=== PATIENT | male | born 1955 | race Caucasian/White ===

== ENCOUNTER 2017-03-05 07:42 | Inpatient (IN) | payer MEDICAID ==
[2017-03-05] MEDS ORDERED: CLINDAMYCIN 600 MG/D5W RTU 50 ML IV ONE (08:15)
[2017-03-05] MEDS ORDERED: LEVOFLOXACIN 750 MG/D5W RTU 150 ML IV ONE (08:15)
--- NOTE | 2017-03-05 08:20 | ER Document Report ---
ED Wound - General Chief Complaint: Wound Infection Stated Complaint: WOUND ON RIGHT FOOT Time Seen by Provider: 03/05/17 08:00 Mode of Arrival: Ambulatory Information source: Patient Notes: Patient is a 61-year-old male with diabetes who presents to the ER today for ulcer to the right foot. Patient states that he has had a chronic ulcer to the bottom of the right foot for a year, however over the past 3 days he has developed a blister that turned into an ulcer to the top of the right foot and then the entire foot became red overnight. He denies any fever, chills. He has peripheral neuropathy from his diabetes that he does not actually feel any pain to the foot. He has been going to wound care for the chronic ulcer. He denies any drainage from the area. TRAVEL OUTSIDE OF THE [place] IN LAST 30 DAYS: No - Related Data Allergies/Adverse Reactions: No Known Allergies Allergy (Verified 03/05/17 08:20) Past Medical History - General Information source: Patient - Social History Smoking Status: Unknown if Ever Smoked Family History: DM Patient has suicidal ideation: No Patient has homicidal ideation: Yes - Past Medical History Cardiac Medical History: Reports: Hx Hypertension Pulmonary Medical History: Reports: Hx Pneumonia Endocrine Medical History: Reports: Hx Diabetes Mellitus Type 2 Renal/ Medical History: Denies: Hx Peritoneal Dialysis Musculoskeltal Medical History: Reports Hx Arthritis - Immunizations Hx Diphtheria, Pertussis, Tetanus Vaccination: Yes Review of Systems - Review of Systems Constitutional: No symptoms reported EENT: No symptoms reported Cardiovascular: No symptoms reported Respiratory: No symptoms reported Gastrointestinal: No symptoms reported Genitourinary: No symptoms reported Male Genitourinary: No symptoms reported Musculoskeletal: No symptoms reported Skin: See HPI Hematologic/Lymphatic: No symptoms reported Neurological/Psychological: No symptoms reported Physical Exam - Vital signs Vitals: Temp Pulse Resp BP Pulse Ox 98.4 F 80 18 97/59 L 95 03/05/17 07:45 03/05/17 07:45 03/05/17 07:45 03/05/17 07:45 03/05/17 07:45 - Notes Notes: PHYSICAL EXAMINATION: GENERAL: Well-appearing and in no acute distress. HEAD: Atraumatic, normocephalic. EYES: Pupils equal round and reactive to light, extraocular movements intact, sclera anicteric, conjunctiva are normal. ENT: ear canals without erythema or foreign body, TMs pearly godwin with good bony landmarks, nares patent, oropharynx clear without exudates. Moist mucous membranes. NECK: Normal range of motion, supple without lymphadenopathy LUNGS: CTAB and equal. No wheezes rales or rhonchi. HEART: Regular rate and rhythm without murmurs EXTREMITIES: Normal range of motion,1+ pitting edema to right lower extremity. No cyanosis. NEUROLOGICAL: Cranial nerves grossly intact. Normal sensory/motor exams. PSYCH: Normal mood, normal affect. SKIN: Warm, Dry, normal turgor, 2cm in diameter diabetic ulcer to the right foot , plantar surface, no drainage, chronic, 4cm in diameter ulcer to the dorsal/ lateral surface of the right foot with large purulent fluid, erythema over entire dorsum of foot, nontender due to neuropathy. Course - Re-evaluation Re-evalutation: 03/05/17 10:40 A fly flew out of the right foot ulcer when unwrapped, pt afebrile with normal white blood cell count. However patient's wound looks like it needs to be debrided, it does appear like the 2 ulcers are probably connected, I have high suspicion for osteomyelitis although x-ray reports no evidence. I did have surgeon environmental manager Dr. Walden, take a look at the wound as well as my attending Dr. Love, who agreed that it probably needs debridement. Surgeon recommends MRI. Dr. Disla, hospitalist on-call agrees to admit at this time for IV antibiotics, possible debridement if surgical consult and MRI. - Vital Signs Vital signs: Temp Pulse Resp BP Pulse Ox 97.5 F 62 18 127/75 H 96 03/05/17 10:39 03/05/17 10:39 03/05/17 08:05 03/05/17 10:39 03/05/17 10:39 - Laboratory Result Diagrams: 03/05/17 08:31 03/05/17 08:31 Laboratory results interpreted by me: 03/05/17 03/05/17 08:31 08:31 RBC 3.89 L Hgb 9.8 L Hct 30.6 L MCV 79 L MCH 25.1 L MCHC 31.9 L RDW 14.6 H Eosinophils % 6.3 H Glucose 190 H Discharge - Discharge Clinical Impression: Diabetic foot infection Condition: Stable Disposition: ADMITTED INPATIENT Admitting Provider: Hospitalist Unit Admitted: Medical Floor
[2017-03-05 08:54] LABS: ABSOLUTE BASOPHILS # (AUTO) 0.1 10^3/uL (0.0-0.2); ABSOLUTE EOSINOPHILS # (AUTO) 0.6 10^3/uL (0.0-0.6); ABSOLUTE MONOCYTES (AUTO) 0.6 10^3/uL (0.1-1.4); ABSOLUTE NEUT (AUTO) 6.2 10^3/uL (1.7-8.2); BASOPHILS % (AUTO) 1.1 % (0-2); EOSINOPHILS % (AUTO) 6.3 % (0-6); HEMATOCRIT 30.6 % (37.9-51.0); HEMOGLOBIN 9.8 g/dL (13.5-17.0); HGB HCT DIFFERENCE -1.2; LYMPHOCYTES % (AUTO) 20.9 % (13-45); MEAN CORPUSCULAR HEMOGLOBIN 25.1 pg (27.0-33.4); MEAN CORPUSCULAR HGB CONC 31.9 g/dL (32.0-36.0); MEAN CORPUSCULAR VOLUME 79 fl (80-97); MONOCYTES % (AUTO) 6.1 % (3-13); RED BLOOD COUNT 3.89 10^6/uL (4.35-5.55); RED CELL DISTRIBUTION WIDTH 14.6 % (11.5-14.0); SEGMENTED NEUTROPHILS % (AUTO) 65.6 % (42-78); WHITE BLOOD COUNT 9.4 10^3/uL (4.0-10.5)
[2017-03-05 09:09] LABS: ALANINE AMINOTRANSFERASE 25 U/L (21-72); ALBUMIN 3.5 g/dL (3.5-5.0); ALKALINE PHOSPHATASE 58 U/L (38-126); ANION GAP 11 (5-19); ASPARTATE AMINO TRANSFERASE 20 U/L (17-59); BILIRUBIN,DIRECT 0.3 mg/dL (0.0-0.4); BILIRUBIN,TOTAL 0.6 mg/dL (0.2-1.3); BLOOD UREA NITROGEN 18 mg/dL (7-20); CALCIUM 9.3 mg/dL (8.4-10.2); CARBON DIOXIDE 26 mmol/L (22-30); CHLORIDE 102 mmol/L (98-107); CREATININE RESULT 1.07 mg/dL (0.52-1.25); GLUCOSE 190 mg/dL (75-110); POTASSIUM 4.8 mmol/L (3.6-5.0); SODIUM 139.1 mmol/L (137-145); TOTAL PROTEIN 7.1 g/dL (6.3-8.2)
--- NOTE | 2017-03-05 10:13 | RADIOLOGY REPORT (SQ) ---
EXAM DESCRIPTION: FOOT RIGHT COMPLETE COMPLETED DATE/TIME: 03/05/2017 9:40 am REASON FOR STUDY: diabetic foot infection COMPARISON: None. NUMBER OF VIEWS: Three views. TECHNIQUE: AP, lateral and oblique radiographic images acquired of the right foot. LIMITATIONS: None. FINDINGS: MINERALIZATION: Normal. BONES: No fracture or dislocation. No evidence of osteomyelitis. JOINTS: No effusions. SOFT TISSUES: There is a prominent wound on the lateral aspect of the foot near the head of 5th metat arsal. OTHER: No other significant finding. IMPRESSION: Soft tissue wound with no evidence of osteomyelitis. TECHNICAL DOCUMENTATION: JOB ID: [id number] [employer]- All Rights Reserved
[2017-03-05] MEDS ORDERED: DEXTROSE 50%-WATER 25 GM/50 ML DISP.SYRIN IV PRN ×2 (10:38)
[2017-03-05] MEDS ORDERED: DEXTROSE 40% GEL 15 GM TUBE PO PRN ×2 (10:38)
[2017-03-05] MEDS ORDERED: GLUCAGON,HUMAN RECOMB 1 MG INJ IM PRN (10:38)
[2017-03-05] MEDS ORDERED: ACETAMINOPHEN 325 MG TABLET PO PRN (10:41)
[2017-03-05] MEDS ORDERED: ONDANSETRON HCL INJ/PF 4 MG/2 ML SDV IV PRN (10:41)
[2017-03-05 10:59] LABS: PROTHROMBIN TIME 14.4 SEC (11.4-15.4)
[2017-03-05 11:00] LABS: PARTIAL THROMBOPLASTIN TIME 45.7 SEC (23.5-35.8)
--- NOTE | 2017-03-05 11:20 | RADIOLOGY REPORT (SQ) ---
EXAM DESCRIPTION: CHEST SINGLE VIEW COMPLETED DATE/TIME: 03/05/2017 11:08 am REASON FOR STUDY: preop COMPARISON: CT angio chest 10/27/2013 Chest films 10/26/2013, 04/05/2016, 09/27/2016 EXAM PARAMETERS: NUMBER OF VIEWS: One view. TECHNIQUE: Single frontal radiographic view of the chest acquired. RADIATION DOSE: NA LIMITATIONS: Lordotic AP portable film FINDINGS: LUNGS AND PLEURA: No opacities, masses or pneumothorax. No pleural effusion. MEDIASTINUM AND HILAR STRUCTURES: No masses. Contour normal. HEART AND VASCULAR STRUCTURES: Cardiac silhouette size accentuated by lordotic portable technique. M ild cardiomegaly. Sternotomy for CABG. BONES: No acute findings. HARDWARE: None in the chest. OTHER: No other significant finding. IMPRESSION: No acute findings TECHNICAL DOCUMENTATION: JOB ID: [id number]
[2017-03-05] MEDS ORDERED: ENOXAPARIN SODIUM INJ 40 MG/0.4 ML DISP.SYRIN SUBCUT ONE (11:30)
--- NOTE | 2017-03-05 14:02 | PDOC H&P ---
History of Present Illness Admission Date/PCP: 03/05/17 10:41 [facility] Patient complains of: Right foot drainage History of Present Illness: RICARDO WELLS is a 61 year old male with past medical history of diabetes mellitus, coronary artery disease status post coronary artery bypass graft, peripheral vascular disease status post left first toe amputation presents with 4 day history of increasing right foot swelling and now a new wound on dorsal aspect of lateral right foot with drainage. Patient has had a one-year history of diabetic foot ulcer on the lateral plantar aspect of the right first foot that he has provided local wound care to. He states that he is on oral hypoglycemics for diabetes however he does not recall the names of them top of his head. I do not see a record of medications being filled in the electronic medical record, however some pharmacies do not SYNC with our computer. Past Medical History Cardiac Medical History: Reports: Coronary Artery Disease, Hypertension, Peripheral Vascular Disease Pulmonary Medical History: Reports: Pneumonia Endocrine Medical History: Reports: Diabetes Mellitus Type 2 Musculoskeltal Medical History: Reports: Arthritis Past Surgical History Past Surgical History: Reports: Coronary Artery Bypass Graft, Orthopedic Surgery - left 2nd toe amputated Social History Information Source: Patient Lives with: Alone Smoking Status: Never Smoker Frequency of Alcohol Use: None Hx Recreational Drug Use: No Hx Prescription Drug Abuse: No - Advance Directive Resuscitation Status: Full Code Family History Family History: DM Parental Family History Reviewed: Yes Children Family History Reviewed: Yes Sibling(s) Family History Reviewed.: Yes Medication/Allergy Home Medications: Gabapentin [Neurontin 300 mg Capsule] 300 mg PO QHS #30 capsule 11/01/13 Glimepiride [Amaryl 1 mg Tablet] 2 mg PO QAM #30 tablet 11/01/13 Metformin HCl [Glucophage 500 mg Tablet] 1,000 mg PO BIDACBS #60 tablet Allergies/Adverse Reactions: No Known Allergies Allergy (Verified 03/05/17 08:20) Review of Systems Constitutional: ABSENT: chills, fever(s), headache(s), weight gain, weight loss Eyes: ABSENT: visual disturbances Ears: ABSENT: hearing changes Cardiovascular: ABSENT: chest pain, dyspnea on exertion, edema, orthropnea, palpitations Respiratory: ABSENT: cough, hemoptysis Gastrointestinal: ABSENT: abdominal pain, constipation, diarrhea, hematemesis, hematochezia, nausea, vomiting Genitourinary: ABSENT: dysuria, hematuria Musculoskeletal: ABSENT: joint swelling Integumentary: PRESENT: erythema, wounds, other - Drainage from right foot wound. ABSENT: rash Neurological: ABSENT: abnormal gait, abnormal speech, confusion, dizziness, focal weakness, syncope Psychiatric: ABSENT: anxiety, depression, homidical ideation, suicidal ideation Endocrine: ABSENT: cold intolerance, heat intolerance, polydipsia, polyuria Hematologic/Lymphatic: ABSENT: easy bleeding, easy bruising Physical Exam Vital Signs: Temp Pulse Resp BP Pulse Ox 97.5 F 63 20 126/79 H 96 03/05/17 12:46 03/05/17 12:46 03/05/17 12:46 03/05/17 12:46 03/05/17 12:46 PHYSICAL EXAM: GENERAL: Appears well, no acute distress HEENT: Normocephalic, no scleral icterus, conjunctiva clear, EOEM intact, PERRLA , moist mucous membranes NECK: trachea midline, no thyromegally RESPIRATORY: Clear to auscultation, no wheezes/rhonchi CARDIAC: Regular rate and rhythm, no murmur/susan/rub ABDOMEN: Soft, no distension, no tenderness, no guarding, normal bowel sounds, negative Gomez sign RECTAL: deferred : deferred EXTREMITIES: No edema, cyanosis, clubbing MUSCULOSKELETAL: No joint swelling or deformity VASCULAR: Diminished dorsalis pedis pulse in right foot, right foot is warm to touch, hair loss pattern in right lower extremity consistent with peripheral vascular disease NEUROLOGIC: Alert, oriented to person/place/time, normal speech, cranial nerves grossly intact, 5/5 strength in all extremities, tactile sensation intact in all extremities SKIN: 1 cm open wound to dorsal aspect of right lateral foot with purulent drainage and surrounding erythema, 1 cm open ulceration to plantar aspect of lateral right foot PSYCHIATRIC: Normal mood, normal affect Results Laboratory Results: Labs- All tests 24 hr 03/05/17 03/05/17 03/05/17 08:31 08:31 08:31 WBC 9.4 RBC 3.89 L Hgb 9.8 L Hct 30.6 L MCV 79 L MCH 25.1 L MCHC 31.9 L RDW 14.6 H Plt Count 377 Seg Neutrophils % 65.6 Lymphocytes % 20.9 Monocytes % 6.1 Eosinophils % 6.3 H Basophils % 1.1 Absolute Neutrophils 6.2 Absolute Lymphocytes 2.0 Absolute Monocytes 0.6 Absolute Eosinophils 0.6 Absolute Basophils 0.1 PT 14.4 INR 1.05 APTT 45.7 H Sodium 139.1 Potassium 4.8 Chloride 102 Carbon Dioxide 26 Anion Gap 11 BUN 18 Creatinine 1.07 Est GFR ( Amer) > 60 Est GFR (Non-Af Amer) > 60 Glucose 190 H POC Glucose Calcium 9.3 Total Bilirubin 0.6 Direct Bilirubin 0.3 Indirect Bilirubin Not Reportable Neonat Total Bilirubin Not Reportable AST 20 ALT 25 Alkaline Phosphatase 58 Total Protein 7.1 Albumin 3.5 03/05/17 11:27 WBC RBC Hgb Hct MCV MCH MCHC RDW Plt Count Seg Neutrophils % Lymphocytes % Monocytes % Eosinophils % Basophils % Absolute Neutrophils Absolute Lymphocytes Absolute Monocytes Absolute Eosinophils Absolute Basophils PT INR APTT Sodium Potassium Chloride Carbon Dioxide Anion Gap BUN Creatinine Est GFR ( Amer) Est GFR (Non-Af Amer) Glucose POC Glucose 141 H Calcium Total Bilirubin Direct Bilirubin Indirect Bilirubin Neonat Total Bilirubin AST ALT Alkaline Phosphatase Total Protein Albumin Impressions: Foot X-Ray 03/05/17 08:15 IMPRESSION: Soft tissue wound with no evidence of osteomyelitis. Chest X-Ray 03/05/17 10:43 IMPRESSION: No acute findings Assessment & Plan - Diagnosis (1) Diabetic foot infection Is this a current diagnosis for this admission?: YesPlan: Start patient on IV antibiotics. Consult surgery for recommendations. Check MRI of the foot. (2) Diabetic foot ulcer Qualifiers: Diabetic foot ulcer location: midfoot Diabetes mellitus type: type 2 Laterality: right Non-pressure ulcer stage: unspecified non-pressure ulcer stage Qualified Code(s): E11.621 - Type 2 diabetes mellitus with foot ulcer; L97.419 - Non-pressure chronic ulcer of right heel and midfoot with unspecified severity Is this a current diagnosis for this admission?: Yes (3) Diabetes Is this a current diagnosis for this admission?: YesPlan: Hold oral hypoglycemics for now to see if patient will need surgery. Sliding scale insulin. Check hemoglobin A1c. (4) Coronary artery disease Is this a current diagnosis for this admission?: Yes (5) Peripheral vascular disease Is this a current diagnosis for this admission?: YesPlan: Status post remote left first toe amputation. Check lipid panel. Consider addition of aspirin if patient does not require surgery given history of coronary artery disease. - Time Time Spent: Greater than 70 Minutes
--- NOTE | 2017-03-05 14:47 | RADIOLOGY REPORT (SQ) ---
EXAM DESCRIPTION: MRI RT LOWER EXTREMITY WITHOUT COMPLETED DATE/TIME: 03/05/2017 2:03 pm REASON FOR STUDY: right foot infection COMPARISON: None. TECHNIQUE: T1-weighted, T2-weighted, and gradient echo noncontrast multiplanar imaging of the right foot. LIMITATIONS: None. FINDINGS: Patient has a soft tissue ulcer along the plantar aspect of the right 5th metatarsophalang eal joint. This is best shown on coronal image 16 and sagittal image 3. No adjacent marrow signal a bnormalities of the 5th metatarsal head or base proximal 5th toe proximal phalanx. However, there is some cortical thinning of the 5th metatarsal diaphysis on axial image 19 worrisome for early involve ment with osteomyelitis. About 2 cm dorsal to the ulceration, there is a 2 x 2 x 1 cm fluid collection along the dorsal latera l aspect of the right foot, at the level of the distal diaphysis 5th metatarsal. This finding is wor risome for abscess. This wraps around from the dorsal aspect of the foot, along the lateral subcutan eous fat, and into the plantar aspect of the right foot subcutaneous fat. Along the plantar aspect o f the foot, a 2 x 1 x 1.3 cm fluid collection is evident on axial STIR image 19, coronal image 27, an d sagittal image 8. This plantar fluid collection is superficial to the flexor digitorum tendons and muscle. Diffuse surrounding skin thickening and edema from cellulitis. MARROW SIGNAL: No marrow signal abnormalities worrisome for occult fracture. Cortical thinning, 5th metatarsal proximal diaphysis worrisome for early involvement with osteomyelitis JOINT EFFUSION: No significant effusions. PLANTAR FASCIA: Normal as visualized. TARSOMETATARSAL AND TOE ARTICULATIONS: Anatomic. Mild degenerative changes first metatarsal phalange al joint. INTERMETATARSAL SPACES AND PLANTAR PLATES: Intact. No soft tissue mass to suggest a neuroma. SOFT TISSUES: As above OTHER: No other significant finding. IMPRESSION: Right foot plantar ulcer at the 5th metatarsophalangeal region with surrounding cellulit is and soft tissue abscess as above. Early demineralization of the lateral edge 5th metatarsal distal metaphysis worrisome for early invol vement with osteomyelitis TECHNICAL DOCUMENTATION: JOB ID: [id number] [employer]- All Rights Reserved
[2017-03-05] MEDS: CLINDAMYCIN 600 MG/D5W RTU 50 ML IV SCH ×2 (14:50→22:12)
[2017-03-05 15:35] LABS: FOLATE 9.49 ng/mL (>2.76)
--- NOTE | 2017-03-05 21:22 | EKG REPORT ---
SEVERITY:- ABNORMAL ECG - SINUS RHYTHM BORDERLINE LEFT AXIS DEVIATION CONSIDER ANTEROSEPTAL INFARCT : Confirmed by: Rafaela Treviño 05-Mar-2017 21:21:49
--- NOTE | 2017-03-05 21:36 | PDOC CONSULTATION ---
Consultation Consult Date: 03/05/17 Attending physician:: RICARDO CHESTER Consult reason:: Ulcer dorsum of right foot History of Present Illness Admission Date/PCP: 03/05/17 10:41 Patient complains of: Draining ulcer on his right foot 3 days duration History of Present Illness: RICARDO WELLS is a 61 year old male with past medical history of diabetes mellitus, coronary artery disease status post coronary artery bypass graft, peripheral vascular disease status post left first toe amputation presents with 4 day history of increasing right foot swelling and now a new wound on dorsal aspect of lateral right foot with drainage. Patient has had a one-year history of diabetic foot ulcer on the lateral plantar aspect of the right first foot that he has provided local wound care to. He states that he is on oral hypoglycemics for diabetes however he does not recall the names of them top of his head. I do not see a record of medications being filled in the electronic medical record, however some pharmacies do not SYNC with our computer. The patient also admits to a history of an ulcer on the plantar surface of the right foot that he noticed approximately 1 year ago. He is seeing physicians for that in the past and they told him to continue to "take care of it with Neosporin and gauze dressings. He states he has been doing that but at times when he walks on it for prolonged period of time it begins to open again and drained. He denies any fever, chills, sweats associated with the new ulcer that was noted approximately 3 days ago. He denies any pain in the right foot. Past Medical History Cardiac Medical History: Reports: Coronary Artery Disease, Hypertension, Peripheral Vascular Disease Pulmonary Medical History: Reports: Pneumonia Endocrine Medical History: Reports: Diabetes Mellitus Type 2 Musculoskeltal Medical History: Reports: Arthritis Past Surgical History Past Surgical History: Reports: Coronary Artery Bypass Graft, Orthopedic Surgery - left 2nd toe amputated Social History Lives with: Alone Smoking Status: Former Smoker Frequency of Alcohol Use: None Hx Recreational Drug Use: No Hx Prescription Drug Abuse: No - Advance Directive Resuscitation Status: Full Code Family History Family History: DM Parental Family History Reviewed: Yes - dm Children Family History Reviewed: Unknown Sibling(s) Family History Reviewed.: Unknown Medication/Allergy Home Medications: Furosemide [Lasix] 40 mg PO DAILY 03/05/17 Gabapentin [Neurontin 300 mg Capsule] 300 mg PO Q8 03/05/17 Metformin HCl [Glucophage] 850 mg PO DAILY 03/05/17 Potassium Chloride [K-Tab ER] 20 meq PO DAILY 03/05/17 Allergies/Adverse Reactions: No Known Allergies Allergy (Verified 03/05/17 08:20) Review of Systems Constitutional: PRESENT: as per HPI Eyes: PRESENT: as per HPI, other - Diabetic retinopathy Ears: ABSENT: hearing changes Cardiovascular: PRESENT: as per HPI Respiratory: PRESENT: as per HPI Gastrointestinal: PRESENT: other - Positive large hernia near his umbilicus Genitourinary: PRESENT: as per HPI Musculoskeletal: PRESENT: as per HPI Integumentary: PRESENT: wounds - Right foot plantar surface overlying the fifth metatarsal head Right foot anterior lateral surface overlying the fifth metatarsal head Neurological: PRESENT: as per HPI, other - Positive for diabetic neuropathy lower extremities bilaterally nearly to the level of the knee Psychiatric: PRESENT: as per HPI Endocrine: PRESENT: as per HPI, polydipsia, polyphagia, polyuria Hematologic/Lymphatic: PRESENT: as per HPI Allergic/Immunologic: PRESENT: as per HPI Physical Exam Vital Signs: Temp Pulse Resp BP Pulse Ox 97.8 F 68 18 121/80 97 03/05/17 14:41 03/05/17 14:41 03/05/17 14:41 03/05/17 14:41 03/05/17 14:41 Intake & Output 03/04/17 03/05/17 03/06/17 06:59 06:59 06:59 Intake Total 930 Balance 930 Weight 120.3 kg General appearance: PRESENT: no acute distress, obese, well-developed, well- nourished Head exam: PRESENT: atraumatic, normocephalic Eye exam: PRESENT: conjunctiva pink, EOMI, PERRLA. ABSENT: scleral icterus Ear exam: PRESENT: normal external ear exam Mouth exam: PRESENT: moist, tongue midline Neck exam: ABSENT: carotid bruit, JVD, lymphadenopathy, thyromegaly Respiratory exam: PRESENT: clear to auscultation angie. ABSENT: rales, rhonchi, wheezes Cardiovascular exam: PRESENT: RRR. ABSENT: diastolic murmur, rubs, systolic murmur Pulses: PRESENT: normal dorsalis pedis pul, +1 pedal pulses bilateral Vascular exam: PRESENT: normal capillary refill GI/Abdominal exam: PRESENT: hernia - Umbilical hernia, incarcerated with associated diastases recti cephalad to the incarcerated umbilical hernia Rectal exam: PRESENT: deferred Extremities exam: PRESENT: full ROM. ABSENT: calf tenderness, clubbing, pedal edema Musculoskeletal exam: PRESENT: ambulatory Neurological exam: PRESENT: alert, awake, oriented to person, oriented to place , oriented to time, oriented to situation, CN II-XII grossly intact. ABSENT: motor sensory deficit Psychiatric exam: PRESENT: appropriate affect, normal mood. ABSENT: homicidal ideation, suicidal ideation Skin exam: PRESENT: other - Positive for the above-noted ulcers right foot Results Laboratory Results: Labs- Entire Visit 03/05/17 03/05/17 03/05/17 08:31 08:31 08:31 WBC 9.4 RBC 3.89 L Hgb 9.8 L Hct 30.6 L MCV 79 L MCH 25.1 L MCHC 31.9 L RDW 14.6 H Plt Count 377 Seg Neutrophils % 65.6 Lymphocytes % 20.9 Monocytes % 6.1 Eosinophils % 6.3 H Basophils % 1.1 Absolute Neutrophils 6.2 Absolute Lymphocytes 2.0 Absolute Monocytes 0.6 Absolute Eosinophils 0.6 Absolute Basophils 0.1 Retic Count (auto) Absolute Retic PT 14.4 INR 1.05 APTT 45.7 H Sodium 139.1 Potassium 4.8 Chloride 102 Carbon Dioxide 26 Anion Gap 11 BUN 18 Creatinine 1.07 Est GFR ( Amer) > 60 Est GFR (Non-Af Amer) > 60 Glucose 190 H POC Glucose Hemoglobin A1c % Calcium 9.3 Iron TIBC % Saturation Ferritin Total Bilirubin 0.6 Direct Bilirubin 0.3 Indirect Bilirubin Not Reportable Neonat Total Bilirubin Not Reportable AST 20 ALT 25 Alkaline Phosphatase 58 Total Protein 7.1 Albumin 3.5 Vitamin B12 Folate 03/05/17 03/05/17 03/05/17 08:31 08:31 08:31 WBC RBC Hgb Hct MCV MCH MCHC RDW Plt Count Seg Neutrophils % Lymphocytes % Monocytes % Eosinophils % Basophils % Absolute Neutrophils Absolute Lymphocytes Absolute Monocytes Absolute Eosinophils Absolute Basophils Retic Count (auto) 1.36 Absolute Retic 0.052 PT INR APTT Sodium Potassium Chloride Carbon Dioxide Anion Gap BUN Creatinine Est GFR ( Amer) Est GFR (Non-Af Amer) Glucose POC Glucose Hemoglobin A1c % 7.5 H Calcium Iron 36.0 L TIBC 273 % Saturation 13 Ferritin 110.00 Total Bilirubin Direct Bilirubin Indirect Bilirubin Neonat Total Bilirubin AST ALT Alkaline Phosphatase Total Protein Albumin Vitamin B12 291.0 Folate 9.49 03/05/17 03/05/17 11:27 16:10 WBC RBC Hgb Hct MCV MCH MCHC RDW Plt Count Seg Neutrophils % Lymphocytes % Monocytes % Eosinophils % Basophils % Absolute Neutrophils Absolute Lymphocytes Absolute Monocytes Absolute Eosinophils Absolute Basophils Retic Count (auto) Absolute Retic PT INR APTT Sodium Potassium Chloride Carbon Dioxide Anion Gap BUN Creatinine Est GFR ( Amer) Est GFR (Non-Af Amer) Glucose POC Glucose 141 H 130 H Hemoglobin A1c % Calcium Iron TIBC % Saturation Ferritin Total Bilirubin Direct Bilirubin Indirect Bilirubin Neonat Total Bilirubin AST ALT Alkaline Phosphatase Total Protein Albumin Vitamin B12 Folate Impressions: Lower Extremity MRI 03/05/17 00:00 IMPRESSION: Right foot plantar ulcer at the 5th metatarsophalangeal region with surrounding cellulitis and soft tissue abscess as above. Early demineralization of the lateral edge 5th metatarsal distal metaphysis worrisome for early involvement with osteomyelitis Foot X-Ray 03/05/17 08:15 IMPRESSION: Soft tissue wound with no evidence of osteomyelitis. Chest X-Ray 03/05/17 10:43 IMPRESSION: No acute findings Status: Image reviewed by me Assessment & Plan - Diagnosis (1) Diabetic foot infection Is this a current diagnosis for this admission?: YesPlan: 1. Will do provide the foot at the bedside this evening to remove the necrotic debris within the ulcer. Will begin wet-to-dry Dakin solution for the next 24 hours. (2) Peripheral vascular disease Is this a current diagnosis for this admission?: Yes (3) Osteomyelitis of right foot Qualifiers: Osteomyelitis type: other acute Qualified Code(s): M86.171 - Other acute osteomyelitis, right ankle and foot Is this a current diagnosis for this admission?: YesPlan: Patient will need long-term antibiotics with possible debridement of bone if the osteomyelitis does not resolve on 6 weeks of IV antibiotics and repeat MRI of the foot - Time Time Spent: Greater than 70 Minutes - Debridement anterior lateral foot at bedside - Inpatient Certification Medical Necessity: Need for IV Antibiotics
--- NOTE | 2017-03-05 21:55 | Operative Report ---
Operative Report DATE OF SURGERY: 03/05/17 Operative Report: Incision and alignment of diabetic ulcer with osteomyelitis right anterior foot PREOPERATIVE DIAGNOSIS: Diabetic foot ulcer right lateral anterior foot overlying the fifth metatarsal head POSTOPERATIVE DIAGNOSIS: Same with communication with ulcer plantar surface right foot overlying fifth metatarsal head OPERATION: Debridement of diabetic ulcer right anterior lateral foot SURGEON: MARIELENA SMITH ANESTHESIA: Other - None TISSUE REMOVED OR ALTERED: Necrotic debris, skin and subcutaneous fat COMPLICATIONS: None ESTIMATED BLOOD LOSS: 1 cc INTRAOPERATIVE FINDINGS: 2.5 cm x 1.5 cm x 1 cm ulcer right anterior lateral foot overlying the fifth metatarsal head anteriorly with undermining communication with a ulcer on the posterior plantar surface overlying the fifth metatarsal head PROCEDURE: The right foot overlying the ulcer was prepped with Betadine solution draped in sterile fashion. Utilizing a scalpel blade the skin and subcutaneous tissue was divided sharply. Once active bleeding was noted along the skin and subcutaneous tissue the circumferential dissection was discontinued however the dissection in the subcutaneous space along the depth of the wound was divided sharply utilizing the same scalpel blade. With no evidence of active bleeding noted in this area the wound was probed and found to course along the lateral aspect of the foot onto the plantar surface laterally and communicated with an ulcer on the plantar surface of the foot overlying the fifth metatarsal head. The wound was irrigated with saline solution and Betadine solution followed by packing with iodoform gauze and a bulky sterile dressing was placed over the wound patient tolerated the procedure well.
[2017-03-06 04:35] LABS: ABSOLUTE BASOPHILS # (AUTO) 0.1 10^3/uL (0.0-0.2); ABSOLUTE EOSINOPHILS # (AUTO) 0.6 10^3/uL (0.0-0.6); ABSOLUTE MONOCYTES (AUTO) 0.6 10^3/uL (0.1-1.4); ABSOLUTE NEUT (AUTO) 5.4 10^3/uL (1.7-8.2); BASOPHILS % (AUTO) 0.9 % (0-2); HEMATOCRIT 28.6 % (37.9-51.0); HEMOGLOBIN 9.4 g/dL (13.5-17.0); HGB HCT DIFFERENCE -0.4; LYMPHOCYTES % (AUTO) 23.1 % (13-45); MEAN CORPUSCULAR HEMOGLOBIN 25.6 pg (27.0-33.4); MEAN CORPUSCULAR HGB CONC 32.9 g/dL (32.0-36.0); MEAN CORPUSCULAR VOLUME 78 fl (80-97); RED BLOOD COUNT 3.68 10^6/uL (4.35-5.55); RED CELL DISTRIBUTION WIDTH 14.3 % (11.5-14.0); WHITE BLOOD COUNT 8.8 10^3/uL (4.0-10.5)
[2017-03-06 04:42] LABS: ANION GAP 11 (5-19); BLOOD UREA NITROGEN 15 mg/dL (7-20); CALCIUM 9.1 mg/dL (8.4-10.2); CARBON DIOXIDE 25 mmol/L (22-30); CHLORIDE 104 mmol/L (98-107); CHOLESTEROL 152.86 mg/dL (0-200); CREATININE RESULT 0.93 mg/dL (0.52-1.25); Direct HDL 21 mg/dL (>40); GLUCOSE 118 mg/dL (75-110); POTASSIUM 4.6 mmol/L (3.6-5.0); SODIUM 139.7 mmol/L (137-145); TRIGLYCERIDES 116 mg/dL (<150)
[2017-03-06 04:53] LABS: DIRECT LDL 102 mg/dL (<100)
[2017-03-06] MEDS: CLINDAMYCIN 600 MG/D5W RTU 50 ML IV SCH ×2 (06:08→13:37)
[2017-03-06] MEDS: LEVOFLOXACIN 750 MG/D5W RTU 150 ML IV SCH (09:35)
[2017-03-06] MEDS: ENOXAPARIN SODIUM INJ 40 MG/0.4 ML DISP.SYRIN SUBCUT SCH (09:45)
--- NOTE | 2017-03-06 09:53 | PDOC PROGRESS REPORT ---
Subjective Progress Note for:: 03/06/17 Subjective:: Right lateral dorsal foot with debrided open wound that appears clean with no purulent drainage. Ulcer at the plantar surface of the right lateral foot at the region of the fifth metatarsal head that also appears clean with no purulent drainage. Subtle erythema at the lateral aspect of his right foot with no fluctuance no crepitus no skin discoloration. Physical Exam Vital Signs: Temp Pulse Resp BP Pulse Ox 97.8 F 67 20 109/53 L 93 03/05/17 23:34 03/05/17 23:34 03/05/17 23:34 03/05/17 23:34 03/05/17 23:34 Intake & Output 03/05/17 03/06/17 03/07/17 06:59 06:59 06:59 Intake Total 1610 Balance 1610 Weight 120.3 kg Results Laboratory Results: 03/06/17 03:49 03/06/17 03:49 03/06/17 03/06/17 03:49 03:49 WBC 8.8 RBC 3.68 L Hgb 9.4 L Hct 28.6 L MCV 78 L MCH 25.6 L MCHC 32.9 RDW 14.3 H Plt Count 337 Seg Neutrophils % 62.0 Lymphocytes % 23.1 Monocytes % 7.0 Eosinophils % 7.0 H Basophils % 0.9 Absolute Neutrophils 5.4 Absolute Lymphocytes 2.0 Absolute Monocytes 0.6 Absolute Eosinophils 0.6 Absolute Basophils 0.1 Sodium 139.7 Potassium 4.6 Chloride 104 Carbon Dioxide 25 Anion Gap 11 BUN 15 Creatinine 0.93 Est GFR ( Amer) > 60 Est GFR (Non-Af Amer) > 60 Glucose 118 H Calcium 9.1 Triglycerides 116 Cholesterol 152.86 LDL Cholesterol Direct 102 H VLDL Cholesterol 23.0 HDL Cholesterol 21 L Impressions: Lower Extremity MRI 03/05/17 00:00 IMPRESSION: Right foot plantar ulcer at the 5th metatarsophalangeal region with surrounding cellulitis and soft tissue abscess as above. Early demineralization of the lateral edge 5th metatarsal distal metaphysis worrisome for early involvement with osteomyelitis Foot X-Ray 03/05/17 08:15 IMPRESSION: Soft tissue wound with no evidence of osteomyelitis. Chest X-Ray 03/05/17 10:43 IMPRESSION: No acute findings Assessment & Plan - Diagnosis (1) Diabetic foot infection Is this a current diagnosis for this admission?: YesPlan: Status post debridement. Improved with debridement and antibiotics. I have had a long discussion with the patient concerning the possibility of needing a right fifth toe amputation with fifth metatarsal resection. Patient is very reluctant to undergo this surgery. He wants to see his response with initial debridement. It appears reasonable since he has had improvement in the wounds look pretty good today. However if he has any worsening or failure to improve, will need the more radical debridement with fifth metatarsal resection
[2017-03-06] MEDS ORDERED: ONDANSETRON HCL INJ/PF 4 MG/2 ML SDV IV PRN (12:19)
--- NOTE | 2017-03-06 12:26 | PDOC PROGRESS REPORT ---
Subjective Progress Note for:: 03/06/17 Subjective:: Patient feels much better today in general. He states that the swelling in his right foot has improved significantly since incision and drainage today. He is concerned about his blood sugars and the fact that his metformin is being held. Patient denies fever, chills, headache, new focal weakness, chest pain, shortness of breath, abdominal pain, nausea, vomiting, diarrhea, constipation. Physical Exam Vital Signs: Temp Pulse Resp BP Pulse Ox 98.1 F 70 20 142/78 H 97 03/06/17 11:03 03/06/17 11:03 03/06/17 11:03 03/06/17 11:03 03/06/17 11:03 Intake & Output 03/05/17 03/06/17 03/07/17 06:59 06:59 06:59 Intake Total 1610 Balance 1610 Weight 120.3 kg GENERAL: No acute distress HEENT: Conjunctiva clear, nonicteric, moist mucous membranes, no JVD, midline trachea RESPIRATORY: Clear to auscultation bilaterally, no wheezes, no rhonchi CARDIAC: Regular rate and rhythm, no murmurs/gallops/rubs ABDOMEN: Soft, nondistended, nontender, positive bowel sounds, no rebound, no guarding EXTREMETIES: No edema, cyanosis, clubbing NEUROLOGIC: Alert, oriented to person/place/time, CN's grossly intact, no focal deficits SKIN: Bandage to right foot clean/dry/intact PSYCH: Normal mood, normal affect Results Laboratory Results: 03/06/17 03:49 03/06/17 03:49 03/06/17 03/06/17 03:49 03:49 WBC 8.8 RBC 3.68 L Hgb 9.4 L Hct 28.6 L MCV 78 L MCH 25.6 L MCHC 32.9 RDW 14.3 H Plt Count 337 Seg Neutrophils % 62.0 Lymphocytes % 23.1 Monocytes % 7.0 Eosinophils % 7.0 H Basophils % 0.9 Absolute Neutrophils 5.4 Absolute Lymphocytes 2.0 Absolute Monocytes 0.6 Absolute Eosinophils 0.6 Absolute Basophils 0.1 Sodium 139.7 Potassium 4.6 Chloride 104 Carbon Dioxide 25 Anion Gap 11 BUN 15 Creatinine 0.93 Est GFR ( Amer) > 60 Est GFR (Non-Af Amer) > 60 Glucose 118 H Calcium 9.1 Triglycerides 116 Cholesterol 152.86 LDL Cholesterol Direct 102 H VLDL Cholesterol 23.0 HDL Cholesterol 21 L Impressions: Lower Extremity MRI 03/05/17 00:00 IMPRESSION: Right foot plantar ulcer at the 5th metatarsophalangeal region with surrounding cellulitis and soft tissue abscess as above. Early demineralization of the lateral edge 5th metatarsal distal metaphysis worrisome for early involvement with osteomyelitis Foot X-Ray 03/05/17 08:15 IMPRESSION: Soft tissue wound with no evidence of osteomyelitis. Chest X-Ray 03/05/17 10:43 IMPRESSION: No acute findings Assessment & Plan - Diagnosis (1) Diabetic foot infection Is this a current diagnosis for this admission?: YesPlan: Status post incision and drainage of right foot on 03/05/2017. Wound culture tentatively growing gram-negative rods. Continue the Levaquin and IV clindamycin until further identification and susceptibility. (2) Diabetic foot ulcer Qualifiers: Diabetic foot ulcer location: midfoot Diabetes mellitus type: type 2 Laterality: right Non-pressure ulcer stage: unspecified non-pressure ulcer stage Qualified Code(s): E11.621 - Type 2 diabetes mellitus with foot ulcer; L97.509 - Non-pressure chronic ulcer of other part of unspecified foot with unspecified severity Is this a current diagnosis for this admission?: Yes (3) Diabetes Is this a current diagnosis for this admission?: YesPlan: Resume metformin in a.m. Continue sliding scale insulin for now. Hemoglobin A1c 7.5. (4) Coronary artery disease Is this a current diagnosis for this admission?: YesPlan: Start aspirin 81 mg daily. Start Lipitor 20 mg daily. (5) Peripheral vascular disease Is this a current diagnosis for this admission?: YesPlan: Status post remote left first toe amputation. Aspirin, Lipitor. - Time Time Spent with patient: 25-34 minutes
[2017-03-06] MEDS: INSULIN LISPRO 100 UNIT/ML 3 ML VIAL SUBCUT PRN ×2 (13:37→21:27)
[2017-03-06] MEDS: GABAPENTIN 300 MG CAPSULE PO SCH ×2 (13:37→21:27)
[2017-03-06] MEDS: ATORVASTATIN CALCIUM 20 MG TABLET PO SCH (21:27)
[2017-03-07] MEDS: CLINDAMYCIN 600 MG/D5W RTU 50 ML IV SCH ×4 (00:19→21:37)
[2017-03-07] MEDS: GABAPENTIN 300 MG CAPSULE PO SCH ×3 (05:23→21:37)
[2017-03-07 06:08] LABS: ABSOLUTE BASOPHILS # (AUTO) 0.1 10^3/uL (0.0-0.2); ABSOLUTE EOSINOPHILS # (AUTO) 0.5 10^3/uL (0.0-0.6); ABSOLUTE MONOCYTES (AUTO) 0.6 10^3/uL (0.1-1.4); ABSOLUTE NEUT (AUTO) 4.2 10^3/uL (1.7-8.2); BASOPHILS % (AUTO) 1.1 % (0-2); EOSINOPHILS % (AUTO) 7.4 % (0-6); HEMATOCRIT 29.2 % (37.9-51.0); HEMOGLOBIN 9.6 g/dL (13.5-17.0); HGB HCT DIFFERENCE -0.4; LYMPHOCYTES % (AUTO) 27.2 % (13-45); MEAN CORPUSCULAR HEMOGLOBIN 25.6 pg (27.0-33.4); MEAN CORPUSCULAR VOLUME 78 fl (80-97); MONOCYTES % (AUTO) 7.6 % (3-13); RED BLOOD COUNT 3.76 10^6/uL (4.35-5.55); RED CELL DISTRIBUTION WIDTH 14.2 % (11.5-14.0); SEGMENTED NEUTROPHILS % (AUTO) 56.7 % (42-78); WHITE BLOOD COUNT 7.4 10^3/uL (4.0-10.5)
[2017-03-07 06:29] LABS: ANION GAP 8 (5-19); BLOOD UREA NITROGEN 15 mg/dL (7-20); CALCIUM 9.1 mg/dL (8.4-10.2); CARBON DIOXIDE 27 mmol/L (22-30); CHLORIDE 105 mmol/L (98-107); CREATININE RESULT 0.89 mg/dL (0.52-1.25); GLUCOSE 147 mg/dL (75-110); SODIUM 140.2 mmol/L (137-145)
[2017-03-07 06:30] LABS: POTASSIUM 5.4 mmol/L (3.6-5.0)
[2017-03-07] MEDS ORDERED: (PENDING PHARMACY ID) (Potassium Chloride [K-Tab Er] 20 MEQ) PO SCH (10:00)
[2017-03-07] MEDS ORDERED: METFORMIN HCL 850 MG TABLET PO SCH (10:00)
[2017-03-07] MEDS ORDERED: POTASSIUM CHLORIDE 10 MEQ TABLET.SA PO SCH (10:00)
[2017-03-07] MEDS: ASPIRIN 81 MG TABLET, ENT COATED PO SCH (10:18)
[2017-03-07] MEDS: LEVOFLOXACIN 750 MG/D5W RTU 150 ML IV SCH (10:18)
[2017-03-07] MEDS: FUROSEMIDE 40 MG TABLET PO SCH (10:19)
[2017-03-07] MEDS: ENOXAPARIN SODIUM INJ 40 MG/0.4 ML DISP.SYRIN SUBCUT SCH (10:20)
[2017-03-07] MEDS: INSULIN LISPRO 100 UNIT/ML 3 ML VIAL SUBCUT PRN (11:54)
--- NOTE | 2017-03-07 15:02 | RADIOLOGY REPORT (SQ) ---
EXAM DESCRIPTION: PICC INSERTION; FLUORO/CV PLACEMENT; U/S GUIDE FOR VASCULAR ACCESS COMPLETED DATE/TIME: 03/07/2017 2:51 pm REASON FOR STUDY: HOME IV ANTIBIOTICS; HOME IV ABX; IV ACCESS COMPARISON: AP chest 03/05/2017, two-view chest 09/27/2016 FLUOROSCOPY TIME: 8 seconds 1 digital chest and 1 ultrasound images saved to PACS. TECHNIQUE: Fluoroscopic and ultrasound guided PICC placement. LIMITATIONS: None. PROCEDURE: After written consent and assessment were obtained, the patient was brought into the fluo roscopy room and place supine on the table. Ultrasound was used on the patient's right arm for PICC access. The right arm was prepped and draped in a sterile fashion along with the ultrasound probe. Th e entry site was anesthetized with 3.5 mL of 1% lidocaine. A 21 gauge 7 cm needle was advanced throug h the skin and into the right basilic vein under live ultrasound guidance. An ultrasound image was s aved to PACS confirming access site. A .018 guide wire was then inserted through the needle and into the venous system. The needle was the removed and an 11 blade scalpel was used to make a 1cm skin in cision. A 5 fr peel-away sheath was advanced over the wire and into the venous system. A measurement was then made using the existing wire and live fluoroscopic guidance. The wire was then removed and the trimmed. The PICC was advanced through the peel-away sheath and into the venous system. The peel- away sheath was removed and the catheter was adhered to the patients arm with a stat lock. The cathet er was then aspirated and flushed and a sterile bandage was placed over the access site. A fluorosco pic spot image was saved to PACS confirming the catheter tip within the superior vena cava. IMPRESSION: SUCCESSFUL PLACEMENT OF A 5 FR DUAL LUMEN 37 CM PICC IN THE right basilic VEIN. COMMENT: Patient medication list reviewed: Yes- Quality ID# [id number]:Eligible professional attests to doc umenting in the medical record they obtained, updated, or reviewed the patient's current medications. . Quality ID 145: Final reports for procedures using fluoroscopy that document radiation exposure joselyn judith, or exposure time and number of fluorographic images (if radiation exposure indices are not avail able) Quality ID #76: The patient was prepped and draped using maximum sterile barrier technique including cap, mask, sterile gown, sterile gloves, a large sterile sheet, hand hygiene, and 2% Chlorhexidine fo r cutaneous antisepsis. When ultrasound is used, sterile ultrasound techniques are followed requiring sterile gel and sterile probes. TECHNICAL DOCUMENTATION: JOB ID: [id number] 1881 [employer]- All Rights Reserved
[2017-03-07] MEDS ORDERED: BISACODYL 10 MG SUPP.RECT PR PRN (15:46)
[2017-03-07] MEDS ORDERED: MAGNESIUM HYDROXIDE SUSP 30 ML UDCUP PO PRN (15:46)
--- NOTE | 2017-03-07 15:47 | PDOC PROGRESS REPORT ---
Subjective Progress Note for:: 03/07/17 Subjective:: Patient feels much better today in general. He has constipation. Patient denies fever, chills, headache, new focal weakness, chest pain, shortness of breath, abdominal pain, nausea, vomiting. Physical Exam Vital Signs: Temp Pulse Resp BP Pulse Ox 97.4 F 64 18 122/59 L 97 03/07/17 12:09 03/07/17 12:09 03/07/17 12:09 03/07/17 12:09 03/07/17 12:09 Intake & Output 03/06/17 03/07/17 03/08/17 06:59 06:59 06:59 Intake Total 1610 1430 200 Balance 1610 1430 200 Weight 120.3 kg 120.3 kg GENERAL: No acute distress HEENT: Conjunctiva clear, nonicteric, moist mucous membranes, no JVD, midline trachea RESPIRATORY: Clear to auscultation bilaterally, no wheezes, no rhonchi CARDIAC: Regular rate and rhythm, no murmurs/gallops/rubs ABDOMEN: Soft, nondistended, nontender, positive bowel sounds, no rebound, no guarding EXTREMETIES: No edema, cyanosis, clubbing NEUROLOGIC: Alert, oriented to person/place/time, CN's grossly intact, no focal deficits SKIN: Bandage to right foot clean/dry/intact PSYCH: Normal mood, normal affect Results Laboratory Results: 03/07/17 05:23 03/07/17 05:23 03/07/17 03/07/17 05:23 05:23 WBC 7.4 RBC 3.76 L Hgb 9.6 L Hct 29.2 L MCV 78 L MCH 25.6 L MCHC 33.0 RDW 14.2 H Plt Count 357 Seg Neutrophils % 56.7 Lymphocytes % 27.2 Monocytes % 7.6 Eosinophils % 7.4 H Basophils % 1.1 Absolute Neutrophils 4.2 Absolute Lymphocytes 2.0 Absolute Monocytes 0.6 Absolute Eosinophils 0.5 Absolute Basophils 0.1 Sodium 140.2 Potassium 5.4 H Chloride 105 Carbon Dioxide 27 Anion Gap 8 BUN 15 Creatinine 0.89 Est GFR ( Amer) > 60 Est GFR (Non-Af Amer) > 60 Glucose 147 H Calcium 9.1 Impressions: Lower Extremity MRI 03/05/17 00:00 IMPRESSION: Right foot plantar ulcer at the 5th metatarsophalangeal region with surrounding cellulitis and soft tissue abscess as above. Early demineralization of the lateral edge 5th metatarsal distal metaphysis worrisome for early involvement with osteomyelitis Foot X-Ray 03/05/17 08:15 IMPRESSION: Soft tissue wound with no evidence of osteomyelitis. Chest X-Ray 03/05/17 10:43 IMPRESSION: No acute findings Guidance Fluoroscopy 03/07/17 00:00 IMPRESSION: SUCCESSFUL PLACEMENT OF A 5 FR DUAL LUMEN 37 CM PICC IN THE right basilic VEIN. Interventional Vascular Procedure 03/07/17 00:00 IMPRESSION: SUCCESSFUL PLACEMENT OF A 5 FR DUAL LUMEN 37 CM PICC IN THE right basilic VEIN. PICC Line Insertion 03/07/17 00:00 IMPRESSION: SUCCESSFUL PLACEMENT OF A 5 FR DUAL LUMEN 37 CM PICC IN THE right basilic VEIN. Assessment & Plan - Diagnosis (1) Diabetic foot infection Is this a current diagnosis for this admission?: YesPlan: Status post incision and drainage of right foot on 03/05/2017. Wound culture tentatively growing gram-negative rods. Continue the Levaquin and IV clindamycin until further identification and susceptibility. PICC line placed by surgery for possible prolonged IV Abx. (2) Diabetic foot ulcer Qualifiers: Diabetic foot ulcer location: midfoot Diabetes mellitus type: type 2 Laterality: right Non-pressure ulcer stage: unspecified non-pressure ulcer stage Qualified Code(s): E11.621 - Type 2 diabetes mellitus with foot ulcer; L97.509 - Non-pressure chronic ulcer of other part of unspecified foot with unspecified severity Is this a current diagnosis for this admission?: YesPlan: Wound care per surgery. (3) Diabetes Is this a current diagnosis for this admission?: YesPlan: Increase metformin to 750mg twice daily. Continue sliding scale insulin. Hemoglobin A1c 7.5. (4) Coronary artery disease Is this a current diagnosis for this admission?: YesPlan: Aspirin 81 mg daily, Lipitor 20 mg daily. (5) Peripheral vascular disease Is this a current diagnosis for this admission?: YesPlan: Status post remote left first toe amputation. Aspirin, Lipitor. (6) Hyperkalemia Is this a current diagnosis for this admission?: YesPlan: Discontinue KCL. Continue Lasix. - Time Time Spent with patient: 25-34 minutes
--- NOTE | 2017-03-07 16:24 | OPERATIVE REPORT E ---
Operative Report NAME: RICARDO WELLS : 1955 AGE: 61Y DATE OF SURGERY: 03/07/2017 ROOM: 528 PREOPERATIVE DIAGNOSES: 1. POSTDEBRIDEMENT OF RIGHT FOOT ULCER. 2. SOME NECROTIC TISSUE AROUND THE WOUND. POSTOPERATIVE DIAGNOSES: 1. POSTDEBRIDEMENT OF RIGHT FOOT ULCER. 2. SOME NECROTIC TISSUE AROUND THE WOUND. OPERATION: Sharp debridement of necrotic tissue on the surface of the wound and on the lateral aspects. SURGEON: VEENA WILLIAMSON M.D. ANESTHESIA: None. INDICATIONS: This is a 61-year-old diabetic male who underwent debridement and evacuation of pus of the right foot about 2 days ago. Today on examining the wound, there is some necrotic tissue, primarily on the surface and on the sides of the wound. The wound itself roughly measured about 2 cm in diameter. There are still some areas of erythema around the wound, but not as tender as 2 to 3 days ago. There is no fluctuance or crepitus around the wound. DESCRIPTION OF PROCEDURE: With the use of sharp scissors, necrotic tissue on the surface of the wound and the lateral aspect was then debrided. There was no purulent material noted, just some necrotic tissue that were mostly sharply debrided. Following the procedure, saline soaked dressing was used as a wet-to-dry dressing on the wound. The patient also can be transferred out after placement of a PIC line and arrangements for IV antibiotic therapy are made. The patient will also be followed in the wound care center. DICTATING PHYSICIAN: VEENA WILLIAMSON M.D. [id number] PHY#: [id number] ID: [id number] JOB#: [id number] ACCT: [id number] cc:VEENA WILLIAMSON M.D. >
[2017-03-07] MEDS: METFORMIN HCL 500 MG TABLET PO SCH (16:38)
[2017-03-07] MEDS: NORMAL SALINE 10 ML SDV (AFTER EACH USE) IV PRN (16:39)
[2017-03-07] MEDS: DOCUSATE SODIUM 100 MG CAPSULE PO SCH (17:18)
[2017-03-07] MEDS: ATORVASTATIN CALCIUM 20 MG TABLET PO SCH (21:37)
[2017-03-07] MEDS: NORMAL SALINE 10 ML SDV (SCHEDULED) IV SCH (21:37)
[2017-03-08] MEDS: GABAPENTIN 300 MG CAPSULE PO SCH ×3 (05:29→21:40)
[2017-03-08] MEDS: CLINDAMYCIN 600 MG/D5W RTU 50 ML IV SCH (05:29)
[2017-03-08 06:09] LABS: ABSOLUTE BASOPHILS # (AUTO) 0.1 10^3/uL (0.0-0.2); ABSOLUTE EOSINOPHILS # (AUTO) 0.5 10^3/uL (0.0-0.6); ABSOLUTE LYMPHOCYTES (AUTO) 1.8 10^3/uL (0.5-4.7); ABSOLUTE MONOCYTES (AUTO) 0.4 10^3/uL (0.1-1.4); ABSOLUTE NEUT (AUTO) 4.5 10^3/uL (1.7-8.2); BASOPHILS % (AUTO) 1.1 % (0-2); EOSINOPHILS % (AUTO) 7.1 % (0-6); HEMATOCRIT 30.4 % (37.9-51.0); HEMOGLOBIN 9.9 g/dL (13.5-17.0); HGB HCT DIFFERENCE -0.7; LYMPHOCYTES % (AUTO) 24.1 % (13-45); MEAN CORPUSCULAR HEMOGLOBIN 25.7 pg (27.0-33.4); MEAN CORPUSCULAR HGB CONC 32.6 g/dL (32.0-36.0); MEAN CORPUSCULAR VOLUME 79 fl (80-97); MONOCYTES % (AUTO) 5.8 % (3-13); RED BLOOD COUNT 3.86 10^6/uL (4.35-5.55); RED CELL DISTRIBUTION WIDTH 14.3 % (11.5-14.0); SEGMENTED NEUTROPHILS % (AUTO) 61.9 % (42-78); WHITE BLOOD COUNT 7.3 10^3/uL (4.0-10.5)
[2017-03-08 06:27] LABS: ANION GAP 9 (5-19); BLOOD UREA NITROGEN 13 mg/dL (7-20); CALCIUM 9.1 mg/dL (8.4-10.2); CARBON DIOXIDE 26 mmol/L (22-30); CHLORIDE 104 mmol/L (98-107); CREATININE RESULT 0.84 mg/dL (0.52-1.25); GLUCOSE 179 mg/dL (75-110); POTASSIUM 4.7 mmol/L (3.6-5.0); SODIUM 138.9 mmol/L (137-145)
[2017-03-08] MEDS: METFORMIN HCL 500 MG TABLET PO SCH ×2 (07:33→16:08)
[2017-03-08] MEDS: INSULIN LISPRO 100 UNIT/ML 3 ML VIAL SUBCUT PRN ×3 (07:33→17:05)
[2017-03-08] MEDS ORDERED: VANCOMYCIN HCL 0 MG in DEXTROSE 5%-WATER 250 ML IV NR (08:15)
[2017-03-08] MEDS ORDERED: ERTAPENEM SODIUM 1 GM in NORMAL SALINE 50 ML IV SCH ×2 (10:00→12:00)
[2017-03-08] MEDS: FUROSEMIDE 40 MG TABLET PO SCH (10:22)
[2017-03-08] MEDS: ENOXAPARIN SODIUM INJ 40 MG/0.4 ML DISP.SYRIN SUBCUT SCH (10:22)
[2017-03-08] MEDS: ASPIRIN 81 MG TABLET, ENT COATED PO SCH (10:22)
[2017-03-08] MEDS: DOCUSATE SODIUM 100 MG CAPSULE PO SCH ×2 (10:24→18:26)
[2017-03-08] MEDS: NORMAL SALINE 10 ML SDV (SCHEDULED) IV SCH ×2 (10:25→21:40)
[2017-03-08] MEDS: VANCOMYCIN HCL 1,250 MG in DEXTROSE 5%-WATER 250 ML IV SCH ×2 (11:03→18:26)
--- NOTE | 2017-03-08 15:05 | PDOC PROGRESS REPORT ---
Subjective Progress Note for:: 03/08/17 Subjective:: Patient feels much better today in general. Patient denies fever, chills, headache, new focal weakness, chest pain, shortness of breath, abdominal pain, nausea, vomiting. Physical Exam Vital Signs: Temp Pulse Resp BP Pulse Ox 97.4 F 65 18 126/71 H 94 03/08/17 11:19 03/08/17 11:19 03/08/17 11:19 03/08/17 11:19 03/08/17 11:19 Intake & Output 03/07/17 03/08/17 03/09/17 06:59 06:59 06:59 Intake Total 1430 2170 840 Balance 1430 2170 840 Weight 120.3 kg 120.4 kg GENERAL: No acute distress HEENT: Conjunctiva clear, nonicteric, moist mucous membranes, no JVD, midline trachea RESPIRATORY: Clear to auscultation bilaterally, no wheezes, no rhonchi CARDIAC: Regular rate and rhythm, no murmurs/gallops/rubs ABDOMEN: Soft, nondistended, nontender, positive bowel sounds, no rebound, no guarding EXTREMETIES: No edema, cyanosis, clubbing NEUROLOGIC: Alert, oriented to person/place/time, CN's grossly intact, no focal deficits SKIN: Bandage to right foot clean/dry/intact PSYCH: Normal mood, normal affect Results Laboratory Results: 03/08/17 05:38 03/08/17 05:38 03/08/17 03/08/17 05:38 05:38 WBC 7.3 RBC 3.86 L Hgb 9.9 L Hct 30.4 L MCV 79 L MCH 25.7 L MCHC 32.6 RDW 14.3 H Plt Count 370 Seg Neutrophils % 61.9 Lymphocytes % 24.1 Monocytes % 5.8 Eosinophils % 7.1 H Basophils % 1.1 Absolute Neutrophils 4.5 Absolute Lymphocytes 1.8 Absolute Monocytes 0.4 Absolute Eosinophils 0.5 Absolute Basophils 0.1 Sodium 138.9 Potassium 4.7 Chloride 104 Carbon Dioxide 26 Anion Gap 9 BUN 13 Creatinine 0.84 Est GFR ( Amer) > 60 Est GFR (Non-Af Amer) > 60 Glucose 179 H Calcium 9.1 Impressions: Lower Extremity MRI 03/05/17 00:00 IMPRESSION: Right foot plantar ulcer at the 5th metatarsophalangeal region with surrounding cellulitis and soft tissue abscess as above. Early demineralization of the lateral edge 5th metatarsal distal metaphysis worrisome for early involvement with osteomyelitis Foot X-Ray 03/05/17 08:15 IMPRESSION: Soft tissue wound with no evidence of osteomyelitis. Chest X-Ray 03/05/17 10:43 IMPRESSION: No acute findings Guidance Fluoroscopy 03/07/17 00:00 IMPRESSION: SUCCESSFUL PLACEMENT OF A 5 FR DUAL LUMEN 37 CM PICC IN THE right basilic VEIN. Interventional Vascular Procedure 03/07/17 00:00 IMPRESSION: SUCCESSFUL PLACEMENT OF A 5 FR DUAL LUMEN 37 CM PICC IN THE right basilic VEIN. PICC Line Insertion 03/07/17 00:00 IMPRESSION: SUCCESSFUL PLACEMENT OF A 5 FR DUAL LUMEN 37 CM PICC IN THE right basilic VEIN. Assessment & Plan - Diagnosis (1) Diabetic foot infection Is this a current diagnosis for this admission?: YesPlan: Status post incision and drainage of right foot on 03/05/2017. Change IV antibiotics to ertapenem and vancomycin pending further cultures. 03/05/17 09:51 Blood Culture - Preliminary Blood NO GROWTH AFTER 72 HOURS 03/05/17 08:31 Blood Culture - Preliminary Blood NO GROWTH AFTER 72 HOURS 03/05/17 08:10 Gram Stain - Preliminary Foot - Deep Wound Wound Culture - Preliminary Gram Negative Rods Gram Positive Cocci Clusters Group B Beta Streptococcus PICC line placed by surgery for prolonged IV Abx. Patient will need 6 IV antibiotic therapy secondary to underlying osteomyelitis. (2) Diabetic foot ulcer Qualifiers: Diabetic foot ulcer location: midfoot Diabetes mellitus type: type 2 Laterality: right Non-pressure ulcer stage: unspecified non-pressure ulcer stage Qualified Code(s): E11.621 - Type 2 diabetes mellitus with foot ulcer; L97.509 - Non-pressure chronic ulcer of other part of unspecified foot with unspecified severity Is this a current diagnosis for this admission?: YesPlan: Wound care per surgery. Patient will need to follow-up at the wound clinic after discharge. (3) Diabetes Is this a current diagnosis for this admission?: YesPlan: Increase metformin to 1000mg twice daily. Continue sliding scale insulin. Hemoglobin A1c 7.5. (4) Coronary artery disease Is this a current diagnosis for this admission?: YesPlan: Aspirin 81 mg daily, Lipitor 20 mg daily. (5) Peripheral vascular disease Is this a current diagnosis for this admission?: YesPlan: Status post remote left first toe amputation. Aspirin, Lipitor. (6) Hyperkalemia Is this a current diagnosis for this admission?: Yes - Time Time Spent with patient: 25-34 minutes Anticipated discharge: Home with Homehealth
[2017-03-08] MEDS: ERTAPENEM SODIUM 1 GM in NORMAL SALINE 50 ML IV SCH (16:08)
[2017-03-08] MEDS: ATORVASTATIN CALCIUM 20 MG TABLET PO SCH (21:40)
[2017-03-09] MEDS: VANCOMYCIN HCL 1,250 MG in DEXTROSE 5%-WATER 250 ML IV SCH ×3 (01:53→17:24)
[2017-03-09] MEDS: GABAPENTIN 300 MG CAPSULE PO SCH ×3 (05:49→21:46)
[2017-03-09] MEDS: METFORMIN HCL 500 MG TABLET PO SCH ×2 (07:31→16:25)
[2017-03-09] MEDS: INSULIN LISPRO 100 UNIT/ML 3 ML VIAL SUBCUT PRN ×2 (07:31→16:24)
[2017-03-09] MEDS: ENOXAPARIN SODIUM INJ 40 MG/0.4 ML DISP.SYRIN SUBCUT SCH (09:32)
[2017-03-09] MEDS: ASPIRIN 81 MG TABLET, ENT COATED PO SCH (09:33)
[2017-03-09] MEDS: FUROSEMIDE 40 MG TABLET PO SCH (09:33)
[2017-03-09] MEDS: NORMAL SALINE 10 ML SDV (SCHEDULED) IV SCH ×2 (09:33→21:46)
[2017-03-09] MEDS: DOCUSATE SODIUM 100 MG CAPSULE PO SCH ×2 (09:35→17:24)
[2017-03-09 10:08] LABS: CREATININE RESULT 0.85 mg/dL (0.52-1.25)
--- NOTE | 2017-03-09 14:19 | OPERATIVE REPORT E ---
Operative Report NAME: RICARDO WELLS : 1955 AGE: 61Y DATE OF SURGERY: ROOM: 528 PREOPERATIVE DIAGNOSIS: Post I and D of MRSA abscess of the right foot. POSTOPERATIVE DIAGNOSIS: Post I and D of MRSA abscess of the right foot with some tissue necrosis along the I and D site and occluded tunnel between the bottom of the foot and anterior aspect. PROCEDURES DONE: 1. Debridement of necrotic tissue on right foot dorsum. 2. Placement of Iodoform gauze to the tunnel between the two wounds and bottom of the foot and anterior lateral debridement site. SURGEON: VEENA WILLIAMSON M.D. OPERATION: The wound in the dorsum of the right foot opposite 5th metatarsal area, was seen to have some necrotic tissue. This was then sharply debrided using scissors. The tunnel between the bottom of the foot and the dorsum of the foot wound was then reopened by putting the forceps through and eventually putting 2 layers of 1/4-inch Iodoform gauze. The upper wound, or the dorsal wound, which roughly measures about 2 cm, was impacted 1/4-inch Iodoform gauze. Sterile dressings placed over the wounds and wrapped with a Linda. This can be changed tomorrow, just leaving for about 24 hours. He will eventually need wound VAC but at the same time, need IV antibiotic therapy for MRSA. DICTATING PHYSICIAN: VEENA WILLIAMSON M.D. [id number] PHY#: [id number] ID: [id number] JOB#: [id number] ACCT: [id number] cc:VEENA WILLIAMSON M.D. >
[2017-03-09] MEDS: ERTAPENEM SODIUM 1 GM in NORMAL SALINE 50 ML IV SCH (16:24)
[2017-03-09] MEDS: NORMAL SALINE 10 ML SDV (AFTER EACH USE) IV PRN (16:26)
[2017-03-09] MEDS ORDERED: PHARMACY COMMUNICATION ORDER MC NR (17:15)
--- NOTE | 2017-03-09 17:16 | PDOC PROGRESS REPORT ---
Subjective Progress Note for:: 03/09/17 Subjective:: Patient feels much better today in general. Patient denies fever, chills, headache, new focal weakness, chest pain, shortness of breath, abdominal pain, nausea, vomiting. Physical Exam Vital Signs: Temp Pulse Resp BP Pulse Ox 97.6 F 75 18 117/61 93 03/09/17 15:27 03/09/17 15:27 03/09/17 15:27 03/09/17 15:27 03/09/17 15:27 Intake & Output 03/08/17 03/09/17 03/10/17 06:59 06:59 06:59 Intake Total 2170 2525 1200 Balance 2170 2525 1200 Weight 120.4 kg 120.4 kg GENERAL: No acute distress HEENT: Conjunctiva clear, nonicteric, moist mucous membranes, no JVD, midline trachea RESPIRATORY: Clear to auscultation bilaterally, no wheezes, no rhonchi CARDIAC: Regular rate and rhythm, no murmurs/gallops/rubs ABDOMEN: Soft, nondistended, nontender, positive bowel sounds, no rebound, no guarding EXTREMETIES: No edema, cyanosis, clubbing NEUROLOGIC: Alert, oriented to person/place/time, CN's grossly intact, no focal deficits SKIN: Bandage to right foot clean/dry/intact PSYCH: Normal mood, normal affect Results Laboratory Results: 03/08/17 05:38 03/09/17 09:45 03/09/17 09:45 Creatinine 0.85 Est GFR ( Amer) > 60 Est GFR (Non-Af Amer) > 60 Impressions: Lower Extremity MRI 03/05/17 00:00 IMPRESSION: Right foot plantar ulcer at the 5th metatarsophalangeal region with surrounding cellulitis and soft tissue abscess as above. Early demineralization of the lateral edge 5th metatarsal distal metaphysis worrisome for early involvement with osteomyelitis Foot X-Ray 03/05/17 08:15 IMPRESSION: Soft tissue wound with no evidence of osteomyelitis. Chest X-Ray 03/05/17 10:43 IMPRESSION: No acute findings Guidance Fluoroscopy 03/07/17 00:00 IMPRESSION: SUCCESSFUL PLACEMENT OF A 5 FR DUAL LUMEN 37 CM PICC IN THE right basilic VEIN. Interventional Vascular Procedure 03/07/17 00:00 IMPRESSION: SUCCESSFUL PLACEMENT OF A 5 FR DUAL LUMEN 37 CM PICC IN THE right basilic VEIN. PICC Line Insertion 03/07/17 00:00 IMPRESSION: SUCCESSFUL PLACEMENT OF A 5 FR DUAL LUMEN 37 CM PICC IN THE right basilic VEIN. Assessment & Plan - Diagnosis (1) Diabetic foot infection Is this a current diagnosis for this admission?: YesPlan: Status post incision and drainage of right foot on 03/05/2017. Continue ertapenem and vancomycin based on wound culture and sensitivity. 03/05/17 09:51 Blood Culture - Preliminary Blood NO GROWTH AFTER 72 HOURS 03/05/17 08:31 Blood Culture - Preliminary Blood NO GROWTH AFTER 72 HOURS 03/05/17 08:10 Gram Stain - Preliminary Foot - Deep Wound Wound Culture - Preliminary Gram Negative Rods Gram Positive Cocci Clusters Group B Beta Streptococcus PICC line placed by surgery for prolonged IV Abx. Patient will need 6 weeks IV antibiotic therapy secondary to underlying osteomyelitis. Patient is stable for discharge once home health services and home infusion can be arranged. (2) Diabetic foot ulcer Qualifiers: Diabetic foot ulcer location: midfoot Diabetes mellitus type: type 2 Laterality: right Non-pressure ulcer stage: unspecified non-pressure ulcer stage Qualified Code(s): E11.621 - Type 2 diabetes mellitus with foot ulcer; L97.509 - Non-pressure chronic ulcer of other part of unspecified foot with unspecified severity Is this a current diagnosis for this admission?: YesPlan: Wound care per surgery. Patient will need to follow-up at the wound clinic after discharge. (3) Diabetes Is this a current diagnosis for this admission?: YesPlan: metformin 1000mg twice daily. Continue sliding scale insulin. Hemoglobin A1c 7.5. (4) Coronary artery disease Is this a current diagnosis for this admission?: YesPlan: Aspirin 81 mg daily, Lipitor 20 mg daily. (5) Peripheral vascular disease Is this a current diagnosis for this admission?: YesPlan: Status post remote left first toe amputation. Aspirin, Lipitor. This will likely hinder patient's wound healing. (6) Hyperkalemia Is this a current diagnosis for this admission?: Yes - Time Time Spent with patient: 25-34 minutes
[2017-03-09] MEDS: ATORVASTATIN CALCIUM 20 MG TABLET PO SCH (21:46)
[2017-03-10] MEDS: VANCOMYCIN HCL 1,250 MG in DEXTROSE 5%-WATER 250 ML IV SCH (01:09)
[2017-03-10] MEDS: GABAPENTIN 300 MG CAPSULE PO SCH ×2 (05:46→13:33)
[2017-03-10] MEDS: METFORMIN HCL 500 MG TABLET PO SCH (07:41)
[2017-03-10] MEDS: ENOXAPARIN SODIUM INJ 40 MG/0.4 ML DISP.SYRIN SUBCUT SCH (09:35)
[2017-03-10] MEDS: FUROSEMIDE 40 MG TABLET PO SCH (09:37)
[2017-03-10] MEDS: DOCUSATE SODIUM 100 MG CAPSULE PO SCH (09:37)
[2017-03-10] MEDS: ASPIRIN 81 MG TABLET, ENT COATED PO SCH (09:38)
[2017-03-10] MEDS: NORMAL SALINE 10 ML SDV (SCHEDULED) IV SCH (09:38)
--- NOTE | 2017-03-10 09:49 | PDOC DISCHARGE SUMMARY ---
General - Admit/Disc Date/PCP Admission Date/Primary Care Provider: 03/05/17 10:41 Discharge Date: 03/10/17 - Discharge Diagnosis (1) Diabetic foot infection Is this a current diagnosis for this admission?: Yes (2) Diabetic foot ulcer Is this a current diagnosis for this admission?: Yes (3) Diabetes Is this a current diagnosis for this admission?: Yes (4) Coronary artery disease Is this a current diagnosis for this admission?: Yes (5) Peripheral vascular disease Is this a current diagnosis for this admission?: Yes (6) Hyperkalemia Is this a current diagnosis for this admission?: Yes - Additional Information Resuscitation Status: Full Code Discharge Diet: Cardiac, Diabetic Discharge Activity: Activity As Tolerated Home Medications: Furosemide [Lasix] 40 mg PO DAILY 03/05/17 Gabapentin [Neurontin 300 mg Capsule] 300 mg PO Q8 03/05/17 Aspirin [Ecotrin 81 mg EC Tablet] 81 mg PO DAILY tabec 03/10/17 Atorvastatin Calcium [Lipitor 20 mg Tablet] 20 mg PO QHS #30 tablet 03/10/17 Ertapenem Sodium [Invanz Inj 1 gm Vial] 1 gm IV DAILY@1500 42 Days 03/10/17 Metformin HCl [Glucophage] 1,000 mg PO BID #60 tablet 03/10/17 Vancomycin/0.9 % Sod Chloride [Vancomycin 1 G/200Ml-0.9% NaCl] 2 gm IV Q12H 42 Days 03/10/17 History of Present Illness Patient complains of: Right foot pain and swelling History of Present Illness: RICARDO WELLS is a 61 year old male with past medical history of diabetes mellitus, coronary artery disease status post coronary artery bypass graft, peripheral vascular disease status post left first toe amputation presents with 4 day history of increasing right foot swelling and now a new wound on dorsal aspect of lateral right foot with drainage. Patient has had a one-year history of diabetic foot ulcer on the lateral plantar aspect of the right first foot that he has provided local wound care to. He states that he is on oral hypoglycemics for diabetes however he does not recall the names of them top of his head. I do not see a record of medications being filled in the electronic medical record, however some pharmacies do not SYNC with our computer. Hospital Course Hospital Course: Patient has a one-year history of diabetic foot ulcer on the plantar surface of his right foot. Over the past week prior to admission he had increased swelling and redness of the right foot and subsequently developed a draining wound on the dorsal aspect of the right foot. Imaging of the extremity showed deep space fluid collection. Patient was admitted to the hospital and surgery was consulted. He was placed on broad-spectrum IV antibiotic coverage. He underwent incision and drainage. He had ongoing local wound care and surgical follow-up. He will need home health services for ongoing dressing changes after discharge. He is going to be referred to the wound clinic for further management after discharge. Imaging also showed underlying osteomyelitis the patient was recommended by surgery to have 6 weeks IV antibiotic therapy. Wound culture grew Morganella species and MRSA and based on susceptibility profile patient is discharged on 6 weeks of IV ertapenem and IV vancomycin. PICC line was placed during this admission for prolonged IV antibiotic therapy. PICC line will need to be discontinued upon last dose of IV antibiotics. With regard to patient's diabetes his hemoglobin A1c was slightly elevated and he was hyperglycemic during this admission. His metformin was increased to 1000 mg twice daily. He will need to follow-up with his primary care provider at [facility] as soon as possible. Patient has a history of peripheral vascular disease secondary to diabetes mellitus. He has remotely had a left first toe amputation. I would imagine peripheral vascular disease is contributing to his ongoing right foot issues and I am concerned that this may impair his ability to heal. The possibility of amputation has been discussed with the patient and he would prefer to try and salvage the foot at this time with conservative management. As mentioned above we will have him follow-up at wound clinic, continue local wound care and antibiotic therapy. Patient has been placed on aspirin therapy and statin therapy. Patient has history of coronary artery disease and coronary artery bypass graft. He has been placed on aspirin and statin therapy. He was asymptomatic from this standpoint. Physical Exam Vital Signs: Temp Pulse Resp BP Pulse Ox 98.5 F 78 18 138/68 H 96 03/10/17 07:30 03/10/17 07:30 03/10/17 07:30 03/10/17 07:30 03/10/17 07:30 Intake & Output 03/09/17 03/10/17 03/11/17 06:59 06:59 06:59 Intake Total 2525 2450 Balance 2525 2450 Weight 120.4 kg 120.4 kg GENERAL: No acute distress HEENT: Conjunctiva clear, nonicteric, moist mucous membranes, no JVD, midline trachea RESPIRATORY: Clear to auscultation bilaterally, no wheezes, no rhonchi CARDIAC: Regular rate and rhythm, no murmurs/gallops/rubs ABDOMEN: Soft, nondistended, nontender, positive bowel sounds, no rebound, no guarding EXTREMETIES: No edema, cyanosis, clubbing NEUROLOGIC: Alert, oriented to person/place/time, CN's grossly intact, no focal deficits SKIN: Dressing clean/dry/intact to right foot PSYCH: Normal mood, normal affect Results Laboratory Results: 03/08/17 05:38 03/09/17 09:45 03/09/17 09:45 Creatinine 0.85 Est GFR ( Amer) > 60 Est GFR (Non-Af Amer) > 60 Labs- Last Values WBC 7.3 10^3/uL (4.0-10.5) 03/08/17 05:38 RBC 3.86 10^6/uL (4.35-5.55) L 03/08/17 05:38 Hgb 9.9 g/dL (13.5-17.0) L 03/08/17 05:38 Hct 30.4 % (37.9-51.0) L 03/08/17 05:38 MCV 79 fl (80-97) L 03/08/17 05:38 MCH 25.7 pg (27.0-33.4) L 03/08/17 05:38 MCHC 32.6 g/dL (32.0-36.0) 03/08/17 05:38 RDW 14.3 % (11.5-14.0) H 03/08/17 05:38 Plt Count 370 10^3/uL (150-450) 03/08/17 05:38 Seg Neutrophils % 61.9 % (42-78) 03/08/17 05:38 Lymphocytes % 24.1 % (13-45) 03/08/17 05:38 Monocytes % 5.8 % (3-13) 03/08/17 05:38 Eosinophils % 7.1 % (0-6) H 03/08/17 05:38 Basophils % 1.1 % (0-2) 03/08/17 05:38 Absolute Neutrophils 4.5 10^3/uL (1.7-8.2) 03/08/17 05:38 Absolute Lymphocytes 1.8 10^3/uL (0.5-4.7) 03/08/17 05:38 Absolute Monocytes 0.4 10^3/uL (0.1-1.4) 03/08/17 05:38 Absolute Eosinophils 0.5 10^3/uL (0.0-0.6) 03/08/17 05:38 Absolute Basophils 0.1 10^3/uL (0.0-0.2) 03/08/17 05:38 Retic Count (auto) 1.36 % (0.66-2.85) 03/05/17 08:31 Absolute Retic 0.052 10^6/uL (0.028-0.122) 03/05/17 08:31 PT 14.4 SEC (11.4-15.4) 03/05/17 08:31 INR 1.05 03/05/17 08:31 APTT 45.7 SEC (23.5-35.8) H 03/05/17 08:31 Sodium 138.9 mmol/L (137-145) 03/08/17 05:38 Potassium 4.7 mmol/L (3.6-5.0) 03/08/17 05:38 Chloride 104 mmol/L (98-107) 03/08/17 05:38 Carbon Dioxide 26 mmol/L (22-30) 03/08/17 05:38 Anion Gap 9 (5-19) 03/08/17 05:38 BUN 13 mg/dL (7-20) 03/08/17 05:38 Creatinine 0.85 mg/dL (0.52-1.25) 03/09/17 09:45 Est GFR ( Amer) > 60 (>60) 03/09/17 09:45 Est GFR (Non-Af Amer) > 60 (>60) 03/09/17 09:45 Glucose 179 mg/dL (75-110) H 03/08/17 05:38 POC Glucose 163 mg/dL (70-110) H 03/10/17 05:47 Hemoglobin A1c % 7.5 % (4.7-6.0) H 03/05/17 08:31 Calcium 9.1 mg/dL (8.4-10.2) 03/08/17 05:38 Iron 36.0 ug/dL (49-181) L 03/05/17 08:31 TIBC 273 ug/dL (250-450) 03/05/17 08:31 % Saturation 13 % 03/05/17 08:31 Transferrin 202 mg/dL (200-370) 03/05/17 08:31 Ferritin 110.00 ng/mL (17.9-464.0) 03/05/17 08:31 Total Bilirubin 0.6 mg/dL (0.2-1.3) 03/05/17 08:31 Direct Bilirubin 0.3 mg/dL (0.0-0.4) 03/05/17 08:31 Indirect Bilirubin Not Reportable 03/05/17 08:31 Neonat Total Bilirubin Not Reportable 03/05/17 08:31 AST 20 U/L (17-59) 03/05/17 08:31 ALT 25 U/L (21-72) 03/05/17 08:31 Alkaline Phosphatase 58 U/L (38-126) 03/05/17 08:31 Total Protein 7.1 g/dL (6.3-8.2) 03/05/17 08:31 Albumin 3.5 g/dL (3.5-5.0) 03/05/17 08:31 Triglycerides 116 mg/dL (<150) 03/06/17 03:49 Cholesterol 152.86 mg/dL (0-200) 03/06/17 03:49 LDL Cholesterol Direct 102 mg/dL (<100) H 03/06/17 03:49 VLDL Cholesterol 23.0 mg/dL (10-31) 03/06/17 03:49 HDL Cholesterol 21 mg/dL (>40) L 03/06/17 03:49 Vitamin B12 291.0 pg/mL (239-931) 03/05/17 08:31 Folate 9.49 ng/mL (>2.76) 03/05/17 08:31 Time Trough Drawn 0945 03/09/17 09:45 Vancomycin Trough 11.8 ug/mL (5.0-20.0) 03/09/17 09:45 Impressions: Lower Extremity MRI 03/05/17 00:00 IMPRESSION: Right foot plantar ulcer at the 5th metatarsophalangeal region with surrounding cellulitis and soft tissue abscess as above. Early demineralization of the lateral edge 5th metatarsal distal metaphysis worrisome for early involvement with osteomyelitis Foot X-Ray 03/05/17 08:15 IMPRESSION: Soft tissue wound with no evidence of osteomyelitis. Chest X-Ray 03/05/17 10:43 IMPRESSION: No acute findings Guidance Fluoroscopy 03/07/17 00:00 IMPRESSION: SUCCESSFUL PLACEMENT OF A 5 FR DUAL LUMEN 37 CM PICC IN THE right basilic VEIN. Interventional Vascular Procedure 03/07/17 00:00 IMPRESSION: SUCCESSFUL PLACEMENT OF A 5 FR DUAL LUMEN 37 CM PICC IN THE right basilic VEIN. PICC Line Insertion 03/07/17 00:00 IMPRESSION: SUCCESSFUL PLACEMENT OF A 5 FR DUAL LUMEN 37 CM PICC IN THE right basilic VEIN. Qualifiers PATEINT BEING DISCHARGED WITH ANY OF THE FOLLOWING DIAGNOSIS?: No Plan Time Spent: Less than 30 Minutes
[2017-03-10] MEDS ORDERED: VANCOMYCIN HCL 2,000 MG in DEXTROSE 5%-WATER 500 ML IV SCH (10:00)
[2017-03-10] MEDS: INSULIN LISPRO 100 UNIT/ML 3 ML VIAL SUBCUT PRN (11:33)
[2017-03-10] MEDS: NORMAL SALINE 10 ML SDV (AFTER EACH USE) IV PRN (12:55)
[2017-03-10] MEDS: ERTAPENEM SODIUM 1 GM in NORMAL SALINE 50 ML IV SCH (14:02)
[2017-03-10 14:33] VITALS: BP 121/60
== END 2017-03-10 15:01 | disposition home health service (06) | DRG 623 ==
LOC: ER 07:42 → EH 10:41 → UNDOADMIN 11:20 → EH 11:20 → 5 14:15
PROVIDERS: ADMIT Family Medicine; ATTEND Family Medicine
PROC: 0JBQ0ZZ Excision of Right Foot Subcutaneous Tissue and Fascia, Open Approach (ICD-10-PCS; principal; 2017-03-05)
PROC: 0JBQ0ZZ Excision of Right Foot Subcutaneous Tissue and Fascia, Open Approach (ICD-10-PCS; 2017-03-07)
PROC: 02HV33Z Insertion of Infusion Device into Superior Vena Cava, Percutaneous Approach (ICD-10-PCS; 2017-03-07)
PROC: B5181ZA Fluoroscopy of Superior Vena Cava using Low Osmolar Contrast, Guidance (ICD-10-PCS; 2017-03-07)
PROC: B548ZZA Ultrasonography of Superior Vena Cava, Guidance (ICD-10-PCS; 2017-03-07)
PROC: 0J9Q0ZZ Drainage of Right Foot Subcutaneous Tissue and Fascia, Open Approach (ICD-10-PCS; 2017-03-09)
DX: E11.69 Type 2 diabetes mellitus with other specified complication (principal); M86.171 Other acute osteomyelitis, right ankle and foot; L02.611 Cutaneous abscess of right foot; E11.621 Type 2 diabetes mellitus with foot ulcer; L97.519 Non-pressure chronic ulcer of other part of right foot with unspecified severity; E11.65 Type 2 diabetes mellitus with hyperglycemia; B96.89 Other specified bacterial agents as the cause of diseases classified elsewhere; B95.62 Methicillin resistant Staphylococcus aureus infection as the cause of diseases classified elsewhere; E87.5 Hyperkalemia; I25.10 Atherosclerotic heart disease of native coronary artery without angina pectoris; I10 Essential (primary) hypertension; I73.9 Peripheral vascular disease, unspecified; M19.90 Unspecified osteoarthritis, unspecified site; Z79.82 Long term (current) use of aspirin; Z79.899 Other long term (current) drug therapy; Z79.84 Long term (current) use of oral hypoglycemic drugs; Z95.1 Presence of aortocoronary bypass graft; Z89.422 Acquired absence of other left toe(s)
CPT/HCPCS: 36415; 36569; 71010; 76937; 77001; 80048; 80053; 80061; 80202; 82565; 82607; 82728; 82746; 82962; 83036; 83540; 83550; 84466; 85025; 85045; 85610; 85730; 87040; 87070; 87077; 87186; 87205; 93005; 93010; 96365; 96368; 99285; A6266; J1335; J1642; J1650; J1815; J1956; J3370; J3490; J7060

== ENCOUNTER → 2017-04-01 | Outpatient (CLI) | payer MEDICAID ==
--- NOTE | 2017-04-01 14:44 | XCELERA REPORT ---
[address] [address] Lower Extremity Arterial Evaluation Name: RICARDO WELLS Age: 61 yrs Gender: Male : 1955 Patient Status: Outpatient Patient Location: Study Date: 04/01/2017 09:49 AM Procedure: A color flow and duplex scan of the lower extremity arteries was performed bilaterally with velocity and waveform anaylsis. Ankle brachial indicies performed. Reason For Study: ULCER Ordering Physician: RANDY ROBERTS Performed By: Anastasiya Saldaña Measurements and Calculations Right Left MATRIX DRIER TENDER PSV 118.2 131.8 cm/sec Prox PFA PSV -71.7 -59.3 cm/sec Prox SFA PSV 100.9 85.0 cm/sec Mid SFA PSV -93.2 -98.2 cm/sec Dist SFA PSV -252.7 -63.2 cm/sec Prox Pop A PSV 71.7 90.8 cm/sec Dist JOSE DAVID PSV 73.0 89.2 cm/sec Prox ACCESS DATABASE DEVELOPER PSV 30.1 cm/sec Mid ACCESS DATABASE DEVELOPER PSV 57.6 cm/sec Dist ACCESS DATABASE DEVELOPER PSV 33.2 80.9 cm/sec Raul Pedis PSV 101.5 39.5 cm/sec Right Side Arterial Evaluation Normal velocity and triphasic waveforms noted from the Common Femoral artery to the Anterior Tibial artery. Biphasic with reasonably preserved waveform in the Posterior Tibial artery . 0-19% stenosis at the Posterior Tibial artery. Ankle Brachial index is 1.1. Left Side Arterial Evaluation Normal velocity and triphasic waveforms noted from the Common Femoral artery to the infrageniculate vessels. 0 % stenosis noted. Ankle Brachial index is 1.2. Interpretation Summary Mild hemodynamically significant lesions in the right lower extremity only, on duplex imaging, at rest. No hemodynamically significant lesions in the left lower extremity only, on duplex imaging, at rest. : RANDY ROBERTS > Joe Ro
== END ==
LOC: SP 09:22
PROVIDERS: ATTEND Nurse Practitioner Family
DX: L97.512 Non-pressure chronic ulcer of other part of right foot with fat layer exposed (principal)
CPT/HCPCS: 93922; 93925

== ENCOUNTER 2017-05-06 15:15 | Day surgery (SDC) | payer MEDICAID ==
--- NOTE | 2017-05-06 16:47 | PDOC DISCHARGE SUMMARY ---
Discharge Summary (SDC) - Discharge Final Diagnosis: Colon polyps Condition: Stable Treatment or Instructions: none Referrals: MILADIS JACKSON MD [Primary Care Provider] - Discharge Diet: As Tolerated Discharge Activity: Activity As Tolerated Home Care Assistance: None Needed Report the Following to Your Physician Immediately: Shortness of Breath, Nausea , Vomiting, Warmth
[2017-05-06 17:02] VITALS: BP 143/87
--- NOTE | 2017-05-08 12:00 | OPERATIVE REPORT E ---
Operative Report NAME: RICARDO WELLS : 1955 AGE: 61Y DATE OF SURGERY: 05/06/2017 ROOM: PREOPERATIVE DIAGNOSIS: Colon cancer screening. POSTOPERATIVE DIAGNOSIS: Polyps in the transverse colon. OPERATION: Colonoscopy with polypectomy. SURGEON: JEYSON MORALES M.D. MEDICATIONS: The patient chose not to receive conscious sedation. TISSUE REMOVED OR ALTERED: Colon polyps. PROCEDURE: After informed consent obtained from patient, the patient was placed in the left lateral position. The colonoscopy was inserted into the rectum and advanced to the cecum. The appendiceal orifice and terminal ileum were both identified. Cecal mucosa was normal. The ascending, descending, sigmoid colon, and the rectum were normal except for internal hemorrhoids. Two 5 to 6 mm polyps were removed from the transverse colon with the hot polypectomy snare. He tolerated the procedure well. PLAN: Await pathology. Follow-up colonoscopy in 5 years. DICTATING PHYSICIAN: JEYSON MORALES M.D. [id number] PHY#: [id number] ID: [id number] JOB#: [id number] ACCT: [id number] cc:JEYSON MORALES M.D. >
== END 2017-05-06 17:10 | disposition home or self-care (01) ==
LOC: END 15:15
PROVIDERS: ATTEND Internal Medicine Gastroenterology
PROC: 0DBL8ZX Excision of Transverse Colon, Via Natural or Artificial Opening Endoscopic, Diagnostic (ICD-10-PCS; principal; 2017-05-06 15:30)
DX: K64.8 Other hemorrhoids (principal); D12.3 Benign neoplasm of transverse colon; D64.9 Anemia, unspecified; E11.9 Type 2 diabetes mellitus without complications; I51.9 Heart disease, unspecified; Z79.84 Long term (current) use of oral hypoglycemic drugs; Z87.891 Personal history of nicotine dependence; Z86.14 Personal history of Methicillin resistant Staphylococcus aureus infection
CPT/HCPCS: 45385; 82962; 88305

== ENCOUNTER → 2017-05-19 | Outpatient (CLI) | payer MEDICAID ==
[2017-05-19 11:13] LABS: ABSOLUTE BASOPHILS # (AUTO) 0.1 10^3/uL (0.0-0.2); ABSOLUTE EOSINOPHILS # (AUTO) 0.5 10^3/uL (0.0-0.6); ABSOLUTE LYMPHOCYTES (AUTO) 1.8 10^3/uL (0.5-4.7); ABSOLUTE MONOCYTES (AUTO) 0.4 10^3/uL (0.1-1.4); ABSOLUTE NEUT (AUTO) 3.8 10^3/uL (1.7-8.2); BASOPHILS % (AUTO) 1.2 % (0-2); EOSINOPHILS % (AUTO) 6.9 % (0-6); HEMATOCRIT 31.4 % (37.9-51.0); HEMOGLOBIN 10.3 g/dL (13.5-17.0); HGB HCT DIFFERENCE -0.5; LYMPHOCYTES % (AUTO) 27.9 % (13-45); MEAN CORPUSCULAR HEMOGLOBIN 25.8 pg (27.0-33.4); MEAN CORPUSCULAR HGB CONC 32.8 g/dL (32.0-36.0); MEAN CORPUSCULAR VOLUME 79 fl (80-97); MONOCYTES % (AUTO) 6.5 % (3-13); RED BLOOD COUNT 3.99 10^6/uL (4.35-5.55); RED CELL DISTRIBUTION WIDTH 17.9 % (11.5-14.0); SEGMENTED NEUTROPHILS % (AUTO) 57.5 % (42-78); WHITE BLOOD COUNT 6.5 10^3/uL (4.0-10.5)
[2017-05-19 11:42] LABS: ALANINE AMINOTRANSFERASE 41 U/L (21-72); ALBUMIN 4.3 g/dL (3.5-5.0); ALKALINE PHOSPHATASE 60 U/L (38-126); ANION GAP 14 (5-19); ASPARTATE AMINO TRANSFERASE 39 U/L (17-59); BILIRUBIN,DIRECT 0.4 mg/dL (0.0-0.4); BILIRUBIN,TOTAL 0.6 mg/dL (0.2-1.3); BLOOD UREA NITROGEN 24 mg/dL (7-20); CALCIUM 10.4 mg/dL (8.4-10.2); CARBON DIOXIDE 24 mmol/L (22-30); CHLORIDE 103 mmol/L (98-107); CREATININE RESULT 0.98 mg/dL (0.52-1.25); GLUCOSE 163 mg/dL (75-110); POTASSIUM 4.9 mmol/L (3.6-5.0); SODIUM 140.7 mmol/L (137-145); TOTAL PROTEIN 7.4 g/dL (6.3-8.2)
[2017-05-19 11:52] LABS: C-REACTIVE PROTEIN < 5.0 mg/L (<10.0)
[2017-05-19 12:10] LABS: ERYTHROCYTE SEDIMENTATION RATE 16 mm/hr (0-20)
--- NOTE | 2017-05-19 12:42 | RADIOLOGY REPORT (SQ) ---
EXAM DESCRIPTION: FOOT RIGHT COMPLETE COMPLETED DATE/TIME: 05/19/2017 11:07 am REASON FOR STUDY: NON-PRS CHRONIC ULCER OTH PRT RIGHT FOOT W FAT LAYER EXPOSED (L97.512) L97.512 NO N-PRS CHRONIC ULCER OTH PRT RIGHT FOOT W FAT LAYER COMPARISON: 03/05/2017 NUMBER OF VIEWS: Two views. TECHNIQUE: AP and lateral radiographic images acquired of the right foot. LIMITATIONS: None. FINDINGS: MINERALIZATION: Normal. BONES: No fracture or dislocation. No evidence of osteomyelitis. JOINTS: Degenerative joint changes seen in the 1st metatarsal-phalangeal joint and in the 1st interph alangeal joint. SOFT TISSUES: No soft tissue swelling. No foreign body. OTHER: No other significant finding. IMPRESSION: Degenerative joint disease. No evidence of osteomyelitis. TECHNICAL DOCUMENTATION: JOB ID: [id number] [employer]- All Rights Reserved
== END ==
LOC: RAD 10:14
PROVIDERS: ATTEND Nurse Practitioner Family
DX: L97.512 Non-pressure chronic ulcer of other part of right foot with fat layer exposed (principal); M19.071 Primary osteoarthritis, right ankle and foot
CPT/HCPCS: 36415; 80053; 83036; 85025; 85652; 86140

== ENCOUNTER 2017-06-24 12:34 | Day surgery (SDC) | payer MEDICAID ==
[2017-06-17 09:39] LABS: HEMATOCRIT 31.7 % (37.9-51.0); HEMOGLOBIN 10.7 g/dL (13.5-17.0); HGB HCT DIFFERENCE 0.4; MEAN CORPUSCULAR HEMOGLOBIN 26.6 pg (27.0-33.4); MEAN CORPUSCULAR HGB CONC 33.7 g/dL (32.0-36.0); MEAN CORPUSCULAR VOLUME 79 fl (80-97); RED BLOOD COUNT 4.02 10^6/uL (4.35-5.55); RED CELL DISTRIBUTION WIDTH 16.4 % (11.5-14.0)
[2017-06-17 10:03] LABS: BLOOD UREA NITROGEN 15 mg/dL (7-20); CALCIUM 9.9 mg/dL (8.4-10.2); CREATININE RESULT 0.91 mg/dL (0.52-1.25); GLUCOSE 235 mg/dL (75-110)
[2017-06-17 10:04] LABS: ALANINE AMINOTRANSFERASE 42 U/L (21-72); ALBUMIN 4.3 g/dL (3.5-5.0); ALKALINE PHOSPHATASE 53 U/L (38-126); ANION GAP 14 (5-19); ASPARTATE AMINO TRANSFERASE 27 U/L (17-59); BILIRUBIN,DIRECT 0.4 mg/dL (0.0-0.4); BILIRUBIN,TOTAL 0.5 mg/dL (0.2-1.3); CARBON DIOXIDE 25 mmol/L (22-30); CHLORIDE 103 mmol/L (98-107); POTASSIUM 4.8 mmol/L (3.6-5.0); SODIUM 141.9 mmol/L (137-145); TOTAL PROTEIN 7.5 g/dL (6.3-8.2)
--- NOTE | 2017-06-17 13:20 | EKG REPORT ---
SEVERITY:- ABNORMAL ECG - SINUS RHYTHM CONSIDER ANTEROSEPTAL INFARCT NONSPECIFIC ST-T CHANGES LATERAL LEADS. : Confirmed by: Louie Muhammad MD 17-Jun-2017 13:19:03
[~2017-06-24 12:34] MED LIST: ACETAMINOPHEN 325 MG TABLET PO PRN; DEXAMETHASONE SOD PHOSPHATE INJ 4 MG/1 ML VIAL ONE; GLYCOPYRROLATE INJ 0.4 MG/2 ML VIAL ONE; LIDOCAINE 2% INJ-PF (20 MG/ML) 10 ML AMPUL ONE; NEOSTIGMINE METHYLSULFATE 10 MG/10 ML VIAL ONE; NORMAL SALINE 1000 ML (RENAL PATIENTS) IV PRN; ONDANSETRON HCL INJ/PF 4 MG/2 ML SDV ONE; PHENYLEPHRINE HCL INJ/PF 10 MG/1 ML SDV ONE; ROCURONIUM BROMIDE INJ 50 MG/5 ML VIAL IV ONE; SUCCINYLCHOLINE CHLORIDE INJ 200 MG/10 ML VIAL ONE
[2017-06-24] MEDS ORDERED: BUPIVACAINE HCL 0.25 % INJ/PF (2.5 MG/1 ML) 30 ML VIAL ONE (13:05)
[2017-06-24] MEDS: VANCOMYCIN HCL 1,000 MG in DEXTROSE 5%-WATER 250 ML IV PRN ×2 (15:45→17:25)
[2017-06-24] MEDS ORDERED: HYDROMORPHONE HCL INJ/PF 2 MG/ML AMPULE ONE (16:57)
[2017-06-24] MEDS ORDERED: FENTANYL CITRATE INJ/PF 100 MCG/2 ML AMPUL ONE ×3 (16:57→20:02)
[2017-06-24] MEDS ORDERED: ACETAMINOPHEN 100 ML IV ONE (16:58)
[2017-06-24] MEDS ORDERED: MIDAZOLAM 2 MG/2 ML INJ ONE (16:58)
[2017-06-24] MEDS ORDERED: PROPOFOL INJ 200 MG/20 ML VIAL IV ONE (16:58)
[2017-06-24] MEDS ORDERED: FENTANYL CITRATE INJ/PF 100 MCG/2 ML AMPUL IV PRN ×3 (18:15)
[2017-06-24] MEDS ORDERED: MORPHINE SULFATE 10 MG/ML INJ IV PRN ×2 (18:15→19:21)
[2017-06-24] MEDS ORDERED: PROMETHAZINE HCL INJ 25 MG/1 ML VIAL IV PRN (18:15)
[2017-06-24] MEDS ORDERED: DIPHENHYDRAMINE HCL 50 MG/ML VIAL IV PRN (18:15)
[2017-06-24] MEDS ORDERED: NORMAL SALINE 1000 ML 1,000 ML IV PRN (19:17)
[2017-06-24] MEDS ORDERED: ONDANSETRON HCL INJ/PF 4 MG/2 ML SDV IV PRN (19:17)
--- NOTE | 2017-06-24 19:17 | Operative Report ---
Operative Report DATE OF SURGERY: 06/24/17 PREOPERATIVE DIAGNOSIS: Umbilical hernia POSTOPERATIVE DIAGNOSIS: Umbilical and supraumbilical ventral hernia OPERATION: Laparoscopic umbilical and supraumbilical ventral hernia repair with mesh SURGEON: MADYSON AGUILA ANESTHESIA: GA TISSUE REMOVED OR ALTERED: Hernia sac excised but not submitted to pathology COMPLICATIONS: None ESTIMATED BLOOD LOSS: Minimal INTRAOPERATIVE FINDINGS: 3 cm umbilical hernia with herniated omentum. 1 cm supraumbilical hernia with herniated omentum. PROCEDURE: Informed consent was obtained. Patient was brought to the operating room placed on the operating room table in supine position. After satisfactory induction of general anesthesia patient's abdomen was prepped and draped in the usual sterile fashion. A supraumbilical midline incision was made dissection was carried down through the subcutaneous tissue there was herniation seen at the supraumbilical region with herniated fat. Just inferior to this there was intervening fascia which was sharply incised and the peritoneal cavity was entered without difficulty. Walsh trocar was inserted and pneumoperitoneum produced with good patient toleration. four 5 mm trochars were placed at the lateral abdomen, all 4 quadrants. Incarcerated omentum was noted at the umbilical hernia as well as the supraumbilical ventral hernia. The incarcerated omentum was reduced back into the peritoneal cavity after lysing its adhesion to the overlying hernia sac. Hemostasis appeared to be good. The hernia sac was partially excised using LigaSure device. The sac was removed but not submitted to pathology. The falciform ligament was taken down partially using the LigaSure device. Patient had a thickened preperitoneal fat inferiorly and this preperitoneal fat was removed to allow better placement of the mesh. The umbilical hernia fascial defect measured about 3 cm. There was the 1 cm intervening fascia that had been incised to allow placement of the Walsh trocar and above this trocar was the supraumbilical 1 cm fascial defect. A 15 cm Covidien Parietex composite mesh was used. It was affixed at 4 quadrants using trans-fascial PDS sutures. It was affixed circumferentially with an absorbable tacking device. The middle portions of the mesh was also tacked with the tacking device. The mesh laid flat with excellent coverage. Of note insufflation pressure was reduced prior to fixation. Hemostasis appeared excellent. Trochars were removed under the direct vision of the laparoscope to ensure hemostasis. Of note prior to fixation of the mesh the Walsh trocar site fascial defect was closed with interrupted Vicryl sutures and the Walsh trocar was removed. Marcaine was injected at all the incision sites. All incisions were closed with subcuticular interrupted Monocryl sutures. Patient tolerated procedure well with no apparent complications and was taken to the recovery area in stable condition.
[2017-06-24] MEDS ORDERED: DEXTROSE 40% GEL 15 GM TUBE PO PRN ×4 (19:20→19:45)
[2017-06-24] MEDS ORDERED: GLUCAGON,HUMAN RECOMB 1 MG INJ IM PRN (19:20)
[2017-06-24] MEDS ORDERED: DEXTROSE 50%-WATER 25 GM/50 ML DISP.SYRIN IV PRN ×4 (19:20→19:45)
[2017-06-24] MEDS ORDERED: OXYCODONE-ACETAMINOPHEN 5-325 MG TABLET PO PRN (19:23)
[2017-06-24] MEDS ORDERED: PROMETHAZINE HCL INJ 25 MG/1 ML VIAL ONE (19:26)
--- NOTE | 2017-06-24 19:44 | PDOC PROGRESS REPORT ---
Subjective Progress Note for:: 06/24/17 Subjective:: Nauseated. Coughing up phlegm. No emesis. Physical Exam Vital Signs: Temp Pulse Resp BP Pulse Ox 98.1 F 66 16 126/84 H 98 06/24/17 14:30 06/24/17 14:30 06/24/17 14:30 06/24/17 14:30 06/24/17 14:30 Intake & Output 06/23/17 06/24/17 06/25/17 06:59 06:59 06:59 Intake Total 1850 Output Total 5 Balance 1845 Weight 122.47 kg General appearance: PRESENT: no acute distress Respiratory exam: PRESENT: clear to auscultation angie Cardiovascular exam: PRESENT: RRR GI/Abdominal exam: PRESENT: other - Soft, mildly distended, appropriate tenderness. Results Laboratory Results: 06/17/17 08:50 06/17/17 08:50 Assessment & Plan - Diagnosis (1) Ventral hernia Is this a current diagnosis for this admission?: Yes Plan: Status post laparoscopic ventral hernia repair with mesh. Postop nausea. We will keep the patient n.p.o. Phenergan and Zofran as needed. Will keep the patient in the hospital for observation overnight.
[2017-06-24] MEDS ORDERED: GLUCAGON,HUMAN RECOMB 1 MG INJ SUBCUT PRN (19:45)
[2017-06-24] MEDS ORDERED: ATORVASTATIN CALCIUM 80 MG TABLET PO SCH (22:00)
[2017-06-24] MEDS: GABAPENTIN 300 MG CAPSULE PO SCH (22:30)
[2017-06-24] MEDS: INSULIN REG, HUMAN 100 UNIT/ML 3 ML VIAL (PYX) SUBCUT PRN (22:36)
[2017-06-25] MEDS: GABAPENTIN 300 MG CAPSULE PO SCH ×2 (05:29→14:38)
--- NOTE | 2017-06-25 09:32 | PDOC PROGRESS REPORT ---
Subjective Progress Note for:: 06/25/17 Subjective:: Patient wide-awake and feels well. Almost jumping up out of bed. He is very hungry. No nausea. Physical Exam Vital Signs: Temp Pulse Resp BP Pulse Ox 97.7 F 93 20 112/66 93 06/25/17 08:00 06/25/17 08:00 06/25/17 08:00 06/25/17 08:00 06/25/17 08:00 Intake & Output 06/24/17 06/25/17 06/26/17 06:59 06:59 06:59 Intake Total 3160 Output Total 5 Balance 3155 Weight 119.8 kg General appearance: PRESENT: no acute distress, cooperative Respiratory exam: PRESENT: clear to auscultation angie Cardiovascular exam: PRESENT: RRR GI/Abdominal exam: PRESENT: other - Soft, mildly distended, active bowel sounds however. Wounds are clean dry and intact. There is no erythema. Musculoskeletal exam: PRESENT: other - No swelling. Results Laboratory Results: 06/17/17 08:50 06/17/17 08:50 Assessment & Plan - Diagnosis (1) Ventral hernia Is this a current diagnosis for this admission?: Yes Plan: Doing well after laparoscopic ventral hernia repair with mesh. Will start clear liquids. When his abdominal distention has improved we will plan to discharge patient home.
[2017-06-25] MEDS ORDERED: [UNRECOGNIZED DRUG - OTHER] PO SCH (10:00)
[2017-06-25] MEDS ORDERED: ENOXAPARIN SODIUM INJ 40 MG/0.4 ML DISP.SYRIN SUBCUT SCH (10:00)
[2017-06-25] MEDS ORDERED: GLYBURIDE MICRONIZED 3 MG PO SCH (10:00)
[2017-06-25] MEDS: INSULIN REG, HUMAN 100 UNIT/ML 3 ML VIAL (PYX) SUBCUT PRN ×2 (12:51→17:23)
--- NOTE | 2017-06-25 18:13 | PDOC PROGRESS REPORT ---
Subjective Progress Note for:: 06/25/17 Subjective:: Feels well. Tolerating clears well. Passing gas. Wants to go home. Wants to eat. Physical Exam Vital Signs: Temp Pulse Resp BP Pulse Ox 98.2 F 73 20 132/63 H 99 06/25/17 16:00 06/25/17 16:00 06/25/17 16:00 06/25/17 16:00 06/25/17 16:00 Intake & Output 06/24/17 06/25/17 06/26/17 06:59 06:59 06:59 Intake Total 3160 1600 Output Total 5 Balance 3155 1600 Weight 119.8 kg General appearance: PRESENT: no acute distress, cooperative Respiratory exam: PRESENT: clear to auscultation angie Cardiovascular exam: PRESENT: RRR GI/Abdominal exam: PRESENT: other - Soft, mildly distended, minimal tenderness. Clean dry and intact. No erythema. Active bowel sounds. Musculoskeletal exam: PRESENT: other - No swelling and no tenderness. Results Laboratory Results: 06/17/17 08:50 06/17/17 08:50 Assessment & Plan - Diagnosis (1) Ventral hernia Is this a current diagnosis for this admission?: Yes Plan: Doing well after laparoscopic ventral hernia repair with mesh. Doing well. Passing gas. Tolerating a diet well. Will discharge patient home today.
[2017-06-25 18:35] VITALS: BP 137/83
--- NOTE | 2017-06-25 22:43 | DISCHARGE SUMMARY E ---
Discharge Summary NAME: RICARDO WELLS : 1955 AGE: 61Y ADMITTED: 06/24/2017 DISCHARGED: 06/25/2017 DISCHARGE DIAGNOSIS: Umbilical and ventral hernia. PROCEDURE PERFORMED DURING HOSPITALIZATION: Laparoscopic umbilical and ventral hernia repair with mesh performed by Dr. Luisa Aguila on June 24, 2017. HOSPITAL COURSE: The patient was brought into the hospital overnight. He did well. He had mild abdominal distention but active bowel sounds and had no nausea or vomiting. He was started on a clear liquid diet which he tolerated well with passage of flatus. He was feeling very well with excellent pain control, good mobility. Patient is now being discharged to home in good condition. He will follow up with me in 2 weeks. He is encouraged to stay active at home. He may resume a diabetic diet at home. He may resume his home medications. Additional medications Percocet 1 p.o. q.4 hours p.r.n. pain. He is to call me for bleeding, redness, drainage, fever or any other problems. DICTATING PHYSICIAN: LUISA AGUILA M.D. [id number] PHY#: [id number] ID: [id number] JOB#: [id number] ACCT: [id number] cc:LUISA AGUILA M.D. >
== END 2017-06-25 18:53 | disposition home or self-care (01) ==
LOC: OROUT 12:34 → 4S 20:51 → OROUT 06-25 18:53
PROVIDERS: ATTEND Surgery
PROC: 0WUF4JZ Supplement Abdominal Wall with Synthetic Substitute, Percutaneous Endoscopic Approach (ICD-10-PCS; principal; 2017-06-24 14:30)
DX: K43.6 Other and unspecified ventral hernia with obstruction, without gangrene (principal); K42.0 Umbilical hernia with obstruction, without gangrene; E11.9 Type 2 diabetes mellitus without complications; Z68.36 Body mass index [BMI] 36.0-36.9, adult; E66.9 Obesity, unspecified; Z89.429 Acquired absence of other toe(s), unspecified side; Z95.1 Presence of aortocoronary bypass graft; Z86.14 Personal history of Methicillin resistant Staphylococcus aureus infection; Z87.891 Personal history of nicotine dependence; Z79.899 Other long term (current) drug therapy; Z79.84 Long term (current) use of oral hypoglycemic drugs
CPT/HCPCS: 49653; 93005; 36415; 82962; 85027; 80053; 93010; C1781; J2250; J3490 ×7; J1100; J3010; J2270; J1650; J1170; J2370; J1815 ×2; J2550; J0330; J2405; S0020; J7060; J2704; J3370; J0131; 750

== ENCOUNTER 2018-11-26 07:34 | Emergency (ER) | payer MEDICAID ==
[2018-11-26] MEDS ORDERED: NORMAL SALINE 500 ML IV ONE (07:52)
[2018-11-26] MEDS ORDERED: ONDANSETRON HCL INJ/PF 4 MG/2 ML SDV IV ONE (07:52)
--- NOTE | 2018-11-26 08:17 | RADIOLOGY REPORT (SQ) ---
EXAM DESCRIPTION: CT HEAD WITHOUT COMPLETED DATE/TIME: 11/26/2018 7:57 am REASON FOR STUDY: possible stroke COMPARISON: None. TECHNIQUE: Axial images acquired through the brain without intravenous contrast. Images reviewed wi th bone, brain and subdural windows. Additional sagittal and coronal reconstructions were generated. Images stored on PACS. All CT scanners at this facility use dose modulation, iterative reconstruction, and/or weight based d osing when appropriate to reduce radiation dose to as low as reasonably achievable (ALARA). [facility]: Dose Right [facility]: CareDose [facility]: Dose Right [facility]: Teradose 4D [facility]: Wanelo RADIATION DOSE: CT Rad equipment meets quality standard of care and radiation dose reduction techniq ues were employed. CTDIvol: 53.2 mGy. DLP: 1070 mGy-cm. mGy. LIMITATIONS: None. FINDINGS: VENTRICLES: Normal size and contour. CEREBRUM: No masses. No hemorrhage. No midline shift. No evidence for acute infarction. Normal gra y/white matter differentiation. No areas of low density in the white matter. CEREBELLUM: No masses. No hemorrhage. No alteration of density. No evidence for acute infarction. EXTRAAXIAL SPACES: No fluid collections. No masses. ORBITS AND GLOBE: No intra- or extraconal masses. Normal contour of globe without masses. CALVARIUM: No fracture. PARANASAL SINUSES: No fluid or mucosal thickening. SOFT TISSUES: No mass or hematoma. OTHER: No other significant finding. IMPRESSION: NO ACUTE INTRACRANIAL IMAGING FINDINGS. EVIDENCE OF ACUTE STROKE: NO. COMMENT: Pertinent findings on the imaging study reported as a CRITICAL RESULT to MAMADOU Lemon t08:14 on 11/26/2018. Category of Critical Result: 1 Quality ID # [id number]: Final reports with documentation of one or more dose reduction techniques (e.g., Au tomated exposure control, adjustment of the mA and/or kV according to patient size, use of iterative reconstruction technique) TECHNICAL DOCUMENTATION: JOB ID: [id number]- All Rights Reserved Reading location - IP/workstation name: [email or web address]
--- NOTE | 2018-11-26 08:21 | RADIOLOGY REPORT (SQ) ---
EXAM DESCRIPTION: CHEST SINGLE VIEW COMPLETED DATE/TIME: 11/26/2018 7:58 am REASON FOR STUDY: possible stroke COMPARISON: AP chest 03/05/2017, 04/05/2016 CT chest 09/26/2013 EXAM PARAMETERS: NUMBER OF VIEWS: One view. TECHNIQUE: Single frontal radiographic view of the chest acquired. RADIATION DOSE: NA LIMITATIONS: None. FINDINGS: LUNGS AND PLEURA: Bandlike bibasilar atelectasis. No fluffy alveolar infiltrates worrisome for edema or pneumonia. No pleural effusion. No pneumothor ax. MEDIASTINUM AND HILAR STRUCTURES: No masses. Contour normal. HEART AND VASCULAR STRUCTURES: No cardiomegaly. Since the prior exams, patient has undergone sternot michael. BONES: No acute findings. HARDWARE: None in the chest. OTHER: No other significant finding. IMPRESSION: Interval sternotomy since 2016. Bibasilar bandlike atelectasis TECHNICAL DOCUMENTATION: JOB ID: [id number] [employer]- All Rights Reserved Reading location - IP/workstation name: [email or web address]
[2018-11-26 08:26] LABS: ABSOLUTE BASOPHILS # (AUTO) 0.1 10^3/uL (0.0-0.2); ABSOLUTE EOSINOPHILS # (AUTO) 0.2 10^3/uL (0.0-0.6); ABSOLUTE LYMPHOCYTES (AUTO) 1.4 10^3/uL (0.5-4.7); ABSOLUTE MONOCYTES (AUTO) 0.5 10^3/uL (0.1-1.4); ABSOLUTE NEUT (AUTO) 5.5 10^3/uL (1.7-8.2); BASOPHILS % (AUTO) 0.7 % (0-2); EOSINOPHILS % (AUTO) 2.5 % (0-6); HEMATOCRIT 36.4 % (37.9-51.0); HEMOGLOBIN 12.6 g/dL (13.5-17.0); LYMPHOCYTES % (AUTO) 18.1 % (13-45); MEAN CORPUSCULAR HEMOGLOBIN 27.9 pg (27.0-33.4); MEAN CORPUSCULAR HGB CONC 34.7 g/dL (32.0-36.0); MEAN CORPUSCULAR VOLUME 80 fl (80-97); PLATELET COUNT 196 10^3/uL (150-450); RED BLOOD COUNT 4.53 10^6/uL (4.35-5.55); RED CELL DISTRIBUTION WIDTH 14.3 % (11.5-14.0); SEGMENTED NEUTROPHILS % (AUTO) 72.7 % (42-78); TOTAL CELLS COUNTED % (AUTO) 100 %; WHITE BLOOD COUNT 7.6 10^3/uL (4.0-10.5)
[2018-11-26] MEDS ORDERED: MORPHINE SULFATE 10 MG/ML INJ IV ONE (08:31)
[2018-11-26 08:39] LABS: VENOUS BLOOD BASE EXCESS -0.3 mmol/L; VENOUS BLOOD HCO3 24.7 mmol/L (20-32); VENOUS BLOOD PCO2 41.4 mmHg (35-63); VENOUS BLOOD PH 7.39 (7.30-7.42)
[2018-11-26 08:46] LABS: ALANINE AMINOTRANSFERASE 35 U/L (21-72); ALBUMIN 3.7 g/dL (3.5-5.0); ALKALINE PHOSPHATASE 47 U/L (38-126); ANION GAP 11 (5-19); ASPARTATE AMINO TRANSFERASE 44 U/L (17-59); BILIRUBIN,DIRECT 0.4 mg/dL (0.0-0.4); BILIRUBIN,TOTAL 0.6 mg/dL (0.2-1.3); BLOOD UREA NITROGEN 19 mg/dL (7-20); CALCIUM 9.4 mg/dL (8.4-10.2); CARBON DIOXIDE 24 mmol/L (22-30); CHLORIDE 101 mmol/L (98-107); CREATINE KINASE 551 U/L (55-170); GLUCOSE 275 mg/dL (75-110); POTASSIUM 4.2 mmol/L (3.6-5.0); SODIUM 135.7 mmol/L (137-145); TOTAL PROTEIN 6.9 g/dL (6.3-8.2)
[2018-11-26 08:47] LABS: PARTIAL THROMBOPLASTIN TIME 27.2 SEC (23.5-35.8); PROTHROMBIN TIME 12.6 SEC (11.4-15.4)
[2018-11-26 08:48] LABS: ALCOHOL < 10 mg/dL (NONE DETECTED)
--- NOTE | 2018-11-26 08:49 | ER Document Report ---
ED General - General Chief Complaint: Nausea/Vomiting Stated Complaint: NAUSEA/VOMITING Time Seen by Provider: 11/26/18 07:42 Primary Care Provider: MILADIS JACKSON MD [Primary Care Provider] - Follow up as needed TRAVEL OUTSIDE OF THE [place] IN LAST 30 DAYS: No - HPI Notes: Patient presents to the emergency department for evaluation. Evidently he woke up this morning, got out of bed to go to the living room. He states he was going to take his medications. He had emesis as well as diarrhea simultaneously. 911 was called. The patient states he has a headache behind the right side of his eye. He denies getting to take his medications this morning. - Related Data Allergies/Adverse Reactions: No Known Allergies Allergy (Verified 06/13/17 11:14) Past Medical History - General Information source: Patient, [facility] Records - Social History Smoking Status: Never Smoker Chew tobacco use (# tins/day): No Frequency of alcohol use: unknown Family History: DM Patient has suicidal ideation: No Patient has homicidal ideation: No - Past Medical History Cardiac Medical History: Reports: Hx Coronary Artery Disease, Hx Peripheral Vascular Disease Denies: Hx Heart Attack, Hx Hypertension Pulmonary Medical History: Reports: Hx Pneumonia - hx Denies: Hx Asthma, Hx Bronchitis, Hx COPD Neurological Medical History: Denies: Hx Cerebrovascular Accident, Hx Seizures Endocrine Medical History: Reports: Hx Diabetes Mellitus Type 2 Renal/ Medical History: Denies: Hx Peritoneal Dialysis Musculoskeletal Medical History: Reports Hx Arthritis Past Surgical History: Reports: Hx Coronary Artery Bypass Graft, Hx Open Heart Surgery, Hx Orthopedic Surgery - left 2nd toe amputated - Immunizations Hx Diphtheria, Pertussis, Tetanus Vaccination: Yes Review of Systems - Review of Systems -: Yes ROS unobtainable due to patient's medical condition - Patient intermittently cooperative, unsure if reliable ROS Constitutional: Chills EENT: No symptoms reported, See HPI Cardiovascular: No symptoms reported Respiratory: No symptoms reported Gastrointestinal: See HPI Genitourinary: No symptoms reported Musculoskeletal: No symptoms reported Skin: No symptoms reported Neurological/Psychological: No symptoms reported Physical Exam - Vital signs Vitals: Pulse Ox 91 L 11/26/18 07:43 Notes: Heart rate 71, SPO2 92% on room air, respirations 19 and nonlabored, blood pressure 176/89 - Notes Notes: Patient is a 63-year-old gentleman, disheveled, moderately agitated, in mild amount of distress. Went into the room to examine him he is trying to stand up, actively gagging. Head is normocephalic and appears atraumatic. Pupils are equal, round, reactive to light. Oral mucosa is moist. Neck reveals no signs of meningismus. Heart is regular rate and rhythm lungs are clear to auscultation bilaterally. Abdomen is soft, nontender, normoactive bowel sounds. Patient is awake and alert. He is able to tell me that he has an ophthalmology appointment tomorrow with his retinal specialist, but can only tell me "I am here" when asked where he is located. He becomes easily agitated and stops answering questions. He will not cooperate with a complete neurological exam. He is moving all 4 extremities spontaneously. No gross facial asymmetry. Cl ubbing, edema. Patient has a surgically missing right second toe. No other erythema or signs of chronic wounds is appreciated. Course - Re-evaluation Re-evalutation: 11/26/18 08:48 Patient presents to the emergency department for evaluation. I was immediately notified by nursing that the patient was exhibiting signs of altered mental status. There was no report from EMS of this prior to his arrival. Given this information, as well as his vomiting, the patient was sent to CT scan of the head to rule out an intracranial bleed. As contacted by radiology, notified that this was in fact negative for anything acute. I did go back and reexamined the patient. He continues to be slightly altered, but is able to speak more c oherently. We will treat his pain, nausea, judicious IV fluids administered given his history of coronary artery disease and reduced ejection fraction. We will continue to follow. 11/26/18 10:28 Patient seen and reexamined. He became more lucid throughout the course of his stay. On this last discussion he admitted that he was feeling very anxious. His father approximately 1 year ago under circumstances where he collapsed on the ground in his house, no one could get in. He became extremely concerned that no one would be able to get into his house. He uses a hargrove to lock his door is from the inside. He became very agitated and anxious over this thought process. He is feeling improved. He is very concerned about making it to his appointment with his retinal specialist tomorrow. Assuming urinalysis is unremarkable, we will send patient home with a small amount of nausea medication and close follow-up. Complete and thorough neurological exam is performed at this time was found to be entirely unremarkable. - Vital Signs Vital signs: Temp Pulse Resp BP Pulse Ox 15 151/78 H 98 11/26/18 10:01 11/26/18 10:01 11/26/18 10:01 - Laboratory Result Diagrams: 11/26/18 08:11 11/26/18 08:11 Laboratory results interpreted by me: 11/26/18 11/26/18 11/26/18 08:11 08:11 08:11 Hgb 12.6 L Hct 36.4 L RDW 14.3 H Sodium 135.7 L Glucose 275 H POC Glucose Creatine Kinase 551 H CK-MB (CK-2) 9.66 H Urine Protein Urine Glucose (UA) Urine Blood 11/26/18 11/26/18 08:25 10:05 Hgb Hct RDW Sodium Glucose POC Glucose 242 H Creatine Kinase CK-MB (CK-2) Urine Protein >=500 H Urine Glucose (UA) >=500 H Urine Blood SMALL H - Diagnostic Test Radiology reviewed: Reports reviewed - Negative for acute findings other than atelectasis - EKG Interpretation by Me Additional EKG results interpreted by me: 11/26/18 09:00 Sinus mechanism with a rate of 76 bpm. Left axis deviation, IVCD. Nonspecific ST changes but no acute changes concerning for ischemia or infarction. Discharge - Discharge Clinical Impression: Nausea and vomiting, Diarrhea Condition: Stable Disposition: HOME, SELF-CARE Instructions: Antinausea Medication ([facility]), Intravenous (IV) Fluids ([facility]) Additional Instructions: Stay hydrated with small, frequent sips of fluids. Clear liquids only for the next several hours, advance slowly to bland diet as tolerated this evening. Follow-up with your doctor in 1-2 days. Return to the emergency department with worsening or new concerning symptoms of any sort. Prescriptions: Ondansetron [Zofran Odt 4 mg Tablet] 1 tab PO Q4H PRN #15 tab.rapdis PRN Reason: For Nausea/Vomiting Referrals: MILADIS JACKSON MD [Primary Care Provider] - Follow up as needed
[2018-11-26 08:56] LABS: CREATINE KINASE MB 9.66 ng/mL (<4.55); TROPONIN I 0.029 ng/mL
[2018-11-26 10:45] LABS: URINE AMPHETAMINES SCREEN NEGATIVE; URINE BARBITURATES SCREEN NEGATIVE; URINE BENZODIAZEPINES SCREEN NEGATIVE; URINE COCAINE SCREEN NEGATIVE; URINE MARIJUANA (THC) SCREEN NEGATIVE; URINE METHADONE SCREEN NEGATIVE; URINE PHENCYCLIDINE SCREEN NEGATIVE
[2018-11-26 10:56] LABS: APPEARANCE,URINE CLEAR; BILIRUBIN,URINE NEGATIVE (NEGATIVE); COLOR,URINE YELLOW; GLUCOSE, URINE >=500 mg/dL (NEGATIVE); KETONES,URINE NEGATIVE (NEGATIVE); LEUKOCYTE ESTERASE,URINE NEGATIVE (NEGATIVE); NITRITE,URINE NEGATIVE (NEGATIVE); PROTEIN,URINE >=500 mg/dL (NEGATIVE); URINE SPECIFIC GRAVITY 1.014; UROBILINOGEN,URINE NEGATIVE mg/dL (<2.0)
[2018-11-26 11:48] VITALS: BP 131/69
--- NOTE | 2018-11-26 22:49 | EKG REPORT ---
SEVERITY:- ABNORMAL ECG - SINUS RHYTHM NONSPECIFIC INTRAVENTRICULAR CONDUCTION DELAY : Confirmed by: Rafaela Treviño 26-Nov-2018 22:48:52
== END 2018-11-26 11:56 | disposition home or self-care (01) ==
LOC: ER 07:34
DX: R11.2 Nausea with vomiting, unspecified (principal); R19.7 Diarrhea, unspecified; I25.10 Atherosclerotic heart disease of native coronary artery without angina pectoris
CPT/HCPCS: 93005; 99285; 96374; 96375; 36415; 87040; 82553; 82962; 80307 ×2; 82550; 85025; 85610; 85730; 80053; 81001; 84484; 82803; 83605; 71045; 70450; 93010; J2270; J2405; J7040

== ENCOUNTER 2019-04-14 12:20 | Emergency (ER) | payer MEDICAID ==
[2019-04-14 12:44] LABS: ABSOLUTE BASOPHILS # (AUTO) 0.1 10^3/uL (0.0-0.2); ABSOLUTE EOSINOPHILS # (AUTO) 0.2 10^3/uL (0.0-0.6); ABSOLUTE LYMPHOCYTES (AUTO) 1.6 10^3/uL (0.5-4.7); ABSOLUTE MONOCYTES (AUTO) 0.5 10^3/uL (0.1-1.4); ABSOLUTE NEUT (AUTO) 6.1 10^3/uL (1.7-8.2); BASOPHILS % (AUTO) 0.9 % (0-2); EOSINOPHILS % (AUTO) 2.4 % (0-6); HEMATOCRIT 37.8 % (37.9-51.0); LYMPHOCYTES % (AUTO) 18.9 % (13-45); MEAN CORPUSCULAR HEMOGLOBIN 27.4 pg (27.0-33.4); MEAN CORPUSCULAR HGB CONC 34.4 g/dL (32.0-36.0); MEAN CORPUSCULAR VOLUME 80 fl (80-97); MONOCYTES % (AUTO) 5.4 % (3-13); PLATELET COUNT 266 10^3/uL (150-450); RED BLOOD COUNT 4.74 10^6/uL (4.35-5.55); SEGMENTED NEUTROPHILS % (AUTO) 72.4 % (42-78); TOTAL CELLS COUNTED % (AUTO) 100 %; WHITE BLOOD COUNT 8.4 10^3/uL (4.0-10.5)
[2019-04-14 13:00] LABS: ALBUMIN 4.4 g/dL (3.5-5.0); ALKALINE PHOSPHATASE 58 U/L (38-126); ANION GAP 9 (5-19); ASPARTATE AMINO TRANSFERASE 37 U/L (17-59); BILIRUBIN,DIRECT 0.3 mg/dL (0.0-0.4); BILIRUBIN,TOTAL 0.5 mg/dL (0.2-1.3); BLOOD UREA NITROGEN 18 mg/dL (7-20); CALCIUM 10.5 mg/dL (8.4-10.2); CARBON DIOXIDE 27 mmol/L (22-30); CHLORIDE 102 mmol/L (98-107); GLUCOSE 226 mg/dL (75-110); POTASSIUM 4.7 mmol/L (3.6-5.0); TOTAL PROTEIN 7.6 g/dL (6.3-8.2)
[2019-04-14 14:45] VITALS: BP 141/87
--- NOTE | 2019-04-14 14:46 | ER Document Report ---
ED General - General Chief Complaint: Heat Exposure Stated Complaint: VOMITING Time Seen by Provider: 04/14/19 12:59 Primary Care Provider: IXOMY HARDING FNP-C [Primary Care Provider] - Follow up tomorrow TRAVEL OUTSIDE OF THE [place] IN LAST 30 DAYS: No - HPI Notes: 63-year-old male to the emergency department with complaints of lightheadedness, vomiting that occurred after being out in the heat for several hours. He states that he was moving sand underneath his house. He states that he was sweating profusely and then he began to feel lightheaded. States that this made him nauseated and he vomited several times. States he called EMS who brought him here. He denies any chest pain, shortness of breath, diarrhea, leg swelling, headache, syncope. Per medics, he was apparently acutely confused when they first picked him up. - Related Data Allergies/Adverse Reactions: No Known Allergies Allergy (Verified 06/13/17 11:14) Past Medical History - General Information source: Patient - Social History Smoking Status: Current Every Day Smoker Frequency of alcohol use: Occasional Drug Abuse: None Family History: DM Patient has suicidal ideation: No Patient has homicidal ideation: No - Past Medical History Cardiac Medical History: Reports: Hx Coronary Artery Disease, Hx Peripheral Vascular Disease Denies: Hx Heart Attack, Hx Hypertension Pulmonary Medical History: Reports: Hx Pneumonia - hx Denies: Hx Asthma, Hx Bronchitis, Hx COPD Neurological Medical History: Denies: Hx Cerebrovascular Accident, Hx Seizures Endocrine Medical History: Reports: Hx Diabetes Mellitus Type 2 Renal/ Medical History: Denies: Hx Peritoneal Dialysis Musculoskeletal Medical History: Reports Hx Arthritis Past Surgical History: Reports: Hx Coronary Artery Bypass Graft, Hx Open Heart Surgery, Hx Orthopedic Surgery - left 2nd toe amputated - Immunizations Hx Diphtheria, Pertussis, Tetanus Vaccination: Yes Review of Systems - Review of Systems Constitutional: Diaphoresis. denies: Chills, Fever EENT: No symptoms reported Cardiovascular: Lightheaded. denies: Chest pain, Palpitations, Dyspnea, Syncope Respiratory: denies: Cough, Short of breath Gastrointestinal: Nausea, Vomiting. denies: Abdominal pain, Diarrhea Genitourinary: No symptoms reported Musculoskeletal: No symptoms reported Skin: No symptoms reported Hematologic/Lymphatic: No symptoms reported Neurological/Psychological: No symptoms reported -: Yes All other systems reviewed and negative Physical Exam - Vital signs Vitals: Resp Pulse Ox 18 92 04/14/19 12:31 04/14/19 12:31 Selected Entries 04/14/19 04/14/19 13:01 14:00 Heart Rate ( 86 75 Monitors) Respiratory 18 17 Rate Blood Pressure 121/76 141/87 H Interpretation: Normal - General General appearance: Appears well, Alert In distress: None - HEENT Head: Normocephalic, Atraumatic Eyes: Normal Pupils: PERRL - Respiratory Respiratory status: No respiratory distress Chest status: Nontender Breath sounds: Normal Chest palpation: Normal - Cardiovascular Rhythm: Regular Heart sounds: Normal auscultation Murmur: No - Abdominal Inspection: Normal Distension: No distension Bowel sounds: Normal Tenderness: Nontender Organomegaly: No organomegaly - Back Back: Normal, Nontender - Neurological Neuro grossly intact: Yes Cognition: Normal Orientation: AAOx4. No: Disoriented to person, Disoriented to place, Disoriented to time, Disoriented to events [place] Coma Scale Eye Opening: Spontaneous [place] Coma Scale Verbal: Oriented [place] Coma Scale Motor: Obeys Commands [place] Coma Scale Total: 15 Speech: Normal Cranial nerves: Normal. No: Facial palsy, Forehead sparing, Gaze palsy Cerebellar coordination: Normal. 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 No: Pronator drift Sensory: Normal - Psychological Associated symptoms: Normal affect, Normal mood - Skin Skin Temperature: Warm Skin Moisture: Dry Skin Color: Normal Course - Re-evaluation Re-evalutation: 04/14/19 Patient states that he is feeling better after fluids and antiemetics. He is not altered. He can tell me what happened very well. He is oriented to person, place and time. We have p.o. challenge him here in the emergency department and he has done well. We have ambulated him and he has done well. He refuses to give urine specimen and would like to be discharged home. His lab work is reassuring. Have encouraged him to stay out of the heat. Encouraged him to push fluids. Encouraged him to follow-up with his primary care. I have encouraged him to return here if any worsening symptoms such as chest pain, shortness of breath, passing out, or any other complaints. - Vital Signs Vital signs: Temp Pulse Resp BP Pulse Ox 17 141/87 H 92 04/14/19 14:01 04/14/19 14:00 04/14/19 12:31 - Laboratory Result Diagrams: 04/14/19 12:26 04/14/19 12:26 Laboratory results interpreted by me: 04/14/19 04/14/19 12:26 12:26 Hgb 13.0 L Hct 37.8 L RDW 15.0 H Glucose 226 H Calcium 10.5 H - EKG Interpretation by Me EKG shows normal: Sinus rhythm Rate: Normal Rhythm: NSR Additional EKG results interpreted by me: 04/14/19 No STEMI, V2 T wave inversions that is new from November 26, 2018 EKG otherwise no significant changes. Discharge - Discharge Clinical Impression: Heat exposure Qualifiers: Encounter type: initial encounter Qualified Code(s): T67.9XXA - Effect of heat and light, unspecified, initial encounter Vomiting Qualifiers: Vomiting type: unspecified Vomiting Intractability: non-intractable Nausea presence: with nausea Qualified Code(s): R11.2 - Nausea with vomiting, unspecified Disposition: HOME, SELF-CARE Instructions: Heat Exhaustion ([facility]) Additional Instructions: FOLLOW UP WITH PRIMARY CARE WITHOUT FAIL BY FRIDAY. RETURN IF WORSE. STAY OUT OF THE HEAT. PUSH FLUIDS. RETURN IF WORSENING SYMPTOMS SUCH INTRACTABLE VOMITING, FEVERS, CHEST PAIN, SHORTNESS OF BREATH. Referrals: XIOMY HARDING, [employer] [Primary Care Provider] - Follow up tomorrow
--- NOTE | 2019-04-14 17:35 | EKG REPORT ---
SEVERITY:- BORDERLINE ECG - SINUS RHYTHM PROBABLE LEFT ATRIAL ABNORMALITY BORDERLINE LEFT AXIS DEVIATION BORDERLINE T ABNORMALITIES, ANT-LAT LEADS : Confirmed by: Louie Muhammad MD 14-Apr-2019 17:35:07
== END 2019-04-14 15:00 | disposition home or self-care (01) ==
LOC: ER 12:20
DX: T67.9XXA Effect of heat and light, unspecified, initial encounter (principal); R11.2 Nausea with vomiting, unspecified; R61 Generalized hyperhidrosis; X58.XXXA Exposure to other specified factors, initial encounter; Y93.H1 Activity, digging, shoveling and raking; Y92.008 Other place in unspecified non-institutional (private) residence as the place of occurrence of the external cause; I25.10 Atherosclerotic heart disease of native coronary artery without angina pectoris; E11.9 Type 2 diabetes mellitus without complications; Z95.1 Presence of aortocoronary bypass graft
CPT/HCPCS: 36415; 80053; 85025; 93005; 93010

== ENCOUNTER 2019-07-09 00:33 | Emergency (ER) | payer MEDICAID ==
[2019-07-09] MEDS ORDERED: ONDANSETRON HCL INJ/PF 4 MG/2 ML SDV ONE (01:02)
[2019-07-09] MEDS ORDERED: ONDANSETRON HCL INJ/PF 4 MG/2 ML SDV IV ONE (01:03)
[2019-07-09 01:11] LABS: ABSOLUTE BASOPHILS # (AUTO) 0.1 10^3/uL (0.0-0.2); ABSOLUTE EOSINOPHILS # (AUTO) 0.3 10^3/uL (0.0-0.6); ABSOLUTE LYMPHOCYTES (AUTO) 2.5 10^3/uL (0.5-4.7); ABSOLUTE MONOCYTES (AUTO) 0.5 10^3/uL (0.1-1.4); BASOPHILS % (AUTO) 0.6 % (0-2); EOSINOPHILS % (AUTO) 4.2 % (0-6); HEMATOCRIT 36.1 % (37.9-51.0); HEMOGLOBIN 12.6 g/dL (13.5-17.0); LYMPHOCYTES % (AUTO) 30.1 % (13-45); MEAN CORPUSCULAR HEMOGLOBIN 28.6 pg (27.0-33.4); MEAN CORPUSCULAR HGB CONC 34.9 g/dL (32.0-36.0); MEAN CORPUSCULAR VOLUME 82 fl (80-97); MONOCYTES % (AUTO) 6.1 % (3-13); PLATELET COUNT 253 10^3/uL (150-450); RED BLOOD COUNT 4.41 10^6/uL (4.35-5.55); RED CELL DISTRIBUTION WIDTH 15.1 % (11.5-14.0); TOTAL CELLS COUNTED % (AUTO) 100 %; WHITE BLOOD COUNT 8.4 10^3/uL (4.0-10.5)
[2019-07-09] MEDS ORDERED: NORMAL SALINE 1000 ML 1,000 ML IV ONE ×2 (01:14→03:40)
[2019-07-09] MEDS ORDERED: PROMETHAZINE HCL INJ 25 MG/1 ML VIAL IV ONE (01:21)
[2019-07-09] MEDS ORDERED: MORPHINE SULFATE 10 MG/ML INJ IV ONE (01:25)
[2019-07-09 01:29] LABS: ALBUMIN 4.2 g/dL (3.5-5.0); ALKALINE PHOSPHATASE 52 U/L (38-126); ANION GAP 11 (5-19); ASPARTATE AMINO TRANSFERASE 39 U/L (17-59); BILIRUBIN,DIRECT 0.1 mg/dL (0.0-0.4); BILIRUBIN,TOTAL 0.5 mg/dL (0.2-1.3); BLOOD UREA NITROGEN 21 mg/dL (7-20); CALCIUM 9.6 mg/dL (8.4-10.2); CARBON DIOXIDE 25 mmol/L (22-30); CHLORIDE 102 mmol/L (98-107); CREATINE KINASE 470 U/L (55-170); GLUCOSE 245 mg/dL (75-110); POTASSIUM 3.9 mmol/L (3.6-5.0); TOTAL PROTEIN 7.2 g/dL (6.3-8.2)
--- NOTE | 2019-07-09 01:44 | RADIOLOGY REPORT (SQ) ---
EXAM DESCRIPTION: XR CHEST 1 VIEW COMPLETED DATE/TME: 07/09/2019 00:00 CLINICAL HISTORY: 63 years, Male, vomiting COMPARISON: 11/26/2018 chest NUMBER OF VIEWS: 1 TECHNIQUE: Portable chest LIMITATIONS: None. FINDINGS: Cardiomegaly. Postsurgical changes of the mediastinum. Minimal scarring right lung base. No pneumothorax. Lungs are otherwise clear IMPRESSION: Cardiomegaly. No acute cardiopulmonary process copyright 2010 [employer]- All Rights Reserved
--- NOTE | 2019-07-09 01:45 | RADIOLOGY REPORT (SQ) ---
EXAM DESCRIPTION: CT HEAD WITHOUT IV CONTRAST COMPLETED DATE/TME: 07/09/2019 01:03 CLINICAL HISTORY: 63 years, Male, severe headache, vomiting.PT. SCANNED LAYING ON RIGHT SIDE COMPARISON: 11/26/2018 CT TECHNIQUE: 203 Images stored on PACS. All CT scanners at this facility use dose modulation, iterative reconstruction, and/or weight based dosing when appropriate to reduce radiation dose to as low as reasonably achievable (ALARA). [facility]: Dose Right [facility]: CareDose [facility]: Dose Right [facility]: Teradose 4D [facility]: [employer] LIMITATIONS: None. FINDINGS: As visualized the globes are intact. Polyps of the maxillary sinuses. Portions of the right frontal bone are not included on the exam. No evidence for displaced or depressed skull fracture. Negative for intra or extra-axial hemorrhage. CT is limited for evaluation of acute infarct. No CT evidence for large or territorial acute infarct. Mild age-appropriate atrophy and minor small vessel ischemic change IMPRESSION: No acute intracranial abnormality TECHNICAL DOCUMENTATION: Quality ID # 436: Final reports with documentation of one or more dose reduction techniques (e.g., Automated exposure control, adjustment of the mA and/or kV according to patient size, use of iterative reconstruction technique) copyright 2011 [employer]- All Rights Reserved
[2019-07-09 01:51] LABS: CREATINE KINASE MB 9.71 ng/mL (<4.55); TROPONIN I 0.014 ng/mL
[2019-07-09 03:03] LABS: APPEARANCE,URINE CLEAR; BILIRUBIN,URINE NEGATIVE (NEGATIVE); COLOR,URINE YELLOW; GLUCOSE, URINE >=500 mg/dL (NEGATIVE); KETONES,URINE NEGATIVE (NEGATIVE); LEUKOCYTE ESTERASE,URINE NEGATIVE (NEGATIVE); NITRITE,URINE NEGATIVE (NEGATIVE); PROTEIN,URINE >=500 mg/dL (NEGATIVE); URINE SPECIFIC GRAVITY 1.011; UROBILINOGEN,URINE NEGATIVE mg/dL (<2.0)
[2019-07-09] MEDS ORDERED: METOCLOPRAMIDE HCL INJ/PF 10 MG/2 ML SDV IV ONE (03:15)
[2019-07-09 04:24] LABS: URINE AMPHETAMINES SCREEN NEGATIVE; URINE BARBITURATES SCREEN NEGATIVE; URINE BENZODIAZEPINES SCREEN NEGATIVE; URINE COCAINE SCREEN NEGATIVE; URINE MARIJUANA (THC) SCREEN NEGATIVE; URINE METHADONE SCREEN NEGATIVE; URINE PHENCYCLIDINE SCREEN NEGATIVE
--- NOTE | 2019-07-09 07:14 | ER Document Report ---
ED General - General Chief Complaint: Vomiting Stated Complaint: VOMITING Time Seen by Provider: 07/09/19 00:55 Primary Care Provider: XIOMY HARDING FNP-C [Primary Care Provider] - Follow up as needed Mode of Arrival: Medic Information source: Patient Notes: Patient is a 63-year-old male presenting to the emergency department via EMS with onset of vomiting, headache and nausea that began at 11:00 this evening. Patient reports the symptoms awoke him from sleep. Patient denies any chest pain or shortness of breath. He does arrive very diaphoretic but with otherwise stable vital signs. TRAVEL OUTSIDE OF THE [place] IN LAST 30 DAYS: No - Related Data Allergies/Adverse Reactions: No Known Allergies Allergy (Verified 06/13/17 11:14) Past Medical History - General Information source: Patient - Social History Smoking Status: Never Smoker Frequency of alcohol use: None Drug Abuse: None Lives with: Alone Family History: DM Patient has suicidal ideation: No Patient has homicidal ideation: No - Past Medical History Cardiac Medical History: Reports: Hx Coronary Artery Disease, Hx Peripheral Vascular Disease Denies: Hx Heart Attack, Hx Hypertension Pulmonary Medical History: Reports: Hx Pneumonia - hx Denies: Hx Asthma, Hx Bronchitis, Hx COPD Neurological Medical History: Denies: Hx Cerebrovascular Accident, Hx Seizures Endocrine Medical History: Reports: Hx Diabetes Mellitus Type 2 Renal/ Medical History: Denies: Hx Peritoneal Dialysis Musculoskeletal Medical History: Reports Hx Arthritis Past Surgical History: Reports: Hx Coronary Artery Bypass Graft, Hx Open Heart Surgery, Hx Orthopedic Surgery - left 2nd toe amputated - Immunizations Hx Diphtheria, Pertussis, Tetanus Vaccination: Yes Review of Systems - Review of Systems Constitutional: See HPI EENT: No symptoms reported Cardiovascular: No symptoms reported Respiratory: No symptoms reported Gastrointestinal: See HPI Genitourinary: No symptoms reported Male Genitourinary: No symptoms reported Musculoskeletal: No symptoms reported Skin: No symptoms reported Hematologic/Lymphatic: No symptoms reported Neurological/Psychological: No symptoms reported Physical Exam - Vital signs Vitals: Pulse Ox 93 07/09/19 00:38 - Notes Notes: PHYSICAL EXAMINATION: GENERAL: Ill-appearing, actively vomiting. HEAD: Atraumatic, normocephalic. EYES: Pupils equal round and reactive to light, extraocular movements intact, sclera anicteric, conjunctiva are normal. ENT: Nares patent, oropharynx clear without exudates. Moist mucous membranes. NECK: Normal range of motion, supple without lymphadenopathy LUNGS: Breath sounds clear to auscultation bilaterally and equal. No wheezes rales or rhonchi. HEART: Regular rate and rhythm without murmurs ABDOMEN: Soft, nontender, distended abdomen. No guarding, no rebound. No masses appreciated. Musculoskeletal: Normal range of motion, no pitting or edema. No cyanosis. NEUROLOGICAL: Cranial nerves grossly intact. Normal speech. Normal sensory, motor exams PSYCH: Normal mood, normal affect. SKIN: Clammy, diaphoretic. Course - Re-evaluation Re-evalutation: Laboratory 07/09/19 07/09/19 07/09/19 00:46 00:50 00:50 WBC 8.4 RBC 4.41 Hgb 12.6 L Hct 36.1 L MCV 82 MCH 28.6 MCHC 34.9 RDW 15.1 H Plt Count 253 Lymph % (Auto) 30.1 [place] % (Auto) 6.1 Eos % (Auto) 4.2 Baso % (Auto) 0.6 Absolute Neuts (auto) 5.0 Absolute Lymphs (auto) 2.5 Absolute Monos (auto) 0.5 Absolute Eos (auto) 0.3 Absolute Basos (auto) 0.1 Seg Neutrophils % 59.0 Sodium 138.0 Potassium 3.9 Chloride 102 Carbon Dioxide 25 Anion Gap 11 BUN 21 H Creatinine 0.78 Est GFR ( Amer) > 60 Est GFR (MDRD) Non-Af > 60 Glucose 245 H POC Glucose 241 H Lactic Acid Calcium 9.6 Total Bilirubin 0.5 Direct Bilirubin 0.1 Neonat Total Bilirubin Not Reportable Neonat Direct Bilirubin Not Reportable Neonat Indirect Bili Not Reportable AST 39 ALT 31 Alkaline Phosphatase 52 Creatine Kinase 470 H CK-MB (CK-2) Troponin I Total Protein 7.2 Albumin 4.2 Urine Color Urine Appearance Urine pH Ur Specific [place] Urine Protein Urine Glucose (UA) Urine Ketones Urine Blood Urine Nitrite Urine Bilirubin Urine Urobilinogen Ur Leukocyte Esterase Urine WBC (Auto) Urine RBC (Auto) U Hyaline Cast (Auto) Squamous Epi Cells Auto Urine Ascorbic Acid Urine Opiates Screen Urine Methadone Screen Ur Barbiturates Screen Ur Phencyclidine Scrn Ur Amphetamines Screen U Benzodiazepines Scrn Urine Cocaine Screen U Marijuana (THC) Screen Serum Alcohol 07/09/19 07/09/19 07/09/19 00:50 00:50 00:50 WBC RBC Hgb Hct MCV MCH MCHC RDW Plt Count Lymph % (Auto) [place] % (Auto) Eos % (Auto) Baso % (Auto) Absolute Neuts (auto) Absolute Lymphs (auto) Absolute Monos (auto) Absolute Eos (auto) Absolute Basos (auto) Seg Neutrophils % Sodium Potassium Chloride Carbon Dioxide Anion Gap BUN Creatinine Est GFR ( Amer) Est GFR (MDRD) Non-Af Glucose POC Glucose Lactic Acid 1.8 Calcium Total Bilirubin Direct Bilirubin Neonat Total Bilirubin Neonat Direct Bilirubin Neonat Indirect Bili AST ALT Alkaline Phosphatase Creatine Kinase CK-MB (CK-2) 9.71 H Troponin I 0.014 Total Protein Albumin Urine Color Urine Appearance Urine pH Ur Specific [place] Urine Protein Urine Glucose (UA) Urine Ketones Urine Blood Urine Nitrite Urine Bilirubin Urine Urobilinogen Ur Leukocyte Esterase Urine WBC (Auto) Urine RBC (Auto) U Hyaline Cast (Auto) Squamous Epi Cells Auto Urine Ascorbic Acid Urine Opiates Screen Urine Methadone Screen Ur Barbiturates Screen Ur Phencyclidine Scrn Ur Amphetamines Screen U Benzodiazepines Scrn Urine Cocaine Screen U Marijuana (THC) Screen Serum Alcohol < 10 07/09/19 07/09/19 07/09/19 02:50 02:50 03:52 WBC RBC Hgb Hct MCV MCH MCHC RDW Plt Count Lymph % (Auto) [place] % (Auto) Eos % (Auto) Baso % (Auto) Absolute Neuts (auto) Absolute Lymphs (auto) Absolute Monos (auto) Absolute Eos (auto) Absolute Basos (auto) Seg Neutrophils % Sodium Potassium Chloride Carbon Dioxide Anion Gap BUN Creatinine Est GFR ( Amer) Est GFR (MDRD) Non-Af Glucose POC Glucose 212 H Lactic Acid Calcium Total Bilirubin Direct Bilirubin Neonat Total Bilirubin Neonat Direct Bilirubin Neonat Indirect Bili AST ALT Alkaline Phosphatase Creatine Kinase CK-MB (CK-2) Troponin I Total Protein Albumin Urine Color YELLOW Urine Appearance CLEAR Urine pH 7.0 Ur Specific [place] 1.011 Urine Protein >=500 H Urine Glucose (UA) >=500 H Urine Ketones NEGATIVE Urine Blood NEGATIVE Urine Nitrite NEGATIVE Urine Bilirubin NEGATIVE Urine Urobilinogen NEGATIVE Ur Leukocyte Esterase NEGATIVE Urine WBC (Auto) 1 Urine RBC (Auto) 10 U Hyaline Cast (Auto) 1 Squamous Epi Cells Auto <1 Urine Ascorbic Acid 20 H Urine Opiates Screen UNCONFIRMED POSITIVE Urine Methadone Screen NEGATIVE Ur Barbiturates Screen NEGATIVE Ur Phencyclidine Scrn NEGATIVE Ur Amphetamines Screen NEGATIVE U Benzodiazepines Scrn NEGATIVE Urine Cocaine Screen NEGATIVE U Marijuana (THC) Screen NEGATIVE Serum Alcohol Chest X-Ray 07/09/19 00:00 IMPRESSION: Cardiomegaly. No acute cardiopulmonary process copyright 2010 [employer]- All Rights Reserved Head CT 07/09/19 01:03 IMPRESSION: No acute intracranial abnormality TECHNICAL DOCUMENTATION: Quality ID # 436: Final reports with documentation of one or more dose reduction techniques (e.g., Automated exposure control, adjustment of the mA and/or kV according to patient size, use of iterative reconstruction technique) copyright 2010 [employer]- All Rights Reserved 07/09/19 08:44 EKG shows a sinus rhythm, rate of 83, QTc 442, no ST segment elevations or depressions to suggest ischemia. Repeat troponin was negative. Patient feels much improved, states he has had 2 other incidences like this where he became very ill with vomiting however nothing was found to be wrong with him. Patient requesting discharge home. Patient appears much improved from arrival. Patient will be discharged home with close follow-up with PCP, ED return precautions discussed, patient verbalizes understanding and agreement with same. - Vital Signs Vital signs: Temp Pulse Resp BP Pulse Ox 97.5 F 74 20 121/81 94 07/09/19 08:55 07/09/19 08:55 07/09/19 08:55 07/09/19 08:55 07/09/19 08:55 - Laboratory Result Diagrams: 07/09/19 00:50 07/09/19 00:50 Laboratory results interpreted by me: 07/09/19 07/09/19 07/09/19 00:46 00:50 00:50 Hgb 12.6 L Hct 36.1 L RDW 15.1 H BUN 21 H Glucose 245 H POC Glucose 241 H Creatine Kinase 470 H CK-MB (CK-2) Urine Protein Urine Glucose (UA) Urine Ascorbic Acid 07/09/19 07/09/19 07/09/19 00:50 02:50 03:52 Hgb Hct RDW BUN Glucose POC Glucose 212 H Creatine Kinase CK-MB (CK-2) 9.71 H Urine Protein >=500 H Urine Glucose (UA) >=500 H Urine Ascorbic Acid 20 H Discharge - Discharge Clinical Impression: Vomiting Qualifiers: Vomiting type: unspecified Vomiting Intractability: unspecified Nausea presence: unspecified Qualified Code(s): R11.10 - Vomiting, unspecified Diabetes Qualifiers: Diabetes mellitus type: type 2 Diabetes mellitus 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 Use the Zofran as needed for nausea or vomiting. Return to the emergency department for any new or worsening symptoms. Prescriptions: Ondansetron [Zofran Odt 4 mg Tablet] 1 - 2 tab PO Q4H PRN #15 tab.rapdis PRN Reason: For Nausea/Vomiting Referrals: XIOMY HARDING FNP-C [Primary Care Provider] - Follow up as needed
[2019-07-09 08:48] VITALS: BP 121/81
--- NOTE | 2019-07-09 21:52 | EKG REPORT ---
SEVERITY:- ABNORMAL ECG - SINUS RHYTHM NONSPECIFIC INTRAVENTRICULAR CONDUCTION DELAY CONSIDER ANTEROSEPTAL INFARCT : Confirmed by: Louie Muhammad MD 09-Jul-2019 21:51:49
== END 2019-07-09 08:55 | disposition home or self-care (01) ==
LOC: ER 00:33
DX: R11.2 Nausea with vomiting, unspecified (principal); R51 Headache; E11.51 Type 2 diabetes mellitus with diabetic peripheral angiopathy without gangrene; R61 Generalized hyperhidrosis; I25.10 Atherosclerotic heart disease of native coronary artery without angina pectoris; I51.7 Cardiomegaly; Z95.1 Presence of aortocoronary bypass graft
CPT/HCPCS: 93005; 99284; 96361; 96374; 96375; 36415; 82553; 82962; 80307 ×2; 82550; 85025; 80053; 81001; 84484; 83605; 71045; 70450; 93010; L1830; J2765; J2270; J2550; J2405; J7030

== ENCOUNTER 2019-12-21 04:08 | Observation (INO) | payer MEDICAID ==
[2019-12-21] MEDS ORDERED: NORMAL SALINE 1000 ML 1,000 ML IV ONE ×2 (04:15→05:01)
[2019-12-21] MEDS ORDERED: METOCLOPRAMIDE HCL INJ/PF 10 MG/2 ML SDV IV ONE (04:17)
[2019-12-21] MEDS ORDERED: KETOROLAC TROMETHAMINE INJ/PF 30 MG/1 ML SDV IV ONE (04:24)
--- NOTE | 2019-12-21 04:26 | ER Document Report ---
ED General - General Chief Complaint: Headache Stated Complaint: HEADACHE Time Seen by Provider: 12/21/19 04:11 Primary Care Provider: XIOMY HARDING FNP-C [Primary Care Provider] - Follow up as needed Mode of Arrival: Medic Information source: Patient, Emergency Med Personnel Notes: Patient is a 63-year-old male presenting to the emergency department via EMS with onset of vomiting, headache and nausea that began just prior to arrival. Patient reports the symptoms awoke him from sleep. Patient denies any chest pain or shortness of breath. He does arrive very diaphoretic and pale but with otherwise stable vital signs. He reports multiple episodes of similar events, he states his doctor thinks it is related to his Bydureon injections. TRAVEL OUTSIDE OF THE [place] IN LAST 30 DAYS: No - Related Data Allergies/Adverse Reactions: No Known Allergies Allergy (Verified 06/13/17 11:14) Past Medical History - General Information source: Patient - Social History Smoking Status: Former Smoker Frequency of alcohol use: None Drug Abuse: None Family History: DM Patient has suicidal ideation: No Patient has homicidal ideation: No - Past Medical History Cardiac Medical History: Reports: Hx Coronary Artery Disease, Hx Peripheral Vascular Disease Denies: Hx Heart Attack, Hx Hypertension Pulmonary Medical History: Reports: Hx Pneumonia - hx Denies: Hx Asthma, Hx Bronchitis, Hx COPD Neurological Medical History: Denies: Hx Cerebrovascular Accident, Hx Seizures Endocrine Medical History: Reports: Hx Diabetes Mellitus Type 2 Renal/ Medical History: Denies: Hx Peritoneal Dialysis Musculoskeletal Medical History: Reports Hx Arthritis Past Surgical History: Reports: Hx Coronary Artery Bypass Graft, Hx Open Heart Surgery, Hx Orthopedic Surgery - left 2nd toe amputated - Immunizations Hx Diphtheria, Pertussis, Tetanus Vaccination: Yes Review of Systems - Review of Systems Constitutional: Diaphoresis EENT: No symptoms reported Cardiovascular: No symptoms reported Respiratory: No symptoms reported Gastrointestinal: Nausea, Vomiting Genitourinary: No symptoms reported Male Genitourinary: No symptoms reported Musculoskeletal: No symptoms reported Skin: No symptoms reported Hematologic/Lymphatic: No symptoms reported Neurological/Psychological: Headaches Physical Exam - Vital signs Vitals: Resp Pulse Ox 17 94 12/21/19 04:20 12/21/19 04:20 - Notes Notes: PHYSICAL EXAMINATION: GENERAL: Ill-appearing, actively vomiting. HEAD: Atraumatic, normocephalic. EYES: Pupils equal round and reactive to light, extraocular movements intact, sclera anicteric, conjunctiva are normal. ENT: Nares patent, oropharynx clear without exudates. Moist mucous membranes. NECK: Normal range of motion, supple without lymphadenopathy LUNGS: Breath sounds clear to auscultation bilaterally and equal. No wheezes rales or rhonchi. HEART: Regular rate and rhythm without murmurs ABDOMEN: Soft, nontender, distended abdomen. No guarding, no rebound. No masses appreciated. Musculoskeletal: Normal range of motion, no pitting or edema. No cyanosis. NEUROLOGICAL: Cranial nerves grossly intact. Normal speech. Normal sensory, motor exams PSYCH: Normal mood, normal affect. SKIN: Clammy, diaphoretic. Course - Re-evaluation Re-evalutation: 12/21/19 05:00 Attending physician at bedside to evaluate patient. 12/21/19 05:25 Called and spoke with on-call phlebotomy program coordinator, Dr. Sanchez, he agrees to consult on patient for stress test/rule out ACS. 12/21/19 05:42 Patient accepted for admission by hospitalist. - Vital Signs Vital signs: Temp Pulse Resp BP Pulse Ox 97.3 F 19 177/82 H 94 12/21/19 05:01 12/21/19 05:01 12/21/19 05:01 12/21/19 05:01 - Laboratory Result Diagrams: 12/21/19 04:29 12/21/19 04:29 Laboratory results interpreted by me: 12/21/19 12/21/19 12/21/19 04:29 04:29 04:29 RDW 14.5 H Sodium 136.2 L Glucose 269 H Creatine Kinase 468 H CK-MB (CK-2) 10.90 H Discharge - Discharge Clinical Impression: acs rule out Vomiting Qualifiers: Vomiting type: unspecified Vomiting Intractability: unspecified Nausea presence: with nausea Qualified Code(s): R11.2 - Nausea with vomiting, unspecified Headache Qualifiers: Headache type: unspecified Headache chronicity pattern: unspecified pattern Intractability: not intractable Qualified Code(s): R51 - Headache Condition: Stable Disposition: ADMITTED INPATIENT Admitting Provider: Aissatou (Hospitalist) Unit Admitted: Telemetry Referrals: XIOMY HARDING FNP-C [Primary Care Provider] - Follow up as needed
[2019-12-21 04:43] LABS: ABSOLUTE BASOPHILS # (AUTO) 0.1 10^3/uL (0.0-0.2); ABSOLUTE EOSINOPHILS # (AUTO) 0.3 10^3/uL (0.0-0.6); ABSOLUTE LYMPHOCYTES (AUTO) 1.7 10^3/uL (0.5-4.7); ABSOLUTE MONOCYTES (AUTO) 0.4 10^3/uL (0.1-1.4); ABSOLUTE NEUT (AUTO) 5.4 10^3/uL (1.7-8.2); BASOPHILS % (AUTO) 0.9 % (0-2); EOSINOPHILS % (AUTO) 3.4 % (0-6); HEMATOCRIT 39.5 % (37.9-51.0); HEMOGLOBIN 13.7 g/dL (13.5-17.0); LYMPHOCYTES % (AUTO) 21.8 % (13-45); MEAN CORPUSCULAR HEMOGLOBIN 28.4 pg (27.0-33.4); MEAN CORPUSCULAR HGB CONC 34.6 g/dL (32.0-36.0); MEAN CORPUSCULAR VOLUME 82 fl (80-97); MONOCYTES % (AUTO) 5.5 % (3-13); PLATELET COUNT 207 10^3/uL (150-450); RED BLOOD COUNT 4.82 10^6/uL (4.35-5.55); RED CELL DISTRIBUTION WIDTH 14.5 % (11.5-14.0); SEGMENTED NEUTROPHILS % (AUTO) 68.4 % (42-78); TOTAL CELLS COUNTED % (AUTO) 100 %; WHITE BLOOD COUNT 7.9 10^3/uL (4.0-10.5)
[2019-12-21] MEDS ORDERED: PROMETHAZINE HCL INJ 25 MG/1 ML VIAL IV ONE (05:00)
--- NOTE | 2019-12-21 05:01 | RADIOLOGY REPORT (SQ) ---
EXAM DESCRIPTION: XR CHEST 1 VIEW COMPLETED DATE/TME: 12/21/2019 04:15 CLINICAL HISTORY: 64 years, Male, vomiting/diaphoresis COMPARISON: 07/09/2019 chest NUMBER OF VIEWS: 1 TECHNIQUE: Portable chest LIMITATIONS: None. FINDINGS: Stable cardiomegaly and postsurgical change. Subsegmental atelectasis in the perihilar regions bilaterally. No pneumothorax. Lungs are otherwise clear IMPRESSION: No acute cardiopulmonary process copyright 2010 [employer]- All Rights Reserved
[2019-12-21 05:04] LABS: ALBUMIN 3.9 g/dL (3.5-5.0); ALKALINE PHOSPHATASE 53 U/L (38-126); ANION GAP 8 (5-19); ASPARTATE AMINO TRANSFERASE 37 U/L (17-59); BILIRUBIN,TOTAL 0.4 mg/dL (0.2-1.3); BLOOD UREA NITROGEN 19 mg/dL (7-20); CALCIUM 9.2 mg/dL (8.4-10.2); CARBON DIOXIDE 23 mmol/L (22-30); CHLORIDE 105 mmol/L (98-107); CREATINE KINASE 468 U/L (55-170); GLUCOSE 269 mg/dL (75-110); POTASSIUM 3.9 mmol/L (3.6-5.0); TOTAL PROTEIN 6.8 g/dL (6.3-8.2)
[2019-12-21 05:16] LABS: CREATINE KINASE MB 10.9 ng/mL (<4.55); TROPONIN I 0.013 ng/mL
[2019-12-21] MEDS ORDERED: HEPARIN SOD (PORCINE) 5,000 UNIT/ML 1 ML VIAL SUBCUT SCH (06:00)
[2019-12-21] MEDS ORDERED: MAG HYDROX/AL HYDROX/SIMETH SUSP 30 ML UDCUP PO PRN (06:05)
[2019-12-21] MEDS ORDERED: PROMETHAZINE HCL INJ 25 MG/1 ML VIAL IV PRN (06:05)
[2019-12-21] MEDS ORDERED: ACETAMINOPHEN 325 MG TABLET PO PRN (06:11)
[2019-12-21] MEDS ORDERED: DEXTROSE 40% GEL 15 GM TUBE PO PRN ×2 (06:12)
[2019-12-21] MEDS ORDERED: DEXTROSE 50%-WATER 25 GM/50 ML DISP.SYRIN IV PRN ×2 (06:12)
[2019-12-21] MEDS ORDERED: GLUCAGON,HUMAN RECOMB 1 MG INJ IM PRN (06:12)
--- NOTE | 2019-12-21 06:49 | PDOC H&P ---
History of Present Illness Admission Date/PCP: 12/21/2019 05:42 XIOMY HARDING, ARTISAN PLASTERER-C Patient complains of: Vomiting History of Present Illness: RICARDO WELLS is a 64 year old male who presented to the emergency room with acute vomiting. He admits waking suddenly from sleep with severe nausea and vomiting just shortly before his ER arrival. His nausea and vomiting were accompanied by a severe headache and associated with profuse diaphoresis. He denies other associated or accompanying signs and symptoms. He admits numerous prior similar episodes. His physician thinks that these episodes may be related to the Bydureon injections taken by the patient. He has not identified any aggravating or ameliorating factors for his acute vomiting. In the emergency room he was found to have a troponin I in the normal range and an EKG that showed no evidence of acute myocardial ischemia or injury. Emergency room physician contacted Dr. Sanchez who requested the patient be admitted by the hospitalist service for a stress test. Patient was subsequently admitted to the telemetry unit on observation status, as per Dr. Sanchez's request. Past Medical History Cardiac Medical History: Reports: Coronary Artery Disease, Peripheral Vascular Disease Denies: Atrial Fibrillation, Congestive Heart Failure, Myocardial Infarction, Hypertension Pulmonary Medical History: Reports: Pneumonia - hx Denies: Asthma, Bronchitis, Chronic Obstructive Pulmonary Disease (COPD) EENT Medical History: Denies: Cataracts, Ears - Hearing aids Neurological Medical History: Denies: Hemorrhagic CVA, Ischemic CVA, Seizures Endocrine Medical History: Reports: Diabetes Mellitus Type 2, Obesity Denies: Diabetes Mellitus Type 1, Hyperthyroidism, Hypothyroidism Renal/ Medical History: Denies: Chronic Kidney Disease, Nephrolithiasis Malignancy Medical History: Reports: None GI Medical History: Denies: Cirrhosis, Crohn's Disease, Hepatitis, Ulcerative Colitis Musculoskeltal Medical History: Reports: Arthritis Denies: Gout Skin Medical History: Denies: Eczema, Psoriasis Psychiatric Medical History: Denies: Alcohol Dependency, Substance Abuse, Tobacco Dependency Traumatic Medical History: Reports: None Hematology: Denies: Anemia, Bleeding Tendencies Infectious Medical History: Reports: None Past Surgical History Past Surgical History: Reports: Cardiac Catheterization, Coronary Artery Bypass Graft, Orthopedic Surgery - left 2nd toe amputated Social History Information Source: Patient Lives with: Alone Smoking Status: Former Smoker Electronic Cigarette use?: No Frequency of Alcohol Use: None Hx Recreational Drug Use: No Drugs: None Hx Prescription Drug Abuse: No - Advance Directive Resuscitation Status: Full Code Surrogate healthcare decision maker:: Patient chooses not to provide at this time. Family History Family History: DM. denies: CAD, Hypertension, Malignancy Parental Family History Reviewed: Yes Children Family History Reviewed: No Sibling(s) Family History Reviewed.: Yes Medication/Allergy Home Medications: Gabapentin [Neurontin 300 mg Capsule] 300 mg PO TID 03/05/17 Metformin HCl [Glucophage] 1,000 mg PO BID #60 tablet 03/10/17 Ferrous Sulfate 325 mg PO BID 05/05/17 Glyburide,Micronized [Glyburide Micronized] 3 mg PO DAILY 05/05/17 Acetaminophen [Tylenol Arthritis] 650 mg PO PRN PRN 06/13/17 Atorvastatin Calcium [Lipitor 20 mg Tablet] 80 mg PO QHS 06/13/17 Pharmapure Sugar Jay 2 tab PO DAILY 06/13/17 Oxycodone HCl/Acetaminophen [Percocet 5-325 mg Tablet] 1 tab PO ASDIR PRN #25 tablet 06/25/17 Ondansetron [Zofran Odt 4 mg Tablet] 1 tab PO Q4H PRN #15 tab.rapdis 11/26/18 Ondansetron [Zofran Odt 4 mg Tablet] 1 - 2 tab PO Q4H PRN #15 tab.rapdis 07/09/19 Allergies/Adverse Reactions: No Known Allergies Allergy (Verified 06/13/17 11:14) Review of Systems Constitutional: PRESENT: as per HPI, headache(s). ABSENT: anorexia, fever(s) Eyes: ABSENT: visual disturbances, other - Eye pain Ears: ABSENT: hearing changes, other - Ear pain Nose, Mouth, and Throat: PRESENT: as per HPI, headache(s). ABSENT: sore throat Cardiovascular: ABSENT: chest pain, palpitations Respiratory: ABSENT: cough, dyspnea Gastrointestinal: PRESENT: as per HPI, nausea, vomiting. ABSENT: abdominal pain, constipation, diarrhea Musculoskeletal: ABSENT: back pain, joint swelling Integumentary: PRESENT: as per HPI, diaphoresis. ABSENT: pruritus, rash Neurological: ABSENT: confusion, convulsions, focal weakness, memory loss, syncope Psychiatric: ABSENT: anxiety, depression Endocrine: ABSENT: cold intolerance, heat intolerance Hematologic/Lymphatic: ABSENT: easy bleeding, easy bruising Allergic/Immunologic: ABSENT: seasonal rhinorrhea Physical Exam Vital Signs: Temp Pulse Resp BP Pulse Ox 97.3 F 19 177/82 H 94 12/21/19 05:01 12/21/19 05:01 12/21/19 05:01 12/21/19 05:01 Intake & Output 12/19/19 12/20/19 12/21/19 23:59 23:59 23:59 Intake Total 1000 Balance 1000 Weight 113.1 kg General appearance: PRESENT: no acute distress, cooperative Head exam: PRESENT: atraumatic, normocephalic Eye exam: ABSENT: conjunctival injection, scleral icterus Ear exam: PRESENT: normal external ear exam. ABSENT: bleeding, drainage Mouth exam: PRESENT: dry mucosa, neck supple Neck exam: ABSENT: thyromegaly, tracheal deviation Respiratory exam: PRESENT: clear to auscultation angie, symmetrical, unlabored Cardiovascular exam: PRESENT: RRR. ABSENT: clicks, gallop, rubs Pulses: PRESENT: normal radial pulses, normal dorsalis pedis pul Vascular exam: PRESENT: normal capillary refill. ABSENT: pallor GI/Abdominal exam: PRESENT: normal bowel sounds, soft. ABSENT: tenderness Rectal exam: PRESENT: deferred Extremities exam: ABSENT: joint swelling, pedal edema Musculoskeletal exam: ABSENT: deformity, dislocation Neurological exam: PRESENT: alert, oriented to person, oriented to place, oriented to time, oriented to situation, CN II-XII grossly intact. ABSENT: motor sensory deficit Psychiatric exam: PRESENT: appropriate affect, normal mood Skin exam: PRESENT: dry, intact, warm. ABSENT: jaundice, rash, urticaria Results Laboratory Results: 12/21/19 04:29 12/21/19 04:29 12/21/19 12/21/19 04:29 04:29 WBC 7.9 RBC 4.82 Hgb 13.7 Hct 39.5 MCV 82 MCH 28.4 MCHC 34.6 RDW 14.5 H Plt Count 207 Seg Neutrophils % 68.4 Sodium 136.2 L Potassium 3.9 Chloride 105 Carbon Dioxide 23 Anion Gap 8 BUN 19 Creatinine 0.76 Est GFR ( Amer) > 60 Glucose 269 H Calcium 9.2 Total Bilirubin 0.4 AST 37 Alkaline Phosphatase 53 Total Protein 6.8 Albumin 3.9 12/21/19 12/21/19 04:29 04:29 Creatine Kinase 468 H CK-MB (CK-2) 10.90 H Troponin I 0.013 Impressions: Chest X-Ray 12/21/19 04:15 IMPRESSION: No acute cardiopulmonary process copyright 2010 [employer]- All Rights Reserved Assessment and Plan - Diagnosis (1) Vomiting Qualifiers: Vomiting type: unspecified Vomiting Intractability: non-intractable Nausea presence: with nausea Qualified Code(s): R11.2 - Nausea with vomiting, unspecified Is this a current diagnosis for this admission?: Yes (2) Coronary artery disease Qualifiers: Coronary Disease-Associated Artery/Lesion type: unspecified vessel or lesion type [place] vs. transplanted heart: [place] heart Associated angina: without angina Qualified Code(s): I25.10 - Atherosclerotic heart disease of [place] coronary artery without angina pectoris Is this a current diagnosis for this admission?: Yes (3) Peripheral vascular disease Is this a current diagnosis for this admission?: Yes (4) Headache Qualifiers: Headache type: unspecified Headache chronicity pattern: unspecified pattern Intractability: not intractable Qualified Code(s): R51 - Headache Is this a current diagnosis for this admission?: Yes (5) Diabetes mellitus type 2 in obese Is this a current diagnosis for this admission?: Yes (6) Obesity (BMI 30.0-34.9) Is this a current diagnosis for this admission?: Yes - Plan Summary Summary: Patient is admitted to observation status telemetry unit where he will receive routine supportive and symptomatic cares. He will be seen in consultation by Dr. Sanchez and a cardiac stress test will be performed. Serial cardiac enzymes will be obtained. CBCs metabolic profiles and magnesium levels will be obtained as appropriate. Patient will be continued on his usual medications for chronic medical problems as appropriate. Before meals and at bedtime Accu-Checks to be performed sliding scale insulin for hyperglycemia and a hypoglycemic protocol in place. Patient will be treated with Phenergan 25 mg IV every 4 hours as needed for his nausea or vomiting. Patient will use morphine sulfate 2 to 4 mg IV every 2 hours as needed for chest pain. - Time Time Spent with patient: 15-24 minutes Medications reviewed and adjusted accordingly: Yes Anticipated discharge: Home Within: within 36 hours - Inpatient Certification Based on my medical assessment, after consideration of the patient's comorbidities, presenting symptoms, or acuity I expect that the services needed warrant INPATIENT care.: No I certify that my determination is in accordance with my understanding of Medicare's requirements for reasonable and necessary INPATIENT services [42 CFR 412.3e].: No
[2019-12-21] MEDS ORDERED: MORPHINE SULFATE 10 MG/ML INJ IV PRN ×3 (06:50)
[2019-12-21 07:23] LABS: CREATINE KINASE MB 10.3 ng/mL (<4.55); TROPONIN I 0.015 ng/mL
[2019-12-21] MEDS: SUCRALFATE 1 GM TABLET PO SCH ×2 (07:59→11:25)
[2019-12-21] MEDS: INSULIN REG, HUMAN 100 UNIT/ML 3 ML VIAL (PYX) SUBCUT SCH ×2 (07:59→11:25)
--- NOTE | 2019-12-21 08:08 | EKG REPORT ---
SEVERITY:- ABNORMAL ECG - SINUS RHYTHM NONSPECIFIC INTRAVENTRICULAR CONDUCTION DELAY ANTERIOR INFARCT, AGE INDETERMINATE : Confirmed by: Louie Muhammad MD 21-Dec-2019 08:07:41
[2019-12-21] MEDS ORDERED: DOCUSATE SODIUM 100 MG CAPSULE PO SCH (10:00)
[2019-12-21] MEDS ORDERED: FAMOTIDINE 20 MG TABLET PO SCH (10:00)
--- NOTE | 2019-12-21 10:08 | PDOC CONSULTATION ---
Consultation Consult Date: 12/21/19 Provider Consulted: SHE REAGAN Consult reason:: History of CABG, autonomic symptoms History of Present Illness Admission Date/PCP: 12/21/19 05:53 LEO THOMPSON Patient complains of: Nausea vomiting and diaphoresis History of Present Illness: RICARDO WELLS is a 64 year old male With the following active problems 1. Coronary artery disease 2. CABG-2014 3. Systemic hypertension 4. Dyslipidemia 5. Diabetes mellitus 6. Nicotine dependence in remission 70-year-old male with the following problems. Patient has had repeated episodes although quite sporadic of profound autonomic symptoms including diaphoresis nausea vomiting as well as diarrhea which seem to be temporally related to injectable medicine given for diabetes mellitus. His CABG followed work-up for right shoulder surgery. He does not report any symptoms suggestive of myocardial ischemia such as ongoing chest pain or effort related chest pain or dyspnea. On his usual days he is able to exert without any difficulty. The autonomic symptoms reported above seem to have subsided. Patient also has not had any recent cardiac evaluations whatsoever. No familial illnesses. Surgical history is notable for CABG in 2014. Former smoker. Quit cigarettes 20 years ago. Presently does not smoke. Past Medical History Cardiac Medical History: Reports: Coronary Artery Disease, Peripheral Vascular Disease Denies: Atrial Fibrillation, Congestive Heart Failure, Myocardial Infarction, Hypertension Pulmonary Medical History: Reports: Pneumonia - hx Denies: Asthma, Bronchitis, Chronic Obstructive Pulmonary Disease (COPD) EENT Medical History: Denies: Cataracts, Ears - Hearing aids Neurological Medical History: Denies: Hemorrhagic CVA, Ischemic CVA, Seizures Endocrine Medical History: Reports: Diabetes Mellitus Type 2, Obesity Denies: Diabetes Mellitus Type 1, Hyperthyroidism, Hypothyroidism Renal/ Medical History: Denies: Chronic Kidney Disease, Nephrolithiasis Malignancy Medical History: Reports: None GI Medical History: Denies: Cirrhosis, Crohn's Disease, Hepatitis, Ulcerative Colitis Musculoskeltal Medical History: Reports: Arthritis Denies: Gout Skin Medical History: Denies: Eczema, Psoriasis Psychiatric Medical History: Denies: Alcohol Dependency, Substance Abuse, Tobacco Dependency Traumatic Medical History: Reports: None Hematology: Denies: Anemia, Bleeding Tendencies Infectious Medical History: Reports: None Past Surgical History Past Surgical History: Reports: Cardiac Catheterization, Coronary Artery Bypass Graft, Orthopedic Surgery - left 2nd toe amputated Social History Lives with: Alone Smoking Status: Former Smoker Electronic Cigarette use?: No Frequency of Alcohol Use: None Hx Recreational Drug Use: No Drugs: None Hx Prescription Drug Abuse: No - Advance Directive Resuscitation Status: Full Code Family History Family History: DM. denies: CAD, Hypertension, Malignancy Parental Family History Reviewed: Yes - No familial illnesses of a cardiac nature reported to me Children Family History Reviewed: No Sibling(s) Family History Reviewed.: No Medication/Allergy Home Medications: Metformin HCl [Glucophage] 1,000 mg PO BID #60 tablet 03/10/17 Ferrous Sulfate 325 mg PO BID 05/05/17 Acetaminophen [Tylenol Arthritis] 650 mg PO DAILYP PRN 06/13/17 Atorvastatin Calcium [Lipitor 20 mg Tablet] 20 mg PO QHS 06/13/17 Pharmapure Sugar Jay 2 tab PO DAILY 06/13/17 Cod Liver Oil 1 cap PO DAILY 12/21/19 Dapagliflozin Propanediol [Farxiga] 10 mg PO DAILY 12/21/19 Exenatide Microspheres [Bydureon Pen] 2 mg SUBCUT ANN@1000 12/21/19 Lisinopril [Zestril] 2.5 mg PO DAILY 12/21/19 Allergies/Adverse Reactions: No Known Allergies Allergy (Verified 06/13/17 11:14) Review of Systems Constitutional: PRESENT: other - Diaphoresis Eyes: ABSENT: as per HPI, visual disturbances, other Ears: ABSENT: as per HPI, hearing changes, other Nose, Mouth, and Throat: ABSENT: as per HPI, headache(s), mouth pain, sore throat, vertigo, other Cardiovascular: ABSENT: as per HPI, chest pain, dyspnea on exertion, edema, orthropnea, palpitations, other Respiratory: ABSENT: as per HPI, cough, dyspnea, hemoptysis, sputum, other Gastrointestinal: PRESENT: diarrhea, nausea, vomiting Neurological: PRESENT: as per HPI Physical Exam Vital Signs: Temp Pulse Resp BP Pulse Ox 97.3 F 63 19 140/74 H 96 12/21/19 08:07 12/21/19 08:07 12/21/19 08:07 12/21/19 08:07 12/21/19 08:07 Intake & Output 12/20/19 12/21/19 12/22/19 06:59 06:59 06:59 Intake Total 1999 Balance 1999 Weight 113.1 kg General appearance: PRESENT: cooperative, obese, well-developed, well-nourished Eye exam: PRESENT: conjunctiva pink, EOMI Mouth exam: PRESENT: dry mucosa Respiratory exam: PRESENT: clear to auscultation angie, symmetrical, unlabored Cardiovascular exam: PRESENT: RRR, +S1, +S2 Pulses: PRESENT: normal radial pulses GI/Abdominal exam: PRESENT: soft Rectal exam: PRESENT: deferred Musculoskeletal exam: PRESENT: ambulatory, normal inspection Neurological exam: PRESENT: alert, awake, oriented to person, oriented to place, oriented to time, oriented to situation Psychiatric exam: PRESENT: appropriate affect Skin exam: PRESENT: dry Results Laboratory Results: 12/21/19 04:29 12/21/19 04:29 12/21/19 12/21/19 04:29 04:29 WBC 7.9 RBC 4.82 Hgb 13.7 Hct 39.5 MCV 82 MCH 28.4 MCHC 34.6 RDW 14.5 H Plt Count 207 Seg Neutrophils % 68.4 Sodium 136.2 L Potassium 3.9 Chloride 105 Carbon Dioxide 23 Anion Gap 8 BUN 19 Creatinine 0.76 Est GFR ( Amer) > 60 Glucose 269 H Calcium 9.2 Total Bilirubin 0.4 AST 37 Alkaline Phosphatase 53 Total Protein 6.8 Albumin 3.9 12/21/19 12/21/19 12/21/19 04:29 04:29 06:25 Creatine Kinase 468 H 382 H CK-MB (CK-2) 10.90 H Troponin I 0.013 12/21/19 06:25 Creatine Kinase CK-MB (CK-2) 10.30 H Troponin I 0.015 EKG Comments: Twelve-lead EKG 12/19/2019 Independently reviewed by me. Sinus rhythm, nonspecific IVCD, anterior infarction , QTC 456 ms Chest x-ray 12/21/2019 Postsurgical changes no acute changes. Stable cardiomegaly Troponin 0.013--> 0.015 Impressions: Chest X-Ray 12/21/19 04:15 IMPRESSION: No acute cardiopulmonary process copyright 2011 [employer]- All Rights Reserved Assessment & Plan - Diagnosis (1) Coronary artery disease Qualifiers: Coronary Disease-Associated Artery/Lesion type: unspecified vessel or lesion type [place] vs. transplanted heart: [place] heart Associated angina: without angina Qualified Code(s): I25.10 - Atherosclerotic heart disease of [place] cor onary artery without angina pectoris Is this a current diagnosis for this admission?: Yes Plan: Although symptoms are not convincing for angina there are predominant autonomic symptoms which could be a surrogate for angina No recent cardiac evaluation is reported We will observe on telemetry. 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 Would recommend continuing aspirin 81 mg daily Would recommend low-dose beta-jay metoprolol 12.5 mg twice daily if possible. Continue atorvastatin Continue lisinopril We will follow trend troponins and plan for stress testing in the next 24 hours based on clinical course to make sure that his symptoms are not related to underlying myocardial ischemia. (2) Hypertension Is this a current diagnosis for this admission?: Yes Plan: Low-dose beta-jay if feasible Lisinopril 2.5 mg daily to be continued Avoid added salt (3) Dyslipidemia Is this a current diagnosis for this admission?: Yes Plan: Continue statin - Notes Notes: It would be reasonable to evaluate for myocardial ischemia given predominant autonomic symptoms. However temporally symptoms seem to be related to injectable medicine for diabetes.
[2019-12-21] MEDS ORDERED: METOCLOPRAMIDE HCL 10 MG TABLET PO SCH (11:00)
[2019-12-21 11:59] VITALS: BP 126/72
--- NOTE | 2019-12-21 12:17 | PDOC DISCHARGE SUMMARY ---
Impression - Admit/DC Date/PCP Admission Date/Primary Care Provider: 12/21/19 05:53 LEO THOMPSON Discharge Date: 12/21/19 - Discharge Diagnosis (1) Medication adverse effect Is this a current diagnosis for this admission?: Yes (2) Nausea vomiting and diarrhea Is this a current diagnosis for this admission?: Yes (3) Coronary artery disease Is this a current diagnosis for this admission?: Yes (4) Diabetes mellitus type 2 in obese Is this a current diagnosis for this admission?: Yes (5) Obesity (BMI 30.0-34.9) Is this a current diagnosis for this admission?: Yes - Additional Information Resuscitation Status: Full Code Discharge Diet: Diabetic Discharge Activity: Activity As Tolerated Referrals: XIOMY HARDING FNP-C [Primary Care Provider] - 12/29/19 1:30 pm Home Medications: Metformin HCl [Glucophage] 1,000 mg PO BID #60 tablet 03/10/17 Ferrous Sulfate 325 mg PO BID 05/05/17 Acetaminophen [Tylenol Arthritis] 650 mg PO DAILYP PRN 06/13/17 Atorvastatin Calcium [Lipitor 20 mg Tablet] 20 mg PO QHS 06/13/17 Pharmapure Sugar Jay 2 tab PO DAILY 06/13/17 Cod Liver Oil 1 cap PO DAILY 12/21/19 Dapagliflozin Propanediol [Farxiga] 10 mg PO DAILY 12/21/19 Lisinopril [Zestril] 2.5 mg PO DAILY 12/21/19 History of Present Illiness History of Present Illness: Per admitting physician: RICARDO WELLS is a 64 year old male who presented to the emergency room with acute vomiting. He admits waking suddenly from sleep with severe nausea and vomiting just shortly before his ER arrival. His nausea and vomiting were accompanied by a severe headache and associated with profuse diaphoresis. He denies other associated or accompanying signs and symptoms. He admits numerous prior similar episodes. His physician thinks that these episodes may be related to the Bydureon injections taken by the patient. He has not identified any aggravating or ameliorating factors for his acute vomiting. In the emergency room he was found to have a troponin I in the normal range and an EKG that showed no evidence of acute myocardial ischemia or injury. Emergency room physician contacted Dr. Sanchez who requested the patient be admitted by the hospitalist service for a stress test. Patient was subsequently admitted to the telemetry unit on observation status, as per Dr. Sanchez's request. Hospital Course Hospital Course: Patient was admitted for evaluation of his symptoms of nausea vomiting, diarrhea as well as subsequent diaphoresis. EKG was obtained which showed no significant change from prior. Troponin was obtained which was flat without any significant elevation. Patient denies ever experiencing any shortness of breath or chest pain during the episode. On conversation with patient today, patient states that he has been having several episodes of this symptoms since he was placed on exenatide injections a few months ago. His symptoms tend to occur a few times a week. Denies any improvement with rest. Has not checked his blood sugar at the time but did state that his blood sugar was checked this last time was in the 200s during the episode. He had discussed with his primary care provider who who thinks he may be related to his exenatide medication. Notably exenatide is very well known to cause GI upset including nausea vomiting and diarrhea which can often lead to diaphoresis as a major side effect of this medication. I have advised patient to hold off on taking more exenatide for now and to follow-up with his primary care provider about considering a change to this regimen. Patient is in agreement and would like to be discharged home. He does have a history of heart disease but his constellation of symptoms best fit with exenatide side effect. Patient is set to see his primary care provider in 1 week. He has been advised that if his symptoms do not resolve with discontinuation of the exenatide then he may need to be evaluated for stress testing by his primary care provider. Physical Exam Vital Signs: Temp Pulse Resp BP Pulse Ox 97.3 F 63 19 126/72 H 96 12/21/19 11:06 12/21/19 11:06 12/21/19 11:06 12/21/19 10:51 12/21/19 11:06 Intake & Output 12/20/19 12/21/19 12/22/19 06:59 06:59 06:59 Intake Total 1999 240 Balance 1999 240 Weight 113.1 kg General appearance: PRESENT: no acute distress, cooperative Neck exam: ABSENT: JVD Respiratory exam: PRESENT: unlabored. ABSENT: tachypnea, wheezes Results Laboratory Results: WBC 7.9 10^3/uL (4.0-10.5) 12/21/19 04:29 RBC 4.82 10^6/uL (4.35-5.55) 12/21/19 04:29 Hgb 13.7 g/dL (13.5-17.0) 12/21/19 04:29 Hct 39.5 % (37.9-51.0) 12/21/19 04:29 MCV 82 fl (80-97) 12/21/19 04:29 MCH 28.4 pg (27.0-33.4) 12/21/19 04:29 MCHC 34.6 g/dL (32.0-36.0) 12/21/19 04:29 RDW 14.5 % (11.5-14.0) H 12/21/19 04:29 Plt Count 207 10^3/uL (150-450) 12/21/19 04:29 Lymph % (Auto) 21.8 % (13-45) 12/21/19 04: [place] % (Auto) 5.5 % (3-13) 12/21/19 04:29 Eos % (Auto) 3.4 % (0-6) 12/21/19 04:29 Baso % (Auto) 0.9 % (0-2) 12/21/19 04:29 Absolute Neuts (auto) 5.4 10^3/uL (1.7-8.2) 12/21/19 04:29 Absolute Lymphs (auto) 1.7 10^3/uL (0.5-4.7) 12/21/19 04:29 Absolute Monos (auto) 0.4 10^3/uL (0.1-1.4) 12/21/19 04:29 Absolute Eos (auto) 0.3 10^3/uL (0.0-0.6) 12/21/19 04:29 Absolute Basos (auto) 0.1 10^3/uL (0.0-0.2) 12/21/19 04:29 Seg Neutrophils % 68.4 % (42-78) 12/21/19 04:29 Sodium 136.2 mmol/L (137-145) L 12/21/19 04:29 Potassium 3.9 mmol/L (3.6-5.0) 12/21/19 04:29 Chloride 105 mmol/L (98-107) 12/21/19 04:29 Carbon Dioxide 23 mmol/L (22-30) 12/21/19 04:29 Anion Gap 8 (5-19) 12/21/19 04:29 BUN 19 mg/dL (7-20) 12/21/19 04:29 Creatinine 0.76 mg/dL (0.52-1.25) 12/21/19 04:29 Est GFR ( Amer) > 60 (>60) 12/21/19 04:29 Est GFR (MDRD) Non-Af > 60 (>60) 12/21/19 04:29 Glucose 269 mg/dL (75-110) H 12/21/19 04:29 POC Glucose 210 mg/dL (70-110) H 12/21/19 10:48 Calcium 9.2 mg/dL (8.4-10.2) 12/21/19 04:29 Total Bilirubin 0.4 mg/dL (0.2-1.3) 12/21/19 04:29 Direct Bilirubin 0.0 mg/dL (0.0-0.4) 12/21/19 04:29 Neonat Total Bilirubin Not Reportable 12/21/19 04:29 Neonat Direct Bilirubin Not Reportable 12/21/19 04:29 Neonat Indirect Bili Not Reportable 12/21/19 04:29 AST 37 U/L (17-59) 12/21/19 04:29 ALT 29 U/L (<50) 12/21/19 04:29 Alkaline Phosphatase 53 U/L (38-126) 12/21/19 04:29 Creatine Kinase 382 U/L (55-170) H 12/21/19 06:25 CK-MB (CK-2) 10.30 ng/mL (<4.55) H 12/21/19 06:25 Troponin I 0.015 ng/mL 12/21/19 06:25 Total Protein 6.8 g/dL (6.3-8.2) 12/21/19 04:29 Albumin 3.9 g/dL (3.5-5.0) 12/21/19 04:29 12/21/19 12/21/19 04:29 06:25 CK-MB (CK-2) 10.90 H 10.30 H Troponin I 0.013 0.015 Impressions: Chest X-Ray 12/21/19 04:15 IMPRESSION: No acute cardiopulmonary process copyright 2011 [employer]- All Rights Reserved Plan Time Spent: Less than 30 Minutes Stroke Is this a Stroke Patient?: No Acute Heart Failure - Is this a Heart Failure Patient?: No
== END 2019-12-21 12:27 | disposition home or self-care (01) ==
LOC: ER 04:08 → EH 05:53 → INTOOBSV 05:53 → 4S 06:43
PROVIDERS: ADMIT Emergency Medicine; ATTEND Internal Medicine
DX: R11.2 Nausea with vomiting, unspecified (principal); R19.7 Diarrhea, unspecified; R51 Headache; T38.3X5A Adverse effect of insulin and oral hypoglycemic [antidiabetic] drugs, initial encounter; I25.10 Atherosclerotic heart disease of native coronary artery without angina pectoris; E11.51 Type 2 diabetes mellitus with diabetic peripheral angiopathy without gangrene; E66.9 Obesity, unspecified; R61 Generalized hyperhidrosis; E78.5 Hyperlipidemia, unspecified; I10 Essential (primary) hypertension; M19.90 Unspecified osteoarthritis, unspecified site; Z68.34 Body mass index [BMI] 34.0-34.9, adult; Z79.899 Other long term (current) drug therapy; Z79.84 Long term (current) use of oral hypoglycemic drugs; Z95.1 Presence of aortocoronary bypass graft; Z87.891 Personal history of nicotine dependence; Z60.2 Problems related to living alone
CPT/HCPCS: 93005; 99285; 96361; 96374; 96375; 36415; 82553; 82962; 82550; 85025; 80053; 84484; 71045; 93010; G0378 ×2; J3490 ×2; J1885; J2765; J1815; J2550; J7030

== ENCOUNTER → 2020-02-21 | Outpatient (CLI) | payer MEDICAID ==
--- NOTE | 2020-02-21 13:51 | RADIOLOGY REPORT (SQ) ---
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 Images stored on PACS. LIMITATIONS: None. FINDINGS: RIGHT CAROTID CCA Velocities: Within normal limits. Right common carotid artery peak systolic velocity 0.97 m/sec ICA Velocities Peak systolic 0.46 m/s. End diastolic 0.13 m/s. Proximal ICA/CCA peak systolic ratio normal. Spectra normal. No significant plaque. LEFT CAROTID CCA Velocities: Within normal limits. Left common carotid artery peak systolic velocity 1.0 m/sec ICA Velocities Peak systolic 0.47 m/s. End diastolic 0.15 m/s. Proximal ICA/CCA peak systolic ratio normal. Spectra normal. No significant plaque. VERTEBRAL ARTERIES: Antegrade flow. Normal waveforms. SUBCLAVIAN ARTERIES: Not evaluated OTHER: No other significant finding. IMPRESSION: NO HEMODYNAMICALLY SIGNIFICANT STENOSIS AT THE CAROTID BIFURCATIONS. COMMENT: Quality ID #195: Velocity criteria are extrapolated from the diameter data as defined by t he Society of Radiologists in Ultrasound Consensus Conference. Radiology 2003: 229; 340-346. TECHNICAL DOCUMENTATION: JOB ID: [id number] 2010 [employer]- All Rights Reserved Reading location - IP/workstation name: [email or web address]
== END ==
LOC: SP 08:38
PROVIDERS: ATTEND Ophthalmology
DX: H34.211 Partial retinal artery occlusion, right eye (principal)
CPT/HCPCS: 93880

== ENCOUNTER 2020-05-30 06:21 | Day surgery (SDC) | payer MEDICAID ==
[~2020-05-30 06:21] MED LIST changes: -ACETAMINOPHEN 325 MG TABLET PO PRN; +BUPIVACAINE HCL 0.75% INJ/PF (7.5 MG/1 ML) 10 ML SDV OD PRN; -DEXAMETHASONE SOD PHOSPHATE INJ 4 MG/1 ML VIAL ONE; -GLYCOPYRROLATE INJ 0.4 MG/2 ML VIAL ONE; +KETOROLAC TROMETHAMINE 0.45% 4 DROP/0.4 ML DROPERETTE OD PRN; -LIDOCAINE 2% INJ-PF (20 MG/ML) 10 ML AMPUL ONE; +LIDOCAINE 4% INJ/PF (40 MG/ML) 5 ML AMPUL OD PRN; -NEOSTIGMINE METHYLSULFATE 10 MG/10 ML VIAL ONE; -NORMAL SALINE 1000 ML (RENAL PATIENTS) IV PRN; -ONDANSETRON HCL INJ/PF 4 MG/2 ML SDV ONE; -PHENYLEPHRINE HCL INJ/PF 10 MG/1 ML SDV ONE; -ROCURONIUM BROMIDE INJ 50 MG/5 ML VIAL IV ONE; -SUCCINYLCHOLINE CHLORIDE INJ 200 MG/10 ML VIAL ONE
[2020-05-30] MEDS: TETRACAINE HCL 0.5% OPH SOLN 4 ML OD PRN ×3 (06:48→07:29)
[2020-05-30] MEDS: TROPICAMIDE 1% OPH SOLN 15 ML OD PRN ×3 (06:48→07:11)
[2020-05-30] MEDS: BESIFLOXACIN HCL 0.6% OPH SUSP 5 ML BOTTLE OD PRN ×4 (06:49→08:02)
[2020-05-30] MEDS: CYCLOPENTOLATE 0.2%/PHENYLEPHRINE 1% OPH SOLN 2 ML OD PRN ×3 (06:49→07:11)
[2020-05-30] MEDS ORDERED: MIDAZOLAM 2 MG/2 ML INJ ONE (07:16)
[2020-05-30] MEDS ORDERED: FENTANYL CITRATE INJ/PF 100 MCG/2 ML AMPUL ONE (07:18)
[2020-05-30] MEDS: CHONDR SU A NA/HYALUR INTRAOC KIT (SURGICARE) ONE ×2 (07:49→07:50)
[2020-05-30] MEDS: EPINEPHRINE INJ/PF 1 MG/1 ML AMPULE ONE ×2 (07:49→07:50)
[2020-05-30] MEDS: LIDOCAINE 1% INJ-PF (10 MG/ML) 30 ML SDV ONE ×2 (07:49→07:50)
[2020-05-30] MEDS: PREDNISOLONE ACETATE 1% OPH SUSP 5 ML OD PRN ×2 (08:02)
[2020-05-30] MEDS: DORZOLAMIDE HCL 2%/TIMOLOL MALEAT 0.5% OPH SOLN 10 ML OD PRN ×2 (08:02)
--- NOTE | 2020-05-30 14:37 | Operative Report ---
Operative Report-[facility] Operative Report: DATE OF SURGERY: 05/30/2020 PREOPERATIVE DIAGNOSIS: CATARACT, RIGHT EYE. POSTOPERATIVE DIAGNOSIS: CATARACT, RIGHT EYE. PROCEDURE PERFORMED: PHACOEMULSIFICATION WITH POSTERIOR CHAMBER INTRAOCULAR LENS, RIGHT EYE. Intraocular Lens Model : MX60E 20.5 Total Phaco Time: 5 CDE SURGEON: ADA FENG MD ANESTHESIA: TOPICAL WITH MAC. INDICATIONS FOR SURGERY: Difficulty reading small print and glare with night driving. PROCEDURE: The patient was brought to the Operating Room and placed on the operative table. Following tetracaine drops, topical anesthesia was administered. This consisted of instrument wipe pledgets soaked in a solution of 4% Xylocaine mixed with 0.75% Marcaine in a 1:2 ratio. A 2 x 1 cm pledget was placed in the superior fornix. A 1 x 1 cm pledget was placed in the inferior fornix. The eye was patched shut for 5 minutes. The patch was removed. The eye was sterilely prepped and draped in the usual manner. Lid speculum was placed in the eye. The pledgets were removed. 4-0 black silk sutures were placed around the superior and the inferior rectus muscles to be used as traction. A conjunctival peritomy was made at the 10 o'clock position. Hemostasis was obtained with bipolar cautery. A posterior limbal groove was created using a crescent knife and dissected anteriorly towards the cornea. A sharp point blade was used to create a paracentesis site at the 2 o'clock position. 0.2 cc non preserved Lidocaine was injected into the anterior chamber. A 2.4 mm keratome was used to enter the anterior chamber through the groove. Viscoelastic was injected into the anterior chamber. An anterior capsulotomy was performed using Utrata forceps in a capsulorrhexis fashion. Hydrodissection and hydrodelineation were performed. Phacoemulsification was performed in [id number] technique. Following this, the I/A unit was used to remove residual cortex. Viscoelastic was injected into the capsular bag. The Intraocular lens was placed in the capsular bag. The I/A unit was used to remove residual viscoelastic. The wound was seen to be watertight under high and low pressure, and no sutures were placed. The intraocular lens was well centered. The pressure was adjusted in the eye to normal pressure. The 4-0 black silk sutures and lid speculum were removed. The eye was shielded after Besivance. prednisolone, and Cosopt drops were placed. The patient tolerated the procedure well and was sent to the Recovery Room in good condition.
== END 2020-05-30 08:41 | disposition home or self-care (01) ==
LOC: SC 06:21
PROVIDERS: ATTEND Ophthalmology
DX: H25.811 Combined forms of age-related cataract, right eye (principal); H40.61 Glaucoma secondary to drugs, right eye; E11.3311 Type 2 diabetes mellitus with moderate nonproliferative diabetic retinopathy with macular edema, right eye; E11.3512 Type 2 diabetes mellitus with proliferative diabetic retinopathy with macular edema, left eye; H01.002 Unspecified blepharitis right lower eyelid; H01.005 Unspecified blepharitis left lower eyelid; M19.90 Unspecified osteoarthritis, unspecified site; E78.00 Pure hypercholesterolemia, unspecified; Z87.891 Personal history of nicotine dependence; Z79.4 Long term (current) use of insulin; Z79.84 Long term (current) use of oral hypoglycemic drugs; Z79.899 Other long term (current) drug therapy
CPT/HCPCS: 66984; 82962; V2632; J2250; J3490 ×6; J0171; J3010